=== PATIENT | female | born 1970 | race Two or more races ===

== ENCOUNTER → 2019-10-19 | Outpatient (CLI) | payer OTHER ==
--- NOTE | 2019-10-19 11:58 | XR ---
EXAMINATION TYPE: XR shoulder complete LT DATE OF EXAM: 10/19/2019 COMPARISON: NONE HISTORY: 49-year-old female with shoulder pain TECHNIQUE: 3 views FINDINGS: Subacromial space is preserved. No tendinous or bursal calcifications. No acute fracture, subluxation , or dislocation seen. Suggestion of a tiny calcified granuloma peripheral left upper lobe. IMPRESSION: No acute osseous abnormality seen.
== END | disposition home or self-care (01) ==
LOC: RADXRMAIN 09:24
PROVIDERS: ATTEND Family Medicine
DX: M25.812 Other specified joint disorders, left shoulder (principal); M25.512 Pain in left shoulder

== ENCOUNTER → 2020-02-16 | Outpatient (CLI) | payer OTHER ==
[2020-02-16 10:31] LABS: Basophils % (A) 0 %; Eosinophils # (A) 0.1 k/uL (0-0.7); Eosinophils % (A) 1 %; HCT 38.6 % (34.0-46.0); HGB 12.3 gm/dL (11.4-16.0); Hypochromasia Slight; Lymphocytes # (A) 1.8 k/uL (1.0-4.8); Lymphocytes % (A) 24 %; MCH 29.6 pg (25.0-35.0); MCHC 31.9 g/dL (31.0-37.0); MCV 92.8 fL (80.0-100.0); Mean Platelet Volume 9.1; Monocytes # (A) 0.5 k/uL (0-1.0); Monocytes % (A) 7 %; Neutrophils # (A) 5.2 k/uL (1.3-7.7); Neutrophils % (A) 67 %; Platelet Count 286 k/uL (150-450); RBC 4.16 m/uL (3.80-5.40); RDW 15.2 % (11.5-15.5); WBC 7.8 k/uL (3.8-10.6)
[2020-02-16 12:54] LABS: Erythrocyte Sedimentation Rate 47 mm/hr (0-20)
[2020-02-16 18:13] LABS: Cyclic Citrull Pep IgG Unit <0.5 U/mL; Cyclic Citrullinated Pep IgG NEGATIVE (NEGATIVE)
[2020-02-16 18:20] LABS: Hemoglobin A1C 9.5 % (4.0-6.0)
[2020-02-16 18:48] LABS: T4, Free (Free Thyroxine) 1.5 ng/dL (0.80-1.80)
[2020-02-16 19:23] LABS: African American GFR (CKD) 88.2 (60.0-200.0); Albumin 4.5 g/dL (3.80-4.90); Albumin/Globulin Ratio 1.61 (1.60-3.17); Anion Gap 12.8 mmol/L (4.00-12.00); BUN/Creat Ratio 24.44 Ratio (12.00-20.00); C Reactive Protein 0.4 mg/dL (0.0-0.8); Calcium 9.7 mg/dL (8.7-10.3); Carbon Dioxide 22.2 mmol/L (21.6-31.8); Chol/HDL Ratio 3.35; Globulin 2.8 g/dL (1.6-3.3); LDL Cholesterol,Calculated 94.6 mg/dL (0.0-131.0); Non-African American GFR(CKD) 76.1 (60.0-200.0); Potassium 3.9 mmol/L (3.5-5.5); Total Bilirubin 0.6 mg/dL (0.3-1.2); Total Protein 7.3 g/dL (6.2-8.2); Uric Acid 4.7 mg/dL (2.9-7.7); VLDL Calculation 27.4 mg/dL (5.00-40.00)
== END | disposition home or self-care (01) ==
LOC: LABWHC1 09:06
PROVIDERS: ATTEND Family Medicine
DX: E11.9 Type 2 diabetes mellitus without complications (principal); M54.12 Radiculopathy, cervical region; G89.4 Chronic pain syndrome; R51 Headache
CPT/HCPCS: 36415; 80053; 80061; 82607; 83036; 84439; 84443; 84550; 85025; 85652; 86038; 86140; 86200

== ENCOUNTER → 2020-08-22 | Outpatient (CLI) | payer OTHER ==
[2020-08-22 08:51] VITALS: BP 148/80; PULSE 89; RESP 18; TEMP 98.2
--- NOTE | 2020-08-22 09:50 | P.HPOB ---
History of Present Illness H&P Date: 08/22/20 Chief Complaint: The patient is here for her routine gynecologic exam. This is a 50-year-old with an LMP of 08/14/2020. The patient is here to establish with this office. Her last pelvic exam was about 2 years ago. She is status post tubal ligation. She speaks little Italian and translation when needed was done by her granddaughter and with a translation application on her phone. She is without gynecologic complaints. Her menstrual periods are regular every month. She denies vaginal discharge. Review of Systems She denies respiratory, cardiac, or GI problems. Past Medical History Past Medical History: Diabetes Mellitus, GERD/Reflux, Hyperlipidemia, Hypertension Additional Past Medical History / Comment(s): History of headaches. PAST [employer]OR OF [employer]INO HISTORY: She has no history of STDs. History of Any Multi-Drug Resistant Organisms: None Reported Past Surgical History: Section, Cholecystectomy Additional Past Surgical History / Comment(s): section 2. One vaginal delivery. Past Psychological History: Anxiety, Depression Smoking Status: Former smoker Past Alcohol Use History: None Reported Additional Past Alcohol Use History / Comment(s): Quit smoking around 2017. Past Drug Use History: None Reported Additional History: She is single and is not seeing anybody at this time. She recently moved to [place] from [place]. She does not work outside of the home. - Past Family History Mother Family Medical History: Cancer, Diabetes Mellitus Additional Family Medical History / Comment(s): Breast cancer. A maternal aunt had breast cancer. Father Family Medical History: Cancer, Diabetes Mellitus, Hypertension Additional Family Medical History / Comment(s): Colon cancer. Medications and Allergies Home Medications Medication Instructions Recorded Confirmed Type ARIPiprazole [Abilify] 5 mg PO DAILY 08/22/20 08/22/20 History Atorvastatin [Lipitor] 80 mg PO DAILY 08/22/20 08/22/20 History Butalbital/Aspirin/Caffeine 1 cap PO Q4H PRN 08/22/20 08/22/20 History [Bnbulzvajq-ILF-Canpurvi Cap 50-325-40] DULoxetine HCL [Cymbalta] 30 mg PO DAILY 08/22/20 08/22/20 History Diclofenac Sodium [Diclofenac 100 mg PO DAILY 08/22/20 08/22/20 History Sodium ER] Ertugliflozin Pidolate [Steglatro] 5 mg PO DAILY 08/22/20 08/22/20 History Gabapentin 600 mg PO TID 08/22/20 08/22/20 History Glimepiride [Amaryl] 4 mg PO DAILY 08/22/20 08/22/20 History Omeprazole 20 mg PO DAILY 08/22/20 08/22/20 History Pioglitazone [Actos] 30 mg PO DAILY 08/22/20 08/22/20 History Propranolol HCl [Inderal Xl] 80 mg PO DAILY PRN 08/22/20 08/22/20 History Topiramate [Topamax] 25 mg PO DAILY 08/22/20 08/22/20 History metFORMIN HCL 1,000 mg PO BID 08/22/20 08/22/20 History traMADol HCL 0 mg PO DAILY PRN 08/22/20 08/22/20 History Allergies Allergy/AdvReac Type Severity Reaction Status Date / Time isometheptene [From Migral] AdvReac Unknown Unverified 08/22/20 08:47 Exam Vital Signs Temp Pulse Resp BP Pulse Ox 08/22/20 08:47 98.2 F 89 18 148/80 100 Intake and Output 08/21/20 08/22/20 08/22/20 22:59 06:59 14:59 Other: Weight 80.739 kg Height 5 feet 6 inches, weight 178 pounds, BMI 28.7. This is a well-developed well-nourished female who is alert and oriented times 3 in no acute distress. HEENT: Within normal limits. NECK: Supple without mass or thyromegaly. CHEST AND LUNGS: Clear to auscultation. HEART: Regular rate and rhythm. BREASTS: Are without mass or discharge. AXILLARY EXAM: Negative for adenopathy. BACK: Negative for CVA tenderness. ABDOMEN: Soft, nontender, without palpable masses. PELVIC EXAM: Normal external genitalia. Cervix and vagina appear normal. There is a small thin grayish discharge which is slightly frothy without significant odor. There is no evidence of prolapse. The uterus is midposition, nongravid size and nontender. There are no palpable adnexal masses or tenderness. RECTAL EXAM: negative for mass or tenderness and is negative for occult blood. EXTREMITIES: Nontender. IMPRESSION: 1. 50-year-old premenopausal female status post tubal ligation with asymptomatic slight vaginal discharge on exam today. Differential diagnosis will include bacterial vaginosis, Trichomonas and physiologic discharge. PLAN: 1. Pap smear cotest was performed. 2. Screening mammogram was recently done in June according to the patient and this was done in [place]. 3. Osteoporosis prevention was discussed. I have given her a handout discussing the importance of adequate calcium, vitamin D and regular exercise. She states she will bring this home and have her daughter translate this for her. 4. Affirm testing for trell, Gardnerella, and Trichomonas was obtained from the vagina. 5. She was advised to return in one year for her annual well woman exam and mammogram.
[2020-08-23 04:30] LABS: Gardnerella Positive (Negative); Source Vagina; Trichomonas Negative (Negative)
--- NOTE | 2020-08-30 10:04 | P.PN ---
Progress Note - Text Progress Note Date: 08/30/20 OUTPATIENT FOLLOW-UP NOTE TEST(S)/RESULTS: Test results from 08/22/2020 include negative Pap smear, negative high risk HPV testing. The Pap smear also noted that there was a shift in the vaginal alec suggestive of bacterial vaginosis. Affirm testing also confirmed +Gardnerella and was negative for Laura and Trichomonas. METHOD OF NOTIFICATION: Patient gave the phone to her daughter to speak with me since the patient does not speak Greek very well. She had given me permission to speak with her daughter at the time of her visit when I called with test results. PATIENT COMMENTS: DIAGNOSIS: Negative Pap smear cotest. Bacterial vaginosis with discharge noted on examination. DISCUSSION: The daughter has confirmed with the patient that she is not ALLERGIC to any antibiotics. We have discussed how metronidazole can cause nausea if taken with alcohol use. She is to avoid alcohol use during the one-week course of metronidazole. PLAN: Metronidazole 500 mg by mouth twice a day 7 days. The electronic prescription will be sent to [facility] pharmacy on in [place]. She will call if problems and otherwise return in one year for her well woman examination.
== END | disposition home or self-care (01) ==
LOC: WWCWWP 08:10
PROVIDERS: ATTEND Obstetrics & Gynecology
DX: N89.8 Other specified noninflammatory disorders of vagina (principal)
CPT/HCPCS: 87480; 87510; 87660

== ENCOUNTER 2021-06-05 05:58 | Day surgery (SDC) | payer OTHER ==
[2021-05-31 16:28] VITALS: BMI 29.0
--- NOTE | 2021-06-04 08:52 | P.HPOR ---
History of Present Illness H&P Date: 05/28/21 Chief Complaint: L shoulder pain , impingement CHIEF COMPLAINT: Left shoulder pain HISTORY: Physical Therapy: Yes How many sessions? Did it help? No Injections: Yes How many? Did they help? No Activity Modifications: Unable to use the left arm for many of her daily activities due to the severity of the pain. Brace: No Patient returns for preoperative appointment. At the time of the last appointment she was not able to go into surgery. She presents again today for another pr-operative appointment for the left shoulder. Patient is scheduled for a left shoulder arthroscopy. Her pain and symptoms have not changed since her previous appointment. She notes that since her last appointment she has been cleared by her spike maker after having PE, which is being monitored with the use of Eloquis. The patient did have a stress test today, presenting with the leads still on her chest. She notes that she was cleared again by her spike maker. Patient returns for preoperative appointment. Patient is schedul ed for a left shoulder arthroscopy. Her pain and symptoms have not changed since her previous appointment. She notes that since her last appointment she has been cleared by her spike maker after having PE, which is being monitored with the use of Eloquis. 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 She notes pain for the past 2 years but recently has gotten worse and noted that her left arm hurts more and is weaker than it used to be. Patient has left sided pain that radiates into her left arm. She also notes numbness and weakness into the left upper extremity. Patient has increased pain with movement. She also has stiffness. Patient did a course of physical therapy recently without relief. She continues with physician prescribed home exercises. Patient takes Tramadol and Motrin. She denies any f/c/sob/cp at this time The patients' past social, medical, family, surgical history, as well as review of systems, have been reviewed. Please refer to the Neurosurgery History and Physical form that has been scanned in to our electronic medical record system. Review of Systems 14 points review of systems completed and as stated in HPI, all other systems reviewed are negative. Past Medical History Past Medical History: Diabetes Mellitus, GERD/Reflux, Hyperlipidemia, Hypertension, Pulmonary Embolus (PE) Additional Past Medical History / Comment(s): History of headaches. History of Any Multi-Drug Resistant Organisms: None Reported Past Surgical History: Section, Cholecystectomy Additional Past Surgical History / Comment(s): Section X2. Past Anesthesia/Blood Transfusion Reactions: No Reported Reaction Past Psychological History: Anxiety, Depression Smoking Status: Former smoker Past Alcohol Use History: None Reported Additional Past Alcohol Use History / Comment(s): Quit smoking around 2017. Past Drug Use History: None Reported - Past Family History Mother Family Medical History: Cancer, Diabetes Mellitus Additional Family Medical History / Comment(s): Breast cancer. A maternal aunt had breast cancer. Father Family Medical History: Cancer, Diabetes Mellitus, Hypertension Additional Family Medical History / Comment(s): Colon cancer. Medications and Allergies Home Medications Medication Instructions Recorded Confirmed Type Atorvastatin [Lipitor] 80 mg PO DAILY 08/22/20 06/01/21 History DULoxetine HCL [Cymbalta] 30 mg PO BID 08/22/20 06/01/21 History Diclofenac Sodium [Diclofenac 100 mg PO DAILY 08/22/20 06/01/21 History Sodium ER] Ertugliflozin Pidolate [Steglatro] 5 mg PO DAILY 08/22/20 06/01/21 History Gabapentin 600 mg PO TID 08/22/20 06/01/21 History Glimepiride [Amaryl] 4 mg PO BID 08/22/20 06/01/21 History Omeprazole 20 mg PO DAILY 08/22/20 06/01/21 History Pioglitazone [Actos] 30 mg PO DAILY 08/22/20 06/01/21 History Propranolol HCl [Inderal Xl] 80 mg PO DAILY 08/22/20 06/01/21 History Topiramate [Topamax] 25 mg PO DAILY 08/22/20 06/01/21 History metFORMIN HCL [Glucophage] 1,000 mg PO DAILY 08/22/20 06/01/21 History traMADol HCL 50 mg PO DAILY 08/22/20 06/01/21 History Amitriptyline HCl 50 mg PO HS 06/01/21 06/01/21 History Butalbital/Caffiene (? Dose) 1 tab PO DAILY PRN 06/01/21 06/01/21 History Ferrous Sulfate [Iron] 325 mg PO DAILY 06/01/21 06/01/21 History Insulin Glargine [Lantus Vial] 50 unit SQ 1700 06/01/21 06/01/21 History Insulin Glargine [Lantus Vial] 50 unit SQ QAM 06/01/21 06/01/21 History Metoprolol 25 mg PO DAILY 06/01/21 06/01/21 History Allergies Allergy/AdvReac Type Severity Reaction Status Date / Time isometheptene [From Migral] AdvReac Unknown Unverified 05/31/21 16:01 Physical Examination Osteopathic Statement: *. No significant issues noted on an osteopathic structural exam other than those noted in the History and Physical/Consult. General: Awake, alert, appropriate for age, in no acute distress. HEENT: No unusual neck masses around region of lateral neck triangle, thyroid, supraclavicular groove Heart: Regular rate and rhythm, normal S1, S2 and no murmur/gallop. Lungs: Clear to auscultation bilaterally with no use of accessory muscles. Extremities: Skin warm and dry without acute lesions, coloration, temperature, skin intact, no tenderness or erythema Integument: Hairy patches: Absent Dorsal skin dimples: Absent Cafe au lait spots: Absent Surgical incisions: None present Palpation: Please see Pain drawing on Intake sheet for further detail. left shoulder pain and tenderness to palpation over the bicipital groove as well as the biceps tendon proximally. Some tenderness to palpation over the lateral aspect of the before meals joint. Before meals joint tenderness noted as well. POSTURAL and MUSCULO-SKELETAL EVALUATION: Coronal Balance: NEUTRAL Recumbent testing: Patient is able to lay flat on back Sagittal Balance: NEUTRAL Shoulder Profile: LEVEL Pelvic Girdle: LEVEL Neck ROM: UNRESTRICTED Lumbar ROM: UNRESTRICTED Shoulder ROM: Symmetrical Hip ROM: Symmetrical Knee ROM: Symmetrical Hands: Normal appearance, symmetrical Feet: Normal appearance, Symmetrical VASCULAR STATUS : LEFT RIGHT Wrist Pulses INTACT INTACT Pedal Pulses (Dors. pedis & post.tibialis) INTACT INTACT Color NORMAL NORMAL Edema Absent Absent NEUROLOGIC EXAMINATION: Mental Status:Awake and alert, fully oriented, with normal attention, concen tration and memory, and fluent, appropriate speech. Cranial Nerves: I: Olfactory not tested. II: Visual acuity normal, no visual field deficit noted with confrontation. III,IV: Normal pupillary reflexes & intact extraocular movements without nystagmus. V,: Intact symmetrical facial sensation. VII: Intact symmetrical facial motor movement VIII: Hearing intact. IX,X: Intact gag, swallow, & normal voice. XI: Sternocleidomastoid, trapezius function intact. XII: Tongue midline with normal movements. L'hermitte's Sign: Negative / absent Spurling'Sign: Absent bilaterally. Cubital percussion test: Absent bilaterally. Bib-Tinel sign - Carpal region: Absent bilaterally. Straight Leg Raising: Absent bilaterally. Crossed straight leg raise: negative O8 MOTOR EXAM (0-5/5, N/T) STRENGTH RIGHT LEFT Shoulder Abd (not part of the PAXTON score) 5 4 2*to pain Elbow Flexors 5 4 2* topain Elbow Extensor 5 5 Wrist Dorsiflexors 5 5 Finger Abductor 5 5 [employer] 5 5 Hip Flexor (Not part of PAXTON Motor score) 5 5 Knee Flexor 5 5 Knee Extensor 5 5 Ankle dorsiflexor 5 5 Ankle plantarflexion 5 5 Extensor hallucis 5 5 REFLEXES(0-4/2, NT) RIGHT LEFT Upper Extremities 2 2 Lower Extremities 2 2 Pathological Reflexes RIGHT LEFT Scott's Absent Absent Clonus Absent Absent Babinski Absent Absent # Indicates mechanical impairment Muscle appearance: Symmetrical, without signs of atrophy or dystrophy. Rectal Tone:Deferred Normal, strong with volition control Sensory system (0-4, N/T) Test type RU TAMMIE RL LL Joint-Position 2 2 2 2 Vibration 2 2 2 2 Pain & LT sense 2 2 2 2 Dermatomal Deficit: None None None None Gait and Functional Evaluation: Ambulatory aids: Independent Romberg's test: Intact bilaterally Toe heel walk / heel-toe walk intact while maintaining satisfactory balance? yes Squatting/straightening w/o assistance to a min of 60 degree knee flexion? yes Single leg stance: intact Trendelenburg sign negative bilaterally Hand and finger dexterity intact bilaterally? yes Disdiadochokinesis examination negative bilaterally? yes Special Tests: Impingement: positive PM17 PM21 Neer test: positive PM17 PM21 Speed test: positive PM19 PM23 Anterior apprehension sign: negative PM18 PM22 Sulcus sign: negative PM18 PM22 Cross-body adduction sign: positive PM18 PM22 Scapular winging: negative PM19 PM23 Posterior muscle atrophy: negative PM19 PM23 Distal Neurovascular exam: intact PM19 PM23 C-Spine ROM: abnormal PM8 Spurling's: positive PM3 SHOULDER:left Tenderness: PM16 PM20 Bony area(s): anterior subacromial space, bicipital groove PM16 Evidence of a left shoulder impingement upon examination. PM20 Crepitation at subacromial bursa: none PM16 PM20 Range of Motion: limited due to pain Motor strength: External rotation at zero: 5/5 PM19 PM23 Abduction: 5/5 Results XRAY: 3 view of the left shoulder is obtained and reviewed this demonstrates a congruent GH joint, no major OA changes. Good humeral height, no bony abnormalities. No fractures noted. XRAY: AP lateral flexion extension radiographs of the cervical spine obtained and reviewed in the office today. This demonstrates before meals 45 grade 1 spondylolisthesis which is accentuated on flexion films. There is also spondylosis from C5 to C7 which is noted. There are no fractures or dislocations noted. Overall alignment is fire fairly well maintained in the sagittal and coronal planes. Previous radiographic exams are reevaluated. This demonstrates: - no fracture dislocation over the patient does have a grade 2 SLAP tear with biceps tendinitis as well as fluid around the bicipital tendon in the bicipital groove. Patient has some osteophyte changes no large Bankart lesions or tears noted. No overt rotator cuff tear however some tendinosis and fraying is noted on the underside. Patient does have subacromial bursitis as well as subacromial impingement noted. This correlates with her clinical exam at this time. Assessment and Plan Assessment: It was my pleasure to have seen and examined Joy. I reviewed the patient's clinical syndrome, physical findings, and imaging studies during the appointment today. It is my impression that the patient has a diagnosis of. 1. Left shoulder impingement with slap tear. 2.Left shoulder proximal biceps tendonitis. 3. left shoulder subacromial impingement Plan: discussed my impression and treatment options with the patient. 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 I discussed operative and non-operative options with the patient and they have elected to proceed with the following surgical procedure: Left arthroscopic subacromial decompression (CPT 36379), possible probable arthroscopic labral repair , possible probable biceps tendon (long head) release (CPT 60424) The indications, risks, benefits, and alternatives to surgery were discussed with the patient at length. Specifically (but not limited to) the risks of infection, stiffness, recurrence of symptoms, need for revision surgery, local numbness, neurovascular injury, and blood clots were discussed. The patient's questions were answered. The patient should remain off work I instructed the patient on a home exercise regimen. In our visit today Ms. Rivera and I have had a chance to go over my understanding of the patient's current condition, the natural course history without intervention and various interventional options. Questions were invited and answered, and the patient wishes to proceed as outlined above. Orthopedic Surgery Risk Review Ms. Rivera is a 51 year old female presenting for evaluation of sudden onset L shoulder pain and weakness after unknown injury . It was my pleasure to have seen and examined Ms. Rivera . In our visit today we have had a chance to go over subjective complaints, physical examination findings and treatments including the natural course history without intervention and various interventional options. Imaging demonstrates Bicep tendonitis, SLAP tear, bankart and subacromial bursitis and impingement with possible small RCT. On physical exam, Ms. Rivera demonstrates pain with motion of L shoulder with abduction, acuna pos, speeds pos, no drop arm, pos jerk test, which is NV intact at this time. I have explained to the patient that this fracture needs stabilization. Based on the patients imaging, physical exam, and the rapid progression and disabling nature of her symptoms, at this time I recommend surgery in the form or a: L shoulder arthroscopy with subacromial decompression, bicep tenotomy, labral debridment, possible rotator cuff repair. I discussed the risk and benefits of this procedure at length with Ms. Rivera . Questions were invited and answered, and the patient wishes to proceed as outlined below. Currently, I am recommendin.L shoulder arthroscopy with subacromial decompression, bicep tenotomy, labral debridment, possible rotator cuff repair. 2. Review of surgical risks and benefits as well as an educational packet on the proposed surgical procedure. Risks: All surgical procedures come with inherent risks, including those related to positioning, anesthesia, intraoperative findings, and postoperative complications. It is important to understand that surgery does not come with any guarantee of a successful outcome as complications and adverse events are always possible. The patient was given a handout discussing the surgical procedure and risks associated with the intervention, both of which were discussed with the patient. These risks include but are not limited to the following: - Experiencing same, different or even worse symptoms compared to before surgery. - Requiring further surgery or other forms of treatment presently or at some time in the future . - On an extreme but fortunately relatively rare basis severe complication such as blindness, stroke, heart attack, temporary and/or permanent nerve injury, paralysis, coma, or may occur, sometimes without known explanation. - Surgical complications may include but are not limited to risk of infection, fluid accumulation in the surgical dissection site, including a seroma or hematoma, that requires additional surgery, wound drainage, bleeding, new numbness or weakness, vision changes/loss, spinal fluid leakage, non-healing and/or infected incision, headaches, difficulty or inability to swallow, hoarseness, hemopneumothorax, pneumothorax, injury to nerves, spinal cord, blood vessels, lymphatics or other vital organs (i.e., bowel injury, injury to the great vessels); heterotopic bone formation; complications related to the hardware such as screws, rods, including misplaced hardware, device failure, hardware fracture/breakage, or hardware loosening; retained surgical instrumentations or devices and the need for further surgery. - Medical risks of the planned surgery include but are not limited to generalized Infections to the whole body or local areas outside of the surgical site (sepsis), heart attack, bleeding, anaphylaxis, meningitis, seizure, epilepsy, hearing loss, burn hillman, laceration of the head or other areas of the body, bruising, hypersensitivity of the skin, bladder over distension; allergic reaction; shoulder injury related to positioning; fat, blood and air clots to other areas of the body like heart, lungs, brain; failure of internal organs such as lungs, kidneys, liver and excessive bleeding. If blood transfusions are necessary, note that transfusions may cause intolerance reactions such as anaphylaxis or other complex reactions. Despite best efforts, the results of surgery might not heal in terms of bone, soft tissues such as skin, fascia, ligaments, and joints. [facility] is an educational center that serves as a training facility for physician assistants, nurses, orthopedic residents and fellows. Residents are physicians who are completing their surgical intensive training following medical school. They assist in the operating room with direct supervision of the attending surgeons. [place] are surgeons who have completed their training and eligible for board certification. They have opted for an elective year of more specialized training in their field. They assist in the operating room under the supervision of the attending surgeons. Physician assistants are medically trained surgical providers who function in the outpatient, inpatient, and operating room setting under the direct supervision of the attending surgeon. [facility] has multiple operating rooms with single and overlapping rooms running daily. They currently function under the required guidelines as produced by the [facility] Finance Committee with regards to the overlapping rooms and will continue to comply with changes to this policy as they occur. The requirements include and are complied with as follows: (1) the critical portions of the overlapping rooms will not occur at the same time, (2) the attending physician will be physically present during the critical portions of the procedure and immediately available during the entire case, and (3) a back-up attending is designated should the primary attending not be immediately available. The patient has had a chance to review all the listed information, has been g iven print outs detailing this information, and has had all his/her questions answered to their satisfaction. It was my pleasure to have seen and examined Ms. Rivera . In our visit today we have had a chance to go over my understanding of our patient's current condition, the natural course history without intervention and various interventional options. Questions were invited and answered, and the patient wishes to proceed as outlined above. I have seen and examined the patient for 25 minutes and we have spent more than 50% of the time in repeat and detailed counseling about the patient's condition, its natural course history with out and as much as can be predicted with surgery and re-review of various surgical treatment options. In conclusion,Ms. Rivera requested we proceed with the above suggested surgery and are willing to accept risks and limitations of the suggested surgery as nature of the disease process and our best attempts at treatment for the condition. Thank you again for allowing us to be part of your patient's care. Please don't hesitate to contact me if you have any further questions. Signed and authenticated by: Santiago Roque DO [facility] [address] [place] [address] [address] This message is confidential, intended only for the named recipient(s) and may contain information that is privileged or exempt from disclosure under applicable law. If you are not the intended recipient(s), you are notified that the dissemination, distribution or copying of this information is strictly prohibited. If you received this message in error, please notify the sender then delete this message. Patient verbalizes understanding of the information discussed.
[~2021-06-05 05:58] MED LIST: DEXAMETHASONE SOD PHOSPHATE 4 MG/ML 1 ML VIAL IV ONE; LACTATED RINGERS 1,000 ML IV SCH; ONDANSETRON 4 MG/2 ML VIAL IVP ONE; Pre Op ABX Message 1 EACH MISC MISCELLANE ONE
[2021-06-05] MEDS ORDERED: LIDOCAINE 1% (10MG/ML) FOR IV START INTRADERMA ONE (06:30)
[2021-06-05 06:54] LABS: Glucose,Whole Blood 210 mg/dL (75-99)
[2021-06-05] MEDS ORDERED: HYDROmorphone 0.5 MG/0.5 ML SYRINGE IVP PRN (07:00)
[2021-06-05] MEDS ORDERED: MIDAZOLAM 2 MG/2 ML VIAL IV ONE (07:01)
[2021-06-05] MEDS ORDERED: fentaNYL (PF) 50 MCG/ML 2 ML AMP IV ONE (07:01)
--- NOTE | 2021-06-05 07:03 | P.PN ---
Progress Note - Text Progress Note Date: 06/05/21 H&P UPDATE Pt s/e in pre op. NO changes to H&P in the last 30 days. Site marked. Consent confirmed. 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 Pt is ready and willing to proceed. Anesthesia to provide IS block of Lt shoulder. They have deemed her fit for surgery. Pt given WBD of abx. We will proceed.
[2021-06-05] MEDS ORDERED: ROPIVACAINE 5 MG/ML 30 ML VIAL ONE (07:23)
[2021-06-05] MEDS ORDERED: LIDOCAINE 1% INJ 10MG/ML (20 ML MDV) ONE (07:23)
[2021-06-05] MEDS ORDERED: PHENYLEPHRINE-0.9% NACL SYG 1,000 MCG/10 ML SYRINGE ONE (07:23)
[2021-06-05] MEDS ORDERED: PROPOFOL 10 MG/ML 20 ML VIAL IV ONE (07:23)
[2021-06-05] MEDS ORDERED: fentaNYL (PF) 50 MCG/ML 2 ML AMP ONE (07:23)
[2021-06-05] MEDS ORDERED: DEXAMETHASONE SOD PHOSPHATE 4 MG/ML 1 ML VIAL ONE (07:23)
[2021-06-05] MEDS ORDERED: SUCCINYLCHOLINE CHLORIDE 100 MG/5 ML SYR IV ONE (07:23)
[2021-06-05] MEDS ORDERED: GLYCOPYRROLATE 0.2 MG/ML 2 ML VIAL ONE (07:23)
[2021-06-05] MEDS ORDERED: ROCURONIUM 10 MG/ML (5 ML VIAL) IV ONE (07:23)
[2021-06-05] MEDS ORDERED: NEOSTIGMINE 1 MG/ML 10 ML VIAL ONE (07:23)
[2021-06-05] MEDS ORDERED: SODIUM CHLORIDE 0.9% 100 ML with ceFAZolin 2,000 MG IV ONE ×2 (07:26)
[2021-06-05] MEDS ORDERED: LIDOCAINE 0.5%-EPI 1:200,000 50 ML VIAL SQ ONE (08:09)
[2021-06-05] MEDS ORDERED: EPINEPHrine (PF) 1 ML in SODIUM CHLORIDE 0.9% IRRIGATIO 3,000 ML IRRIGATION ONE ×4 (08:33)
[2021-06-05] MEDS ORDERED: LACTATED RINGERS 1,000 ML IV ONE (08:42)
[2021-06-05 09:26] VITALS: TEMP 97.2
[2021-06-05 09:30] LABS: Glucose,Whole Blood 214 mg/dL (75-99)
[2021-06-05 10:06] VITALS: RESP 20
[2021-06-05 11:09] VITALS: PULSE 76
[2021-06-05 11:10] VITALS: BP 123/74
--- NOTE | 2021-06-05 12:56 | P.ANPRN ---
Procedure Note - Anesthesia - Nerve Block Performed Left Interscalene Single Date of Procedure: 06/05/21 Procedure Start Time: 07:00 Procedure Stop Time: 07:07 Location of Patient: PreOp Indication: Acute Post-Operative Pain, Requested by Surgeon Specifically requested for management of pain by DrSivakumar: Santiago Roque Sedation Type: Sedate with meaningful contact maintained Preparation: Sterile Prep Position: Supine Needle Gauge: 21 Ultrasound used to visualize needle placement: Yes Ultrasound used to observe medication spread: Yes Injectate: 0.5% Ropivacaine (see comment for volume) Blood Aspirated: No Pain Paresthesia on Injection Noted: No Resistance on Injection: Normal Image Stored and Saved: Yes Events: Uneventful and Well Tolerated (0.375% Ropivicaine 20cc)
--- NOTE | 2021-06-05 15:38 | P.OP ---
Date of Procedure: 06/05/21 Preoperative Diagnosis: 1. Left shoulder impingement 2. Lt biecp tendonitis 3. Type II SLAP tear Lt labrum 4. AC joint arthritis Postoperative Diagnosis: . 1. Left shoulder impingement 2. Lt biecp tendonitis 3. Type II SLAP tear Lt labrum 4. AC joint arthritis Procedure(s) Performed: 1. Lt shoulder diagnostic arthroscopy 2. Lt bicep tenotomy 3. Lt labarl debridement 4. Lt subacromial decompression and rotator cuff debridment 5. Lt distal clavicle resection Implants: none Anesthesia: GETA Surgeon: Santiago Roque Incident Commander #1: Damian Lieberman (Was present for the entire case and necessary due to the complexity of the case) Estimated Blood Loss (ml): 5 IV fluids (ml): 1,000 Urine output (ml): 0 Pathology: none sent Condition: stable Disposition: PACU Indications for Procedure: 51 yo female with Lt shoulder impingement, Lt Type II SLAP tear and bicep tendonitis with AC joint OA presented with c/o shoulder pain and painful ROM of her shoulder. She also is having some neck pain and seemingly radicular symptoms, however she complains of fairly pinoint pain in the shoulder over the anterior bicep as well as the AC joint. She had positive signs of impingment and MRI showed bicep tendonitis, fluid and Type II SLAP tear. We discussed and she went through conservative options including PT, Home exercise, injections, medications but none of these helped her symptoms and she has opted for surgical debridement and arthroscopy of the Lt shoulder. We discussed all the risks and benefits and limitations of the surgery and she agreed. She is willing to proceed. Description of Procedure: The patient was seen and examined in the preoperative area. All preoperative protocols were followed. Informed consent was obtained risks and benefits of the procedure were discussed at length. Risks including bleeding infection damage to the surrounding tissue and risk of reoperation were discussed with the patient. Risk of anesthesia up to and including was a discussed with the patient. These are outlined in the risk reviewed. They were willing to accept these risks and all of the risks of surgery. The patient was given a weight- based dose of antibiotics in the form of 2 g Ancef. The patient was seen and evaluated by the anesthesia team who deemed them fit for surgery. The site was marked, the patient was willing to proceed with the procedure. The patient was transferred to the operative suite by the Department of anesthesia. There were then drifted off to sleep by the department of anesthesia and regional block interscalene as well as GETA anesthesia was used. Once adequate anesthesia had been obtained the patient was carefully transferred to the operative bed. All bony prominences were padded accordingly. SCDs were placed on the nonoperative lower extremities. Arms were well padded. Patient was placed in a beachchair mckeon and head miller neck was placed in neutral checked with anesthesia in her blood pressure was adequate and so we then registered in the beachchair position. The nonoperative arm was placed on a well-padded arm mckeon operative arm was exposed and she was secured to the table to safety strap. Left arm was then exposed 10:15 were placed around the shoulder Preoperative briefing was done with the operative team and everyone was ready for the procedure to start. The patients left arm was then prepped and draped in the normal sterile fashion. Timeout was then performed and all parties in agreement with the procedure to be performed. Skin marker was used to zabrina at the patient's left shoulder with then started with a standard posterior lateral portal which was made with a skin knife and blunt trocar was then inserted into the glenohumeral joint and camera inserted diagnostic arthroscopy then ensued showing type II SLAP tear of the labrum biceps tendinitis which was placing stress on the labrum no rotator cuff pathology and grade 1-2 chondromalacia of the glenoid surface. There was no Bankart lesion noted in the shoulder was stable through range of motion within placed a 18-gauge needle and the rotator interval and incision was made in its avoid re-then entered with a probe and probed the biceps tendon it was placing undue stress on the SLAP tear and so it was decided on biceps tenotomy this was performed with a arthroscopic scissors and electrocautery. The arm was taken through a range of motion to allow for the biceps tendon to subside we then used a shaver to clean the blunt end of the biceps tendon and roughen the edges of the labral tear superiorly as well as the glenoid superiorly. We then debrided the edges very carefully keeping intact the labrum as much as possible. We then debrided the underside of the rotator cuff and it was stable. We then removed the shaver and the blunt trocar was inserted into the subacromial space we then perform subacromial bursectomy after creating a lateral portal. This is done with a shaver and electrocautery we then performed subacromial decompression using a high-speed bur followed by a distal clavicle resection due to high-grade stenotic and arthrosis at the AC joint. Subacromial spurs were removed using high-speed bur subclavicular spur was removed using high-speed bur as well. We then use electrocautery to stop any bleeders shaver was then used to clean the superior surface of the cuff more thoroughly the arm was taken through range of motion and there was no cuff tear identified. Probe was used to probe the cuff and it was of adequate tissue durability. We then lavaged the shoulder and the scope was removed. We then closed the wounds with 3-0 nylon in a simple fashion. The wound was then sterilely cleaned and dressed with Adaptic 4 x 4's ABDs and tape. The patient was then transferred back to their hospital bed. There were awakened by department of anesthesia having tolerated the procedure very well with no complications. The patient was then transported to the postoperative care unit in stable condition.
== END 2021-06-05 11:12 | disposition home or self-care (01) ==
LOC: OR 05:58
PROVIDERS: ATTEND Orthopaedic Surgery
DX: M25.812 Other specified joint disorders, left shoulder (principal); M75.22 Bicipital tendinitis, left shoulder; S43.432A Superior glenoid labrum lesion of left shoulder, initial encounter; X58.XXXA Exposure to other specified factors, initial encounter; M19.012 Primary osteoarthritis, left shoulder; E11.9 Type 2 diabetes mellitus without complications; K21.9 Gastro-esophageal reflux disease without esophagitis; E78.5 Hyperlipidemia, unspecified; I10 Essential (primary) hypertension; I26.99 Other pulmonary embolism without acute cor pulmonale; Z98.891 History of uterine scar from previous surgery; Z90.49 Acquired absence of other specified parts of digestive tract; F41.9 Anxiety disorder, unspecified; F32.9 Major depressive disorder, single episode, unspecified; Z87.891 Personal history of nicotine dependence; Z83.3 Family history of diabetes mellitus; Z80.3 Family history of malignant neoplasm of breast; Z82.49 Family history of ischemic heart disease and other diseases of the circulatory system; Z80.0 Family history of malignant neoplasm of digestive organs; Z79.84 Long term (current) use of oral hypoglycemic drugs; Z79.4 Long term (current) use of insulin; Z79.899 Other long term (current) drug therapy; Z88.8 Allergy status to other drugs, medicaments and biological substances
CPT/HCPCS: 64415; 81025; 76942; 29823; 29824; J2250; J1100; J2710; J2405; J0690; J0171; J2001; J3010; J2795; J2370; J0330; J2704

== ENCOUNTER 2022-01-29 05:44 | Day surgery (SDC) | payer OTHER ==
[2022-01-29] MEDS ORDERED: NITROGLYCERIN SL TABS 0.4 MG TAB SUBLINGUAL PRN (05:58)
[2022-01-29] MEDS ORDERED: ASPIRIN 325 MG TAB PO STA (05:58)
[2022-01-29] MEDS ORDERED: ALPRAZolam 0.25 MG TAB PO PRN (05:58)
[2022-01-29] MEDS ORDERED: SODIUM CHLORIDE 0.9% 1,000 ML in EMPTY BAG 1 BAG IV SCH (05:58)
[2022-01-29] MEDS ORDERED: ALPRAZolam 0.5 MG TAB PO PRN (05:58)
[2022-01-29] MEDS ORDERED: SODIUM CHLORIDE 0.9% 1,000 ML IV ONE (06:16)
[2022-01-29 06:33] LABS: Glucose,Whole Blood 155 mg/dL (75-99)
[2022-01-29 06:35] VITALS: RESP 16; TEMP 98.1
[2022-01-29 06:45] LABS: Basophils % (A) 0 %; Eosinophils # (A) 0.1 k/uL (0-0.7); Eosinophils % (A) 2 %; HCT 39.4 % (34.0-46.0); HGB 12.7 gm/dL (11.4-16.0); Lymphocytes # (A) 2.3 k/uL (1.0-4.8); Lymphocytes % (A) 37 %; MCHC 32.3 g/dL (31.0-37.0); MCV 86.9 fL (80.0-100.0); Mean Platelet Volume 8.2; Monocytes # (A) 0.3 k/uL (0-1.0); Monocytes % (A) 5 %; Neutrophils # (A) 3.3 k/uL (1.3-7.7); Neutrophils % (A) 53 %; Platelet Count 307 k/uL (150-450); RBC 4.54 m/uL (3.80-5.40); RDW 15.4 % (11.5-15.5); WBC 6.3 k/uL (3.8-10.6)
[2022-01-29 06:55] LABS: African American GFR (CKD) >90 (>60 ml/min/1.73 sqM); Anion Gap 9 mmol/L; Blood Urea Nitrogen 13 mg/dL (7-17); Calcium 9.2 mg/dL (8.4-10.2); Carbon Dioxide 21 mmol/L (22-30); Chloride 106 mmol/L (98-107); Glucose 167 mg/dL (74-99); Non-African American GFR(CKD) >90 (>60 ml/min/1.73 sqM); Sodium 136 mmol/L (137-145)
[2022-01-29] MEDS ORDERED: HEPARIN SODIUM 1,000 UN/ML (10ML VL) ONE (10:44)
[2022-01-29] MEDS ORDERED: MIDAZOLAM 2 MG/2 ML VIAL IV ONE (10:55)
[2022-01-29] MEDS ORDERED: LIDOCAINE 1% INJ 10MG/ML (20 ML MDV) SQ ONE (10:57)
[2022-01-29] MEDS ORDERED: VERAPAMIL 2.5 MG/ML 2 ML AMP INTRAARTER ONE (10:58)
[2022-01-29] MEDS ORDERED: IOPAMIDOL-370 125ML BTL INJ ONE (11:05)
[2022-01-29] MEDS ORDERED: RX INFO: IV CONTRAST WAS GIVEN 1 EACH MISC MISCELLANE PRN (11:11)
[2022-01-29] MEDS ORDERED: SODIUM CHLORIDE 0.9% 1,000 ML IV SCH (11:15)
--- NOTE | 2022-01-29 11:15 | P.PCN ---
Date of Procedure: 01/29/22 Operative Findings: CARDIAC CATHETERIZATION PERFORMING PHYSICIAN: Ariel Guevara MD, RPVI PROCEDURE PERFORMED: 1. Selective right and left coronary angiogram 2. Left heart catheterization INDICATION: Chest discomfort concerning for angina in this 51-year-old female patient with multiple risk factors for CAD including family history COMPLICATION: None APPROACH: Right radial artery LEVEL OF SEDATION: Moderate with a sedation length of then minutes PROCEDURE DESCRIPTION: After obtaining an informed consent, the patient was brought to cardiac lab nurse. Local anesthesia was performed using lidocaine subcutaneously. The right radial artery was cannulated using Seldinger technique, the guidewire passed easily, following that we advanced a 5-Hungarian sheath dilator assembly, the wire and dilator were removed and sheath was flushed. Following that, 2 mg of verapamil along with 5000 unit heparin were given. Selective right and left coronary angiogram using a 6-Hungarian JR4 and JL 3.5 catheters. Following that we did left heart catheterization using 6-Hungarian pigtail catheter. The procedure was completed there was no complication. SELECTIVE CORONARY ANGIOGRAM: The right coronary artery: Is a medium caliber vessel nondominant vessel and appears to be angiographically normal Left main: Is angiographically normal. Bifurcates into a LCx and LAD The left circumflex: Is a large caliber vessel and dominant vessel. Its angiographically normal and gives rises into the first and second OM branches and both appeared to be angiographically normal distally bifurcates into PDA and PLV branches both appeared to be angiographically normal The left anterior descending artery: Is angiographically normal. The LAD reach the apex. The LAD gives rises into small diagonal branches appears to be angiographically normal HEMODYNAMICS: The EDP was 15 mmHg with no gradient across aortic valve CONCLUSION: 1. Normal coronary angiogram 2. Normal left-sided filling pressure POSTPROCEDURE MANAGEMENT: Medical treatment and follow-up with the patient
[2022-01-29] MEDS ORDERED: ACETAMINOPHEN TAB 325 MG TAB ONE (12:51)
[2022-01-29 15:08] VITALS: BP 129/69; PULSE 72
== END 2022-01-29 15:18 | disposition home or self-care (01) ==
LOC: CATHCVL 05:44
PROVIDERS: ATTEND Internal Medicine Interventional Cardiology
DX: R07.89 Other chest pain (principal); R06.02 Shortness of breath; I10 Essential (primary) hypertension; E78.5 Hyperlipidemia, unspecified; Z20.822 Contact with and (suspected) exposure to COVID-19; Z82.49 Family history of ischemic heart disease and other diseases of the circulatory system; Z86.718 Personal history of other venous thrombosis and embolism; E11.51 Type 2 diabetes mellitus with diabetic peripheral angiopathy without gangrene; Z79.01 Long term (current) use of anticoagulants; Z79.84 Long term (current) use of oral hypoglycemic drugs; Z79.899 Other long term (current) drug therapy
CPT/HCPCS: 93458; 80048; 85025; 81025; 87635; C1894; J2250; J2001; J1644; Q9967

== ENCOUNTER → 2023-03-05 | Outpatient (CLI) | payer OTHER ==
--- NOTE | 2023-03-05 12:08 | XR ---
EXAMINATION TYPE: XR chest 2V DATE OF EXAM: 03/05/2023 COMPARISON: 11/07/2022 HISTORY: Shortness of breath TECHNIQUE: Frontal and lateral views of the chest are obtained. FINDINGS: Scattered senescent parenchymal changes noted. No evidence for infiltrate. No evidence for atelectasis. Heart size is stable. Mediastinal structures are stable and grossly unremarkable. No evidence for hilar prominence. Degenerative changes dorsal spine. IMPRESSION: 1. No evidence for acute pulmonary disease.
== END | disposition home or self-care (01) ==
LOC: RADXRMAIN 11:49
PROVIDERS: ATTEND Family Medicine
DX: Z01.818 Encounter for other preprocedural examination (principal); R06.02 Shortness of breath
CPT/HCPCS: 71046

== ENCOUNTER → 2023-03-10 | Outpatient (CLI) | payer OTHER ==
[2023-03-10 16:07] LABS: Blood Urea Nitrogen 11.5 mg/dL (9.0-27.0); Carbon Dioxide 23.7 mmol/L (21.6-31.8); Chloride 101 mmol/L (96-109); Glucose 151 mg/dL (70-110); Potassium 4.1 mmol/L (3.5-5.5); Sodium 139 mmol/L (135-145)
[2023-03-10 16:45] LABS: Basophils # (A) 0.03 X 10*3/uL (0.00-0.10); Basophils % (A) 0.4 %; Eosinophils # (A) 0.05 X 10*3/uL (0.04-0.35); Eosinophils % (A) 0.7 %; HCT 41.4 % (37.2-46.3); Lymphocytes # (A) 2.02 X 10*3/uL (0.90-5.00); Lymphocytes % (A) 30.2 %; MCH 28.3 pg (27.0-32.0); MCHC 31.4 d/dL (32.0-37.0); MCV 90.2 FL (80.0-97.0); Mean Platelet Volume 11.4 FL (9.5-12.2); Monocytes # (A) 0.44 X 10*3/uL (0.20-1.00); Monocytes % (A) 6.6 %; NRBC Per 100 WBC 0 X 10*3/uL (0.00-0.01); Neutrophils # (A) 4.14 X 10*3/uL (1.80-7.70); Platelet Count 349 X 10*3/uL (140-440); RBC 4.59 X 10*6/uL (4.10-5.20); RDW 14.1 % (11.5-14.5); WBC 6.69 X 10*3/uL (4.50-10.00)
== END | disposition home or self-care (01) ==
LOC: LABWHC1 09:55
PROVIDERS: ATTEND Obstetrics & Gynecology
DX: Z01.812 Encounter for preprocedural laboratory examination (principal); E11.9 Type 2 diabetes mellitus without complications; N93.8 Other specified abnormal uterine and vaginal bleeding; N80.00 Endometriosis of the uterus, unspecified
CPT/HCPCS: 36415; 80051; 82565; 82947; 84520; 85025; 87086

== ENCOUNTER 2023-03-18 05:35 | Observation (INO) | payer OTHER ==
--- NOTE | 2023-03-17 13:46 | P.HPOB ---
History of Present Illness H&P Date: 03/17/23 Chief Complaint: Abnormal uterine bleeding Ms. Tay is a 52 year old female, , here for surgical management of Abnormal Uterine Bleeding. Of note, the patient is a kake [place]isian speaker and speaks very limited Bahraini. She has very heavy, very prolonged periods that have been progressively worsening for the past 2 years. Menses last 7 days and she uses approximately 12 or more pads daily. Recent ultrasound of the uterus measured 12 x 6 4.7 cm. Uterus appeared antevered, with scarring noted inside the uterus. Adenomyosis is suspected. Endometrial thickness measured 10mm. Bilateral ovaries were within normal limits. Of note, the patient had a pulmonary embolism approximately 18 monhs ago and was initially placed on Eliquis. The Eliquis exacerbated her bleeding and was stopped. She was recommended by her physician to continue taking Aspirin. She is unsure what caused her to have a venous thromboembolism. Past Medical History Past Medical History: Diabetes Mellitus, GERD/Reflux, Hyperlipidemia, Hypertension, Pulmonary Embolus (PE) Additional Past Medical History / Comment(s): History of headaches. Insulin- requiring type 2 diabetes. Pulmonary embolus in [address]. [address] Dr Guevara for elevated heart rate, neuropathy pain in extremities History of Any Multi-Drug Resistant Organisms: None Reported Past Surgical History: Section, Cholecystectomy, Orthopedic Surgery Additional Past Surgical History / Comment(s): Section X2. Left shoulder surgery. Past Anesthesia/Blood Transfusion Reactions: No Reported Reaction Smoking Status: Former smoker - Past Family History Mother Family Medical History: Cancer, Diabetes Mellitus Additional Family Medical History / Comment(s): Breast cancer. A maternal aunt had breast cancer. Father Family Medical History: Cancer, Diabetes Mellitus, Deep Vein Thrombosis (DVT), Hypertension Additional Family Medical History / Comment(s): Colon cancer. Brother(s) Family Medical History: Deep Vein Thrombosis (DVT) Medications and Allergies Home Medications Medication Instructions Recorded Confirmed Type metFORMIN HCL [Glucophage] 1,000 mg PO BID 08/22/20 03/13/23 History Amitriptyline HCl 50 mg PO HS 06/01/21 03/13/23 History Ferrous Sulfate [Iron] 325 mg PO DAILY 06/01/21 03/13/23 History Valsartan 160 mg PO DAILY 10/08/22 03/13/23 History methocarbamoL [Methocarbamol] 1,000 mg PO TID PRN 10/08/22 03/13/23 History Empagliflozin [Jardiance] 10 mg PO DAILY 11/07/22 03/13/23 History Furosemide [Lasix] 20 mg PO DAILY PRN 11/07/22 03/13/23 History Insulin Aspart [NovoLOG Flexpen] 7 units SQ AC-TID 11/07/22 03/13/23 History Omeprazole [PriLOSEC] 40 mg PO DAILY 11/07/22 03/13/23 History Pioglitazone [Actos] 30 mg PO DAILY 11/07/22 03/13/23 History Sucralfate [Carafate] 1 gm PO ACHS 11/07/22 03/13/23 History ARIPiprazole [Abilify] 30 mg PO DAILY 03/13/23 03/13/23 History DULoxetine HCL [Cymbalta] 60 mg PO BID 03/13/23 03/13/23 History Dulaglutide [Trulicity] 0.75 mg SQ Q7D 03/13/23 03/13/23 History Gabapentin 600 mg PO QID 03/13/23 03/13/23 History Insulin Glargine,Hum.rec.anlog 10 units SQ HS 03/13/23 03/13/23 History [Lantus Solostar Pen] Propranolol HCl [Inderal LA] 160 mg PO DAILY 03/13/23 03/13/23 History Topiramate [Topamax] 25 mg PO DAILY 03/13/23 03/13/23 History busPIRone HCL [Buspirone HCl] 15 mg PO DAILY PRN 03/13/23 03/13/23 History traMADol HCL 50 mg PO Q6H PRN 03/13/23 03/13/23 History Allergies Allergy/AdvReac Type Severity Reaction Status Date / Time No Known Allergies Allergy Verified 03/12/23 15:30 Exam Focused physical exam is performed. This is a middle aged female in no apparent distress. She has non-labored breathing and is in no apparent distress. Abdomen is non-tender and non-distended to palpation. Uterus feels enlarged, bulky, and anteverted on exam, but is mobile. No adnexal masses appreciated. Assessment and Plan Assessment: 52 year old with AUB secondary to suspected adenomyosis who presents for surgical management with Robotic Total Laparoscopic Hysterectomy, Bilateral Salpingectomy, and Cystoscopy. Plan: The risks of surgery were reviewed with the patient including risk of bleeding, infection, damage to surrounding structures including bladder/bowel/ureters, and post-operative VTE. The patient understands these risks and desires to proceed with surgery. All questions are answered.
[2023-03-18] MEDS ORDERED: LIDOCAINE 1% (10MG/ML) FOR IV START INTRADERMA PRN (06:12)
[2023-03-18] MEDS ORDERED: DEXAMETHASONE SOD PHOSPHATE 4 MG/ML 1 ML VIAL IV ONE (06:12)
[2023-03-18] MEDS ORDERED: ONDANSETRON 4 MG/2 ML VIAL IVP ONE (06:12)
[2023-03-18] MEDS ORDERED: MIDAZOLAM 2 MG/2 ML VIAL IV PRN (06:12)
[2023-03-18] MEDS: LACTATED RINGERS 1,000 ML IV SCH ×3 (06:17→23:27)
[2023-03-18 06:44] LABS: Glucose,Whole Blood 296 mg/dL (70-110)
[2023-03-18] MEDS ORDERED: HYDROmorphone 0.5 MG/0.5 ML SYRINGE IVP PRN (07:00)
[2023-03-18] MEDS ORDERED: fentaNYL (PF) 50 MCG/ML 2 ML AMP IVP ONE (07:03)
[2023-03-18] MEDS ORDERED: MIDAZOLAM 2 MG/2 ML VIAL IVP ONE (07:03)
[2023-03-18] MEDS ORDERED: INSULIN ASPART (NovoLOG) 100 UNIT/ML VIAL SQ ONE (07:20)
[2023-03-18] MEDS ORDERED: SUCCINYLCHOLINE CHLORIDE 200 MG/10 ML VIAL IV ONE (07:26)
[2023-03-18] MEDS ORDERED: GLYCOPYRROLATE 0.2 MG/ML 2 ML VIAL ONE (07:26)
[2023-03-18] MEDS ORDERED: PROPOFOL 10 MG/ML 20 ML VIAL IV ONE (07:26)
[2023-03-18] MEDS ORDERED: ROCURONIUM 10 MG/ML (5 ML VIAL) IV ONE (07:26)
[2023-03-18] MEDS ORDERED: MIDAZOLAM 2 MG/2 ML VIAL ONE (07:26)
[2023-03-18] MEDS ORDERED: NEOSTIGMINE 1 MG/ML 10 ML VIAL ONE (07:26)
[2023-03-18] MEDS ORDERED: LIDOCAINE 2% INJ 20 MG/ML (2 ML VIAL) ONE (07:26)
[2023-03-18] MEDS ORDERED: HYDROmorphone (PF) 1 MG/ML ONE (07:26)
[2023-03-18] MEDS ORDERED: SODIUM CHLORIDE 0.9% (PF) 10 ML VIAL ONE (07:26)
[2023-03-18] MEDS ORDERED: fentaNYL (PF) 50 MCG/ML 2 ML AMP ONE (07:26)
[2023-03-18] MEDS ORDERED: ROPIVACAINE 5 MG/ML 30 ML VIAL ONE (07:26)
[2023-03-18] MEDS ORDERED: metroNIDAZOLE-NS PMX 500 MG in SALINE 1 100ML.BAG IVPB STA (08:02)
[2023-03-18] MEDS ORDERED: BUPIVACAINE (PF) 0.25% 30 ML VIAL SQ ONE ×2 (09:18)
[2023-03-18] MEDS ORDERED: ONDANSETRON 4 MG/2 ML VIAL IVP PRN (09:24)
[2023-03-18] MEDS ORDERED: METOCLOPRAMIDE 5 MG/ML 2 ML VIAL IVP PRN (09:24)
[2023-03-18] MEDS ORDERED: diphenhydrAMINE 50 MG/ML 1 ML VIAL IVP PRN (09:24)
[2023-03-18] MEDS ORDERED: SIMETHICONE 80 MG CHEWABLE PO PRN (09:24)
[2023-03-18] MEDS ORDERED: DEXTROSE 50% SYRINGE 50 ML IVP PRN ×2 (09:35)
--- NOTE | 2023-03-18 09:49 | P.OP ---
Date of Procedure: 03/18/23 Preoperative Diagnosis: 1. Abnormal Uterine Bleeding 2. Suspected Adenomyosis 3. Uterine fibroids Postoperative Diagnosis: 1. Abnormal Uterine Bleeding 2. Suspected Adenomyosis 3. Uterine fibroids 4. 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 Procedure(s) Performed: Robotic Total Laparoscopic Hysterectomy, Bilateral Salpingectomy, Cystoscopy, Lysis of Adhesions (30 minutes) Implants: None Anesthesia: WILSONA Surgeon: Eunice Freeman Environmental Studies Program Director #1: Jose Zavala Estimated Blood Loss (ml): 140 IV fluids (ml): 400 Urine output (ml): 100 (clear yellow) Pathology: other (Uterus, cervix, and portions of bilateral fallopian tubes) Condition: stable Disposition: floor Indications for Procedure: 52 year old with AUB secondary to suspected adenomyosis who presents for surgical management with Robotic Total Laparoscopic Hysterectomy, Bilateral Salpingectomy, and Cystoscopy. The risks of surgery were reviewed with the patient including risk of bleeding, infection, damage to surrounding structures including bladder/bowel/ureters, and post-operative VTE. The patient understands these risks and desires to proceed with surgery. All questions are answered. Operative Findings: Severe adhesive disease in the pelvis with omental adhesions to the anterior abdominal wall and thick adhesions between the anterior uterus and the anterior abdominal wall. Uterus sounded to 12 centimeters. Bulky, heterogenous, fibroid uterus noted. Evidence of prior tubal ligation noted, remaining portions of fallopian tubes were removed bilaterally. Normal appearing ovaries bilaterally. Otherwise, unremakrable abdomen. On cystoscopy, there was no evidence of trauma to the bladder from surgery, no foreign bodies seen in the bladder, and bilateral ureteral jets were noted promptly. Description of Procedure: Prior to the beginning of the procedure, the team paused to verify the patients identity, the procedure to be performed (in accordance with the consent,) and the correct side/site. The patient was positioned appropriately. All relevant images and results were properly labeled and displayed. We addressed antibiotic prophylaxis and fluids for irrigation as applicable to this patient. Any safety precautions were addressed. The patient was taken to the operating room where general anesthesia was induced without difficulty. She was then positioned in the dorsal lithotomy position in [facility]. Positioning included placing her arms at her sides. After the patient was placed in what was felt to be a neurologically safe position, deep Trendelenburg position was tested prior to the operative procedure, to ensure that she would not move on the operating table. The patient was then prepped and draped in the normal sterile fashion for a combined abdominovaginal surgery. A Feliciano catheter was placed in the bladder for continuous drainage. Uterus was sounded to 12 cm. V-Care manipulator was placed in the uterus for manipulation. Attention was then placed to the abdomen. The normal length Veress needle was introduced into the abdominal cavity while tenting the abdominal wall. Low pressure was noted confirming appropriate placement. The abdomen was then insufflated to 15mmHg for the remainder of the case. The Veress needle was removed, and an 8 mm port was placed at the umbilical site under direct laparscopic visualization and there was no evidence of injury from the trocar placement. Visualization of the intraabdominal cavity showed pelvic anatomy with severe adhesive disease as noted in the findings. The port sites for the remainder of the case were then measured out and placed under direct visualization. On the left side, one 8 mm robotic assist port and one 10 mm assist port were placed. On the right side, one 8 mm robotic port was placed. The Bloodhoundi robot was then brought to the operative field in a lateral docking style to the right of the patient and the robot was docked to the ports. All robotic instruments were brought into the pelvis under direct visualization with monopolar scissors in arm #3 and vessel sealer in arm #1. The omental adhesions were cauterized and cut away using the monopolar scissors. Then, attention was turned to the thick uterine adhesions to the abdominal wall which were also cauterized and cut away using the monopolar scissors. Bilateral ureters were then visualized, The right uteroovarian ligement was cauterized and cut. The portions of the right fallopian tube were cauterized, cut, and removed through the assist port. The right round ligament was cauterized and cut. Broad ligament was opened and bladder flap created. This was repeated on the left side with a portion of the left tube being cauterized, cut, and removed through the assist port The peritoneum of the bilateral broad ligaments was then taken down and monopolar cautery used to skeletonize the uterine arteries bilaterally. During the course of this dissection, the anterior leaf of the broad ligament was also taken down over the anterior aspect of the uterus and cervix to create a bladder flap. The bladder was then dissected off the cervix and upper vagina with the monopolar scissors and gentle blunt dissection. The bilateral uterine arteries were then cauterized and divided at the level of the internal cervical os. The monopolar cautery was used to incise the vaginal cuff. The uterus, along with the cervix was removed vaginally. Cuff was closed in with 0-Stratifix sutures. The pelvis was copiously suction irrigated. Excellent hemostasis was noted at this time. A 70 degree cystoscopy was performed which confirmed no suture placement within the bladder, no trauma to the bladder. Good efflux was noted from both ureteric orifices. The robot was undocked from the trocars and brought out of the operative field. The remainder of the ports were removed, and the gas was allowed to escape. All skin incisions were closed with 4-0 Monocryl and dermabond. Hemostasis was noted to be excellent throughout, and final sponge, instrument, and needle count was noted to be correct. The patient was moved back to the preoperative holding area in stable condition having tolerated the procedure well.
[2023-03-18 09:52] LABS: Glucose,Whole Blood 283 mg/dL (70-110)
--- NOTE | 2023-03-18 10:41 | P.ANPRN ---
Procedure Note - Anesthesia - Nerve Block Performed Bilateral Erector Spinae Time Out Performed: Yes (07:) Date of Procedure: 03/18/23 Procedure Start Time: Procedure Stop Time: Location of Patient: PreOp Indication: Acute Post-Operative Pain, Requested by Surgeon (Dr Freeman) Sedation Type: Sedate with meaningful contact maintained Preparation: Sterile Prep Position: Prone Catheter: None Needle Types: Pajunk Needle Gauge: 21 Ultrasound used to visualize needle placement: Yes Ultrasound used to observe medication spread: Yes Injectate: 0.5% Ropivacaine (see comment for volume) (15cc +10cc PF Normal saline each side) Blood Aspirated: No Pain Paresthesia on Injection Noted: No Resistance on Injection: Normal Image Stored and Saved: Yes Events: Uneventful and Well Tolerated
[2023-03-18] MEDS: GABAPENTIN 300 MG CAP PO SCH ×3 (11:00→21:59)
[2023-03-18] MEDS: metFORMIN 500 MG TAB PO SCH ×2 (11:00→16:50)
[2023-03-18 11:56] LABS: Glucose,Whole Blood 267 mg/dL (70-110)
[2023-03-18] MEDS: ACETAMINOPHEN TAB 325 MG TAB PO SCH ×3 (12:28→23:36)
[2023-03-18] MEDS: INSULIN ASPART (NovoLOG) 100 UNIT/ML VIAL SQ SCH ×2 (12:29→16:51)
[2023-03-18] MEDS: KETOROLAC 15 MG/ML 1 ML VIAL IVP SCH ×3 (15:51→23:37)
[2023-03-18 16:51] LABS: Glucose,Whole Blood 198 mg/dL (70-110)
[2023-03-18] MEDS: INSULIN DETEMIR (LEVEMIR) 100 UNIT/ML SYR SQ SCH (21:57)
[2023-03-18] MEDS: PROPRANOLOL 40 MG TAB PO SCH (21:57)
[2023-03-18] MEDS: DULoxetine HCL 60 MG CAPSULE.DR PO SCH (21:59)
[2023-03-18] MEDS: SENNOSIDES-DOCUSATE SODIUM 1 EACH TAB PO SCH (21:59)
[2023-03-18 22:06] LABS: Glucose,Whole Blood 280 mg/dL (70-110)
[2023-03-18 22:27] LABS: Basophils % (A) 0 %; Eosinophils # (A) 0.1 k/uL (0-0.7); Eosinophils % (A) 1 %; HCT 37.6 % (34.0-46.0); HGB 11.9 gm/dL (11.4-16.0); Hypochromasia Slight; Lymphocytes # (A) 0.8 k/uL (1.0-4.8); Lymphocytes % (A) 8 %; MCH 29.1 pg (25.0-35.0); MCHC 31.6 g/dL (31.0-37.0); MCV 92.1 fL (80.0-100.0); Mean Platelet Volume 9.4; Monocytes # (A) 0.3 k/uL (0-1.0); Monocytes % (A) 3 %; Neutrophils # (A) 8.7 k/uL (1.3-7.7); Neutrophils % (A) 87 %; Platelet Count 186 k/uL (150-450); RBC 4.08 m/uL (3.80-5.40); RDW 14.7 % (11.5-15.5)
[2023-03-18 22:35] LABS: ALT 21 U/L (4-34); AST 24 U/L (14-36); African American GFR (CKD) >90 (>60 ml/min/1.73 sqM); Albumin 3.5 g/dL (3.5-5.0); Alkaline Phosphatase 91 U/L (38-126); Anion Gap 9 mmol/L; Blood Urea Nitrogen 16 mg/dL (7-17); Calcium 9.1 mg/dL (8.4-10.2); Carbon Dioxide 25 mmol/L (22-30); Chloride 97 mmol/L (98-107); Glucose 297 mg/dL (74-99); Non-African American GFR(CKD) >90 (>60 ml/min/1.73 sqM); Potassium 4.3 mmol/L (3.5-5.1); Sodium 131 mmol/L (137-145); Total Bilirubin 0.5 mg/dL (0.2-1.3); Total Protein 6.8 g/dL (6.3-8.2)
[2023-03-18] MEDS ORDERED: ENOXAPARIN 40 MG/0.4 ML SYRINGE SQ STA (22:48)
[2023-03-18] MEDS ORDERED: SODIUM CHLORIDE 0.9% 500 ML 500 ML IV ONE (23:22)
--- NOTE | 2023-03-18 23:26 | CT ---
EXAM: CT Angiography Chest With Intravenous Contrast CLINICAL HISTORY: ITS.REASON CT Reason: SOB, Increased D Dmier TECHNIQUE: Axial computed tomographic angiography images of the chest with intravenous contrast. CTDI is 17.97 mGy and DLP is 417.8 mGy-cm. This CT exam was performed using one or more of the following dose reduction techniques: automated exposure control, adjustment of the mA and/or kV according to patient size, and/or use of iterative reconstruction technique. MIP reconstructed images were created and reviewed. COMPARISON: No relevant prior studies available. FINDINGS: Pulmonary arteries: Unremarkable. No pulmonary embolism. Aorta: No acute findings. No thoracic aortic aneurysm. Lungs: Mild dependent atelectasis. No mass. Pleural space: Unremarkable. No significant effusion. No pneumothorax. Heart: Unremarkable. No cardiomegaly. No significant pericardial effusion. No evidence of RV dysfunction. Bones/joints: No acute fracture. No dislocation. Soft tissues: Unremarkable. Lymph nodes: Unremarkable. No enlarged lymph nodes. Liver: Hepatic steatosis. IMPRESSION: No acute findings in the visualized arteries of the chest.
--- NOTE | 2023-03-19 00:51 | CONS ---
CONSULTATION The patient is being admitted for diabetes, status post gynecologic surgical repair. HOSPITAL COURSE: The patient developed chest pain tonight. She has positive D-dimer with negative CT of the chest. Negative troponin. EKG is pending. Cardiology has been consulted. She is negative for PE of the chest. Home medications have been ordered. Stat Lovenox 40 IV daily for blood thinner, Cymbalta 60 b.i.d., Levemir 10 units at night, DuoNeb updraft q.i.d. had just been ordered. 6 units of regular insulin with meals. White count is 10, hemoglobin is 11.9, sodium 131. Troponins high at 3.4. We are going to give a boluses of normal saline tonight. She has been having postop fever. We will get blood cultures. Get consult with Dr. Chan. MEDICINES: Reviewed. REVIEW OF SYSTEMS: A 14-point review of system reviewed as mentioned. PHYSICAL EXAMINATION: VITAL SIGNS: Reviewed. T 100.9 to 101.9 fever, pulse is 60s to 70s, respiratory rate 16 to 18, blood pressure 120s/60s; O2 is 99% on room air. CARDIOVASCULAR: S1, S2. PLAN: Blood cultures, EKG, CTA of the chest has been reviewed. Please see further orders. Continue diabetic control. Septic workup. CT of the chest was negative as mentioned above. Prognosis guarded. MMODL / IJN: [id number] /
[2023-03-19] MEDS ORDERED: SODIUM CHLORIDE 0.9% 500 ML 500 ML IV ONE ×3 (02:07→06:32)
[2023-03-19 03:07] LABS: Squamous Epithelial Cell,Urine 215 /hpf (0-4)
[2023-03-19 03:15] LABS: Appearance,Urine Bloody (Clear)
[2023-03-19 03:16] LABS: Color,Urine Dark Red; RBC,Urine >182 /hpf (0-5); WBC,Urine >182 /hpf (0-5)
[2023-03-19 04:46] LABS: Basophils % (A) 0 %; Eosinophils % (A) 0 %; HGB 10.2 gm/dL (11.4-16.0); Hypochromasia Moderate; Lymphocytes # (A) 0.7 k/uL (1.0-4.8); Lymphocytes % (A) 11 %; MCH 29.6 pg (25.0-35.0); MCHC 31.7 g/dL (31.0-37.0); MCV 93.2 fL (80.0-100.0); Monocytes # (A) 0.2 k/uL (0-1.0); Monocytes % (A) 3 %; Neutrophils # (A) 5.5 k/uL (1.3-7.7); Neutrophils % (A) 85 %; Platelet Count 176 k/uL (150-450); RBC 3.43 m/uL (3.80-5.40); RDW 14.9 % (11.5-15.5); WBC 6.4 k/uL (3.8-10.6)
[2023-03-19] MEDS: KETOROLAC 15 MG/ML 1 ML VIAL IVP SCH ×3 (05:44→16:57)
[2023-03-19] MEDS: ACETAMINOPHEN TAB 325 MG TAB PO SCH ×3 (05:44→16:57)
[2023-03-19] MEDS: LACTATED RINGERS 1,000 ML IV SCH ×3 (06:01→16:58)
[2023-03-19] MEDS: ENOXAPARIN 40 MG/0.4 ML SYRINGE SQ SCH ×2 (06:31→08:29)
[2023-03-19] MEDS ORDERED: oxyCODONE-APAP 5-325MG 1 EACH TAB PO PRN (06:32)
[2023-03-19 07:56] LABS: Glucose,Whole Blood 382 mg/dL (70-110)
[2023-03-19] MEDS: IPRATROPIUM-ALBUTEROL 3 ML NEB INHALATION SCH ×4 (07:59→21:21)
[2023-03-19] MEDS: INSULIN ASPART (NovoLOG) 100 UNIT/ML VIAL SQ SCH ×6 (08:18→21:49)
[2023-03-19] MEDS: PANTOPRAZOLE 40 MG TABLET PO SCH (08:22)
[2023-03-19] MEDS: DULoxetine HCL 60 MG CAPSULE.DR PO SCH ×2 (08:28→21:48)
[2023-03-19] MEDS: SENNOSIDES-DOCUSATE SODIUM 1 EACH TAB PO SCH ×2 (08:28→21:47)
[2023-03-19] MEDS: GABAPENTIN 300 MG CAP PO SCH ×3 (08:29→21:47)
[2023-03-19] MEDS: PROPRANOLOL 40 MG TAB PO SCH ×2 (10:17→21:48)
[2023-03-19 11:14] LABS: Glucose,Whole Blood 451 mg/dL (70-110)
[2023-03-19] MEDS ORDERED: DEXTROSE 50% SYRINGE 50 ML IVP PRN ×2 (11:21)
--- NOTE | 2023-03-19 13:00 | CA ---
Transthoracic Echo Report Name: Vria Tay Age: 52 Gender: F : 1970 Exam Date: 03/19/2023 08:51 Exam Location: [facility] Ht (in): 66 Wt (lb): 180 Ordering Physician: Denny Suárez MD ([id number]) Attending/Referring Phys: Optimization Engineer Audra Sandoval RDCS Procedure CPT: Indications: New Onset Chest Pain, Elevated D Dimer Cardiac Hx: Technical Quality: Contrast 1: Total Dose (mL): Contrast 2: Total Dose (mL): MEASUREMENTS (Male / Female) Normal Values 2D ECHO LV Diastolic Diameter PLAX 3.5 cm 4.2 - 5.9 / 3.9 - 5.3 cm LV Systolic Diameter PLAX 2.2 cm IVS Diastolic Thickness 1.2 cm 0.6 - 1.0 / 0.6 - 0.9 cm LVPW Diastolic Thickness 1.3 cm 0.6 - 1.0 / 0.6 - 0.9 cm LV Relative Wall Thickness 0.7 RV Internal Dim ED PLAX 2.8 cm LA Volume 60.2 cm??? 18 - 58 / 22 - 52 cm??? M-MODE Aortic Root Diameter MM 2.6 cm LA Systolic Diameter MM 3.5 cm LA Ao Ratio MM 1.3 AV Cusp Separation MM 1.8 cm DOPPLER AV Peak Velocity 130.1 cm/s AV Peak Gradient 6.8 mmHg AV Mean Velocity 93.8 cm/s AV Mean Gradient 3.8 mmHg AV Velocity Time Integral 26.1 cm LVOT Peak Velocity 88.0 cm/s LVOT Peak Gradient 3.1 mmHg LVOT Velocity Time Integral 19.7 cm MV Area PHT 3.3 cm??? Mitral E Point Velocity 98.5 cm/s Mitral A Point Velocity 61.3 cm/s Mitral E to A Ratio 1.6 MV Deceleration Time 228.4 ms MV E' Velocity 9.3 cm/s Mitral E to MV E' Ratio 10.6 TR Peak Velocity 237.9 cm/s TR Peak Gradient 22.6 mmHg Right Ventricular Systolic Press 27.6 mmHg FINDINGS Left Ventricle Mildly increased left ventricular wall thickness. Normal left ventricular systolic function with no obvious regional wall motion abnormalities. Left ventricular ejection fraction is estimated at 60-65 %. Right Ventricle Normal right ventricular size and function. Right ventricular systolic pressure within normal limits. Right Atrium Normal right atrial size. Left Atrium Normal LA size Mitral Valve Structurally normal mitral valve. No mitral stenosis. Trace mitral regurgitation. Aortic Valve Trileaflet aortic valve. No aortic valve stenosis or regurgitation. Tricuspid Valve Structurally normal tricuspid valve. Mild tricuspid regurgitation. Pulmonic Valve Trace pulmonic regurgitation. Pericardium No pericardial effusion. Aorta Normal size aortic root and proximal ascending aorta. CONCLUSIONS Normal LV size and systolic function. Estimated LVEF 60-65%. Hyperdynamic LV Mild concentric LVH No significant diastolic dysfunction No obvious regional wall motion abnormality No significant valvular dysfunction No significant chamber size abnormality No significant difference when compared to prior echo Previewed by: Dr Can Shahid (Electronically Signed) Final Date: 19 March 2023 12:59
[2023-03-19] MEDS: PIPERACILLIN-TAZOBACTAM 3.375 GM in SODIUM CHLORIDE 0.9% 100 ML IVPB SCH (13:46)
--- NOTE | 2023-03-19 14:17 | P.PN ---
Subjective Progress Note Date: 03/19/23 Principal diagnosis: POD#1 s/p CARLOS ALBERTO OVALLES, Cystoscopy, Lysis of Adhesions The patient had a fever overnight with Tmax of 101.9. The A-team was called at this time and the patient began complaining of chest pain. It was thought the chest pain may be due to the abdominal distension following insufflation of the abdomen with CO2, however, EKG, D-Dimer, CBC, and CMP were obtained. These were essentially all negative except for an elevate D-dimer of 1.1. Given the patient's history of PE and immobility after surgery, the decision was made to get CTAngio of the chest. This was negative for PE but did not bilateral atelectasis. Lactic acid was found to be elevated and the patient was given fluid boluses overnight. Dr. Rudolph the patient's primary care doctor consulted Cardiology for an ECHO which was normal and similar to the patient's prior ECHO. Infectious Disease was also consulted for post-operative fever. Today, the patient's blood sugars have been poorly controlled ranging from 300s- 400s. Insulin sliding scale was started. The patient feels fine this morning on exam. She denies passing gas and does still have some discomfort from abdominal distension after insufflation. She denies shortness of breath or chest pain. She has been eating and drinking without difficulty. She has light vaginal bleeding after passing one clot after surgery. She has no pain or swelling in the legs. She is voiding without difficulty. She has walked to and from the bathroom. She has been using her incentive spirometer. Objective - Vital Signs Vital signs: Vital Signs Temp 99.1 F 03/19/23 07:32 Pulse 84 03/19/23 12:45 Resp 17 03/19/23 07:32 BP 151/91 03/19/23 07:32 Pulse Ox 99 03/19/23 07:32 FiO2 Intake & Output 03/18/23 03/19/23 03/19/23 18:59 06:59 18:59 Intake Total 800 Output Total 1190 Balance -390 Weight 81.7 kg Intake: IV 800 Output: Urine 1050 Uretheral (Feliciano) 500 Estimated Blood Loss 140 Other: Voiding Method Toilet # Voids 2 - Gastrointestinal Gastrointestinal Comment(s): Incisions clean, dry, and intact General gastrointestinal: Present: distended (mild distension after insulffation during surgery), soft - Psychiatric Psychiatric: Present: A&O x's 3, appropriate affect - Labs CBC & Chem 7: 03/19/23 04:33 03/18/23 22:17 Labs: Abnormal Lab Results - Last 24 Hours (Table) 03/18/23 03/18/23 03/18/23 Range/Units 16:48 21:55 22:17 RBC (3.80-5.40) m/uL Hgb (11.4-16.0) gm/dL Hct (34.0-46.0) % Neutrophils # 8.7 H (1.3-7.7) k/uL Lymphocytes # 0.8 L (1.0-4.8) k/uL D-Dimer (<0.60) mg/L FEU Sodium (137-145) mmol/L Chloride (98-107) mmol/L Glucose (74-99) mg/dL POC Glucose (mg/dL) 198 H 280 H (70-110) mg/dL Hemoglobin A1c (<=6.0) % Plasma Lactic Acid Juliocesar (0.7-2.0) mmol/L Procalcitonin (0.02-0.09) ng/mL Urine Appearance (Clear) Urine RBC (0-5) /hpf Urine WBC (0-5) /hpf Ur Squamous Epith Cells (0-4) /hpf 03/18/23 03/18/23 03/18/23 Range/Units 22:17 22:17 22:45 RBC (3.80-5.40) m/uL Hgb (11.4-16.0) gm/dL Hct (34.0-46.0) % Neutrophils # (1.3-7.7) k/uL Lymphocytes # (1.0-4.8) k/uL D-Dimer 1.16 H (<0.60) mg/L FEU Sodium 131 L (137-145) mmol/L Chloride 97 L (98-107) mmol/L Glucose 297 H (74-99) mg/dL POC Glucose (mg/dL) (70-110) mg/dL Hemoglobin A1c (<=6.0) % Plasma Lactic Acid Juliocesar 3.4 H* (0.7-2.0) mmol/L Procalcitonin (0.02-0.09) ng/mL Urine Appearance (Clear) Urine RBC (0-5) /hpf Urine WBC (0-5) /hpf Ur Squamous Epith Cells (0-4) /hpf 03/19/23 03/19/23 03/19/23 Range/Units 01:29 01:29 02:30 RBC (3.80-5.40) m/uL Hgb (11.4-16.0) gm/dL Hct (34.0-46.0) % Neutrophils # (1.3-7.7) k/uL Lymphocytes # (1.0-4.8) k/uL D-Dimer (<0.60) mg/L FEU Sodium (137-145) mmol/L Chloride (98-107) mmol/L Glucose (74-99) mg/dL POC Glucose (mg/dL) (70-110) mg/dL Hemoglobin A1c (<=6.0) % Plasma Lactic Acid Juliocesar 3.5 H* (0.7-2.0) mmol/L Procalcitonin 0.26 H (0.02-0.09) ng/mL Urine Appearance Bloody H (Clear) Urine RBC >182 H (0-5) /hpf Urine WBC >182 H (0-5) /hpf Ur Squamous Epith Cells 215 H (0-4) /hpf 03/19/23 03/19/23 03/19/23 Range/Units 04:33 04:33 04:33 RBC 3.43 L (3.80-5.40) m/uL Hgb 10.2 L (11.4-16.0) gm/dL Hct 32.0 L (34.0-46.0) % Neutrophils # (1.3-7.7) k/uL Lymphocytes # 0.7 L (1.0-4.8) k/uL D-Dimer (<0.60) mg/L FEU Sodium (137-145) mmol/L Chloride (98-107) mmol/L Glucose (74-99) mg/dL POC Glucose (mg/dL) (70-110) mg/dL Hemoglobin A1c 10.2 H (<=6.0) % Plasma Lactic Acid Juliocesar 3.2 H* (0.7-2.0) mmol/L Procalcitonin (0.02-0.09) ng/mL Urine Appearance (Clear) Urine RBC (0-5) /hpf Urine WBC (0-5) /hpf Ur Squamous Epith Cells (0-4) /hpf 03/19/23 03/19/23 03/19/23 Range/Units 07:55 08:42 11:13 RBC (3.80-5.40) m/uL Hgb (11.4-16.0) gm/dL Hct (34.0-46.0) % Neutrophils # (1.3-7.7) k/uL Lymphocytes # (1.0-4.8) k/uL D-Dimer (<0.60) mg/L FEU Sodium (137-145) mmol/L Chloride (98-107) mmol/L Glucose (74-99) mg/dL POC Glucose (mg/dL) 382 H 451 H (70-110) mg/dL Hemoglobin A1c (<=6.0) % Plasma Lactic Acid Juliocesar 2.1 H* (0.7-2.0) mmol/L Procalcitonin (0.02-0.09) ng/mL Urine Appearance (Clear) Urine RBC (0-5) /hpf Urine WBC (0-5) /hpf Ur Squamous Epith Cells (0-4) /hpf 03/19/23 Range/Units 12:04 RBC (3.80-5.40) m/uL Hgb (11.4-16.0) gm/dL Hct (34.0-46.0) % Neutrophils # (1.3-7.7) k/uL Lymphocytes # (1.0-4.8) k/uL D-Dimer (<0.60) mg/L FEU Sodium (137-145) mmol/L Chloride (98-107) mmol/L Glucose (74-99) mg/dL POC Glucose (mg/dL) (70-110) mg/dL Hemoglobin A1c (<=6.0) % Plasma Lactic Acid Juliocesar 2.2 H* (0.7-2.0) mmol/L Procalcitonin (0.02-0.09) ng/mL Urine Appearance (Clear) Urine RBC (0-5) /hpf Urine WBC (0-5) /hpf Ur Squamous Epith Cells (0-4) /hpf Assessment and Plan Assessment: 52 year old with AUB secondary to suspected adenomyosis POD#1 s/p Robotic Total Laparoscopic Hysterectomy, Bilateral Salpingectomy, and Cystoscopy. Plan: 1. Postoperative. Patient meeting postoperative milestones appropriately, continue to monitor. Encourage ambulation and incentive spirometer use. 2. Post-operative fever, Tmax 101.9 on 03/18 PM. No leukocytosis, vitals otherwise normal. Feel this could be due to atelectasis seen on CT. LA also elevated to max of 3.5. ID consulted. 3. Poorly controlled type 2 diabetes mellitus. Medicine following. Insulin ordered with sliding scale. BS this afternoon in 400s. Ideally, BS <200 for postoperative healing. 4. Chest pain (resolved). s/p Cardiology consult. ECHO unremarkable and similar to prior study. 5. DVT ppx. Lovenox 40mg SQ qDay Dispo: Anticipate discharge home tomorrow if patient continues to improve. Time with Patient: Less than 30 (20 minutes)
--- NOTE | 2023-03-19 14:52 | P.CRDCN ---
History of Present Illness History of present illness: HISTORY OF PRESENT ILLNESS: This is a 52-year-old female with a past medical history significant for hypertension, hyperlipidemia, diabetes, pulmonary embolism, and former nicotine dependence. Patient follows in the office with Dr. Guevara. We have been asked to see the patient in consultation for chest pain. Patient is status post robotic total laparoscopic hysterectomy, bilateral salpingectomy, cystoscopy, and lysis of adhesions. Postop day #1. Patient examined at the bedside. Patient's family is at the bedside and translating during evaluation. Patient currently has been having chest pain on and off for the past year. Yesterday patient developed pain in the middle of her chest that felt like a cramping sensation. She states that she felt like she was unable to get a full breath. She also reports feeling dizzy yesterday which has since resolved. She reports her chest pain was reproducible upon chest wall palpation. At the time of examination, she denies chest pain or pressure. Patient's vital signs are stable. * EKG reveals sinus mechanism with no signs of acute ischemia * Chest CTA: No acute findings and visualized arteries of the chest * Laboratory data: WBC 6.4. Hemoglobin 10.2. Platelet count 176. D-dimer 1.16. Sodium 131. Potassium 4.3. BUN 16. Creatinine 0.72. Troponin negative 2. * Current home cardiac medications include valsartan 160 mg daily, propanolol 160 mg daily, Lasix 20 mg daily as needed * Most recent echocardiogram obtained in October 2022 revealed normal EF, mild MR, mild TR * Cardiac catheterization history: December 2021 revealing normal coronary arteries REVIEW OF SYSTEMS: At the time of my exam: CONSTITUTIONAL: Denies fever or chills. HEENT: Denies blurred vision, vision changes, or eye pain. Denies hemoptysis CARDIOVASCULAR: Denies chest pain. Denies orthopnea. Denies PND. Denies palpitations RESPIRATORY: Denies shortness of breath. GASTROINTESTINAL: Denies abdominal pain. Denies nausea or vomiting. HEMATOLOGIC: Denies bleeding disorders. GENITOURINARY: Denies any blood in urine. SKIN: Denies pruitis. Denies rash. PHYSICAL EXAM: VITAL SIGNS: Reviewed. GENERAL: Well-developed in no acute distress. HEENT: Head is normocephalic. Pupils are equal, round. Sclerae anicteric. Mucous membranes of the mouth are moist. Neck supple. No JVD or thyromegaly LUNGS: Respirations even and unlabored. Lungs essentially clear to auscultation bilaterally. HEART: Regular rate and rhythm. S1 and S2 heard. ABDOMEN: Soft. Nondistended. Nontender. EXTREMITIES: Normal range of motion. No clubbing or cyanosis. Peripheral pulses intact. No lower extremity edema NEUROLOGIC: Awake and alert. Oriented x 3. ASSESSMENT: Vaginal bleeding Status post robotic total laparoscopic hysterectomy, bilateral salpingectomy, cystoscopy, and lysis of adhesions Chest pain, reproducible, EKG nonischemic and troponins negative 2 Normal coronary arteries, per cardiac catheterization December 2021 Hypertension Hyperlipidemia Diabetes History of pulmonary embolism; taken off of anticoagulation secondary to heavy vaginal bleeding Former nicotine dependence, patient quit smoking 4 years ago PLAN: An acute coronary event has been ruled out Resume home cardiac medications Add atorvastatin 20 mg at night Obtain 2-D echo to assess cardiac structure and function Patient to follow up post discharge with Dr. Guevara Nurse practitioner note has been reviewed by physician. Signing provider agrees with the documented findings, assessment, and plan of care. Dr. Shahid's Addendum Atypical chest pain , reproducible on palpation in left upper chest. Vaginal bleeding status post hysterectomy Dyslipidemia Hypertension Diabetes History of pulmonary embolism not taking antipronation due to heavy menstrual bleeding. Former smoker We will continue her aspirin, start moderate intensity statin I really do not echocardiogram which did not show any wall motion abnormality and she had a preserved left ventricular systolic function. She did not have any significant valvular heart disease. I have personally seen and examined the patient. I have personally performed all the components of medical care documented above including formulating the assessment and plan. I have personally reviewed the relevant labs, imaging and other diagnostics. I have discussed this in detail with my HORSE BREAKER who has helped me with this documentation. I have carefully reviewed this document before finalizing. Total time spent reviewing medical chart, examining patient, counselling patient and documentation 45 mins Thank you for letting cardiology team participating in this patient's care. Dr. Can Shahid MD Cardiovascular Disease Past Medical History Past Medical History: Diabetes Mellitus, GERD/Reflux, Hyperlipidemia, Hypertension, Pulmonary Embolus (PE) Additional Past Medical History / Comment(s): History of headaches. Insulin- requiring type 2 diabetes. Pulmonary embolus in 2020. sees Dr Guevara for elevated heart rate, neuropathy pain in extremities History of Any Multi-Drug Resistant Organisms: None Reported Past Surgical History: Section, Cholecystectomy, Orthopedic Surgery Additional Past Surgical History / Comment(s): Section X2. Left shoulder surgery. Past Anesthesia/Blood Transfusion Reactions: No Reported Reaction Past Psychological History: Anxiety, Depression Smoking Status: Former smoker Past Alcohol Use History: None Reported Additional Past Alcohol Use History / Comment(s): Quit smoking around 2017. only smoked for 2-3 years Past Drug Use History: None Reported - Past Family History Mother Family Medical History: Cancer, Diabetes Mellitus Additional Family Medical History / Comment(s): Breast cancer. A maternal aunt had breast cancer. Father Family Medical History: Cancer, Diabetes Mellitus, Deep Vein Thrombosis (DVT), Hypertension Additional Family Medical History / Comment(s): Colon cancer. Brother(s) Family Medical History: Deep Vein Thrombosis (DVT) Medications and Allergies Home Medications Medication Instructions Recorded Confirmed Type metFORMIN HCL [Glucophage] 1,000 mg PO BID 08/22/20 03/18/23 History Amitriptyline HCl 50 mg PO HS 06/01/21 03/18/23 History Ferrous Sulfate [Iron] 325 mg PO DAILY 06/01/21 03/18/23 History Valsartan 160 mg PO DAILY 10/08/22 03/18/23 History methocarbamoL [Methocarbamol] 1,000 mg PO TID PRN 10/08/22 03/18/23 History Empagliflozin [Jardiance] 10 mg PO DAILY 11/07/22 03/18/23 History Furosemide [Lasix] 20 mg PO DAILY PRN 11/07/22 03/18/23 History Insulin Aspart [NovoLOG Flexpen] 7 units SQ AC-TID 11/07/22 03/18/23 History Omeprazole [PriLOSEC] 40 mg PO DAILY 11/07/22 03/18/23 History Pioglitazone [Actos] 30 mg PO DAILY 11/07/22 03/18/23 History Sucralfate [Carafate] 1 gm PO ACHS 11/07/22 03/18/23 History ARIPiprazole [Abilify] 30 mg PO DAILY 03/13/23 03/18/23 History DULoxetine HCL [Cymbalta] 60 mg PO BID 03/13/23 03/18/23 History Dulaglutide [Trulicity] 0.75 mg SQ Q7D 03/13/23 03/18/23 History Gabapentin 600 mg PO QID 03/13/23 03/18/23 History Insulin Glargine,Hum.rec.anlog 10 units SQ HS 03/13/23 03/18/23 History [Lantus Solostar Pen] Propranolol HCl [Inderal LA] 160 mg PO DAILY 03/13/23 03/18/23 History Topiramate [Topamax] 25 mg PO DAILY 03/13/23 03/18/23 History busPIRone HCL [Buspirone HCl] 15 mg PO DAILY PRN 03/13/23 03/18/23 History traMADol HCL 50 mg PO Q6H PRN 03/13/23 03/18/23 History Allergies Allergy/AdvReac Type Severity Reaction Status Date / Time No Known Allergies Allergy Verified 03/18/23 06:24 Physical Exam Vitals: Vital Signs Temp Pulse Pulse Pulse Resp BP BP 03/19/23 08:10 88 03/19/23 08:00 84 03/19/23 07:32 99.1 F 86 17 151/91 03/19/23 02:00 99.9 F H 103/64 03/19/23 00:43 99.0 F 92 18 95/60 03/18/23 22:45 100.9 F H 86 18 128/75 03/18/23 22:17 101.9 F H 94 18 124/73 03/18/23 21:35 101 F H 88 18 123/68 03/18/23 16:00 98.2 F 72 15 105/68 03/18/23 12:45 80 16 115/75 03/18/23 12:15 79 16 109/75 Pulse Ox 03/19/23 08:10 03/19/23 08:00 03/19/23 07:32 99 03/19/23 02:00 03/19/23 00:43 99 03/18/23 22:45 99 03/18/23 22:17 100 03/18/23 21:35 99 03/18/23 16:00 03/18/23 12:45 98 03/18/23 12:15 98 Intake and Output 03/18/23 03/19/23 03/19/23 22:59 06:59 14:59 Output Total 500 Balance -500 Output: Urine 500 Uretheral (Feliciano) 500 Other: Voiding Method Toilet # Voids 2 Results 03/19/23 04:33 03/18/23 22:17 Cardiac Enzymes 03/18/23 03/18/23 Range/Units 22:17 22:45 AST 24 (14-36) U/L Troponin I <0.012 (0.000-0.034) ng/mL CBC 03/18/23 03/19/23 Range/Units 22:17 04:33 WBC 10.0 6.4 (3.8-10.6) k/uL RBC 4.08 3.43 L (3.80-5.40) m/uL Hgb 11.9 10.2 L (11.4-16.0) gm/dL Hct 37.6 32.0 L (34.0-46.0) % Plt Count 186 176 (150-450) k/uL Comprehensive Metabolic Panel 03/18/23 Range/Units 22:17 Sodium 131 L (137-145) mmol/L Potassium 4.3 (3.5-5.1) mmol/L Chloride 97 L (98-107) mmol/L Carbon Dioxide 25 (22-30) mmol/L BUN 16 (7-17) mg/dL Creatinine 0.72 (0.52-1.04) mg/dL Glucose 297 H (74-99) mg/dL Calcium 9.1 (8.4-10.2) mg/dL AST 24 (14-36) U/L ALT 21 (4-34) U/L Alkaline Phosphatase 91 (38-126) U/L Total Protein 6.8 (6.3-8.2) g/dL Albumin 3.5 (3.5-5.0) g/dL Current Medications Generic Name Dose Route Start Last Admin Trade Name Freq PRN Reason Stop Dose Admin Acetaminophen 650 mg 03/18/23 12:00 03/19/23 05:44 Acetaminophen Tab 325 Mg Tab PO 04/17/23 12:01 650 mg Q6HR CHARISMA Administration Albuterol/Ipratropium 3 ml 03/19/23 08:00 03/19/23 07:59 Ipratropium-Albuterol 3 Ml Neb INHALATION 3 ml RT-QID CHARISMA Administration Dextrose/Water 25 ml 03/19/23 11:21 Dextrose 50% Syringe 50 Ml IVP PER PROTOCOL PRN Hypoglycemia Protocol Dextrose/Water 50 ml 03/19/23 11:21 Dextrose 50% Syringe 50 Ml IVP PER PROTOCOL PRN Hypoglycemia Protocol Diphenhydramine HCl 25 mg 03/18/23 09:24 Diphenhydramine 50 Mg/Ml 1 Ml Vial IVP 04/17/23 09:25 Q6HR PRN Itching Duloxetine HCl 60 mg 03/18/23 21:00 03/19/23 08:28 Duloxetine Hcl 60 Mg Capsule.Dr PO 04/17/23 21:01 60 mg BID CHARISMA Administration Enoxaparin Sodium 40 mg 03/19/23 06:00 03/19/23 08:29 Enoxaparin 40 Mg/0.4 Ml Syringe SQ 04/18/23 06:01 40 mg DAILY CHARISMA Administration Gabapentin 600 mg 03/18/23 10:00 03/19/23 08:29 Gabapentin 300 Mg Cap PO 600 mg TID CHARISMA Administration Lactated Ringer's 1,000 mls @ 20 mls/hr 03/18/23 06:12 03/19/23 06:01 Lactated Ringers IV 04/17/23 06:13 Not Given .Q24H CHARISMA Lactated Ringer's 1,000 mls @ 100 mls/hr 03/18/23 09:30 03/19/23 06:57 Lactated Ringers IV 04/17/23 09:31 100 mls/hr .Q10H CHARISMA Administration Insulin Aspart 7 unit 03/19/23 07:30 03/19/23 08:18 Insulin Aspart (Novolog) 100 Unit/Ml Vial SQ 7 unit AC-BRKFST CHARISMA Administration Insulin Aspart 7 unit 03/18/23 12:30 03/18/23 12:29 Insulin Aspart (Novolog) 100 Unit/Ml Vial SQ 7 unit AC-LUNCH CHARISMA Administration Insulin Aspart 7 unit 03/18/23 17:30 03/18/23 16:51 Insulin Aspart (Novolog) 100 Unit/Ml Vial SQ 7 unit AC-SUPPER CHARISMA Administration Insulin Aspart 0 unit 03/19/23 12:30 Insulin Aspart (Novolog) 100 Unit/Ml Vial SQ ACHS [facility] Protocol Insulin Detemir 10 unit 03/18/23 21:00 03/18/23 21:57 Insulin Detemir (Levemir) 100 Unit/Ml Syr SQ 10 unit HS CHARISMA Administration Ketorolac Tromethamine 15 mg 03/18/23 12:00 03/19/23 05:44 Ketorolac 15 Mg/Ml 1 Ml Vial IVP 03/21/23 12:01 15 mg Q6HR CHARISMA Administration Lidocaine HCl 0.1 ml 03/18/23 06:12 Lidocaine 1% (10mg/Ml) For Iv Start INTRADERMA 04/17/23 06:13 PER PROTOCOL PRN IV Start Ondansetron HCl 4 mg 03/18/23 09:24 Ondansetron 4 Mg/2 Ml Vial IVP 04/17/23 09:25 Q8HR PRN Nausea And Vomiting Oxycodone/Acetaminophen 1 each 03/19/23 06:32 03/19/23 08:21 Oxycodone-Apap 5-325mg 1 Each Tab PO 1 each Q6HR PRN Administration Pain Pantoprazole Sodium 40 mg 03/19/23 07:30 03/19/23 08:22 Pantoprazole 40 Mg Tablet PO 04/18/23 07:31 40 mg AC-BRKFST CHARISMA Administration Propranolol HCl 80 mg 03/18/23 21:00 03/19/23 10:17 Propranolol 40 Mg Tab PO 04/17/23 21:01 80 mg BID CHARISMA Administration Senna/Docusate Sodium 2 each 03/18/23 21:00 03/19/23 08:28 Sennosides-Docusate Sodium 1 Each Tab PO 04/17/23 21:01 2 each BID CHARISMA Administration Simethicone 80 mg 03/18/23 09:24 03/18/23 21:59 Simethicone 80 Mg Chewable PO 04/17/23 09:25 80 mg ACHS PRN Administration Bloating Intake and Output 03/18/23 03/19/23 03/19/23 22:59 06:59 14:59 Output Total 500 Balance -500 Output: Urine 500 Uretheral (Feliciano) 500 Other: Voiding Method Toilet # Voids 2 03/19/23 04:33 03/18/23 22:17
[2023-03-19 15:57] LABS: ALT 19 U/L (4-34); AST 20 U/L (14-36); African American GFR (CKD) >90 (>60 ml/min/1.73 sqM); Albumin 2.7 g/dL (3.5-5.0); Alkaline Phosphatase 77 U/L (38-126); Anion Gap 7 mmol/L; Blood Urea Nitrogen 10 mg/dL (7-17); Calcium 8.7 mg/dL (8.4-10.2); Carbon Dioxide 25 mmol/L (22-30); Chloride 102 mmol/L (98-107); Globulin 2.8 g/dL; Glucose 282 mg/dL (74-99); Non-African American GFR(CKD) >90 (>60 ml/min/1.73 sqM); Potassium 3.9 mmol/L (3.5-5.1); Sodium 134 mmol/L (137-145); Total Bilirubin 0.3 mg/dL (0.2-1.3); Total Protein 5.5 g/dL (6.3-8.2)
[2023-03-19 16:32] LABS: Glucose,Whole Blood 243 mg/dL (70-110)
[2023-03-19 20:06] LABS: T4, Free (Free Thyroxine) 1.94 ng/dL (0.78-2.19)
[2023-03-19 20:57] LABS: Glucose,Whole Blood 290 mg/dL (70-110)
[2023-03-19] MEDS: ATORVASTATIN 20 MG TAB PO SCH (21:48)
[2023-03-19] MEDS: INSULIN DETEMIR (LEVEMIR) 100 UNIT/ML SYR SQ SCH (21:49)
--- NOTE | 2023-03-19 22:36 | P.CONS ---
History of Present Illness - Reason for Consult Consult date: 03/19/23 Fever Requesting physician: Brian Rudolph - Chief Complaint Fever 1 day - History of Present Illness Patient is a 52-year-old female who was electively admitted to the hospital after the patient is s/p laparoscopic hysterectomy bilateral salpingectomy and cystoscopy and lysis of adhesion patient on presentation to the hospital was afebrile however the patient did spike a fever last night of 101.9 degrees Fahrenheit postoperatively that has prompted this infectious disease consultation patient currently denies having any headache or URI symptoms no chest pain no shortness with occasional cough has been complaining of some lower abdominal pain more of a dull aching mild to moderate intensity with no radiation some nausea but no vomiting and denies having any diarrhea no bowel movement and not passing any gas has been complaining of some burning of urine and apparently did have catheter placed and has subsequently discontinued patient did have a normal white count D-dimer was mildly elevated kidney function was normal he was observed normal urine was positive patient did have a CT angiogram of the chest no acute findings in the visualized portion of the stew[facility] st infectious was consulted for further management of fever most information has been obtained through the aerial photograph interpreter as the patient does not speak Malay Review of Systems Positive point and negatives has been mentioned in the HPI, complete review of systems was performed and all other systems are negative Past Medical History Past Medical History: Diabetes Mellitus, GERD/Reflux, Hyperlipidemia, Hypertension, Pulmonary Embolus (PE) Additional Past Medical History / Comment(s): History of headaches. Insulin- requiring type 2 diabetes. Pulmonary embolus in 2020. sees Dr Guevara for elevated heart rate, neuropathy pain in extremities History of Any Multi-Drug Resistant Organisms: None Reported Past Surgical History: Section, Cholecystectomy, Orthopedic Surgery Additional Past Surgical History / Comment(s): Section X2. Left shoulder surgery. Past Anesthesia/Blood Transfusion Reactions: No Reported Reaction Past Psychological History: Anxiety, Depression Smoking Status: Former smoker Past Alcohol Use History: None Reported Additional Past Alcohol Use History / Comment(s): Quit smoking around 2018. only smoked for 2-3 years Past Drug Use History: None Reported - Past Family History Mother Family Medical History: Cancer, Diabetes Mellitus Additional Family Medical History / Comment(s): Breast cancer. A maternal aunt had breast cancer. Father Family Medical History: Cancer, Diabetes Mellitus, Deep Vein Thrombosis (DVT), Hypertension Additional Family Medical History / Comment(s): Colon cancer. Brother(s) Family Medical History: Deep Vein Thrombosis (DVT) Medications and Allergies Home Medications Medication Instructions Recorded Confirmed Type metFORMIN HCL [Glucophage] 1,000 mg PO BID 08/22/20 03/18/23 History Amitriptyline HCl 50 mg PO HS 06/01/21 03/18/23 History Ferrous Sulfate [Iron] 325 mg PO DAILY 06/01/21 03/18/23 History Valsartan 160 mg PO DAILY 10/08/22 03/18/23 History methocarbamoL [Methocarbamol] 1,000 mg PO TID PRN 10/08/22 03/18/23 History Empagliflozin [Jardiance] 10 mg PO DAILY 11/07/22 03/18/23 History Furosemide [Lasix] 20 mg PO DAILY PRN 11/07/22 03/18/23 History Insulin Aspart [NovoLOG Flexpen] 7 units SQ AC-TID 11/07/22 03/18/23 History Omeprazole [PriLOSEC] 40 mg PO DAILY 11/07/22 03/18/23 History Pioglitazone [Actos] 30 mg PO DAILY 11/07/22 03/18/23 History Sucralfate [Carafate] 1 gm PO ACHS 11/07/22 03/18/23 History ARIPiprazole [Abilify] 30 mg PO DAILY 03/13/23 03/18/23 History DULoxetine HCL [Cymbalta] 60 mg PO BID 03/13/23 03/18/23 History Dulaglutide [Trulicity] 0.75 mg SQ Q7D 03/13/23 03/18/23 History Gabapentin 600 mg PO QID 03/13/23 03/18/23 History Insulin Glargine,Hum.rec.anlog 10 units SQ HS 03/13/23 03/18/23 History [Lantus Solostar Pen] Propranolol HCl [Inderal LA] 160 mg PO DAILY 03/13/23 03/18/23 History Topiramate [Topamax] 25 mg PO DAILY 03/13/23 03/18/23 History busPIRone HCL [Buspirone HCl] 15 mg PO DAILY PRN 03/13/23 03/18/23 History traMADol HCL 50 mg PO Q6H PRN 03/13/23 03/18/23 History Acetaminophen Tab [Tylenol] 650 mg PO Q6H PRN #30 tab 03/21/23 Rx Amoxic-Pot Clav 875-125Mg 1 tab PO Q12HR 5 Days #10 tab 03/21/23 Rx [Augmentin 875-125] Ibuprofen [Motrin] 600 mg PO Q6HR PRN #30 tab 03/21/23 Rx oxyCODONE HCL [Roxicodone] 5 mg PO Q6HR PRN 3 Days #12 tab 03/21/23 Rx polyethylene glycoL 3350 [Miralax] 17 gm PO DAILY PRN #527 gm 03/21/23 Rx Allergies Allergy/AdvReac Type Severity Reaction Status Date / Time No Known Allergies Allergy Verified 03/18/23 06:24 Physical Exam Vitals: Vital Signs Temp Pulse Pulse Pulse Resp BP BP 03/19/23 08:10 88 03/19/23 08:00 84 03/19/23 07:32 99.1 F 86 17 151/91 03/19/23 02:00 99.9 F H 103/64 03/19/23 00:43 99.0 F 92 18 95/60 03/18/23 22:45 100.9 F H 86 18 128/75 03/18/23 22:17 101.9 F H 94 18 124/73 03/18/23 21:35 101 F H 88 18 123/68 03/18/23 16:00 98.2 F 72 15 105/68 03/18/23 12:45 80 16 115/75 Pulse Ox 03/19/23 08:10 03/19/23 08:00 03/19/23 07:32 99 03/19/23 02:00 03/19/23 00:43 99 03/18/23 22:45 99 03/18/23 22:17 100 03/18/23 21:35 99 03/18/23 16:00 03/18/23 12:45 98 Intake and Output 03/18/23 03/19/23 03/19/23 22:59 06:59 14:59 Output Total 500 Balance -500 Output: Urine 500 Uretheral (Feliciano) 500 Other: Voiding Method Toilet # Voids 2 GENERAL DESCRIPTION: Middle-aged female lying in bed, no distress. No tachypnea or accessory muscle of respiration use. HEENT: Shows Pallor , no scleral icterus. Oral mucous membrane is dry. No pharyngeal erythema or thrush NECK: Trachea central, no thyromegaly. LUNGS: Unlabored breathing. Clear to auscultation anteriorly. No wheeze or crackle. HEART: S1, S2, regular rate and rhythm. No loud murmur ABDOMEN: Soft, mild lower abdominal tenderness EXTREMITIES: No edema of feet. SKIN: No rash, no masses palpable. NEUROLOGICAL: The patient is awake, alert, oriented x3, mood and affect normal. Results CBC & Chem 7: 03/21/23 06:46 03/19/23 15:17 Labs: Abnormal Lab Results - Last 24 Hours (Table) 03/18/23 03/18/23 03/18/23 Range/Units 16:48 21:55 22:17 RBC (3.80-5.40) m/uL Hgb (11.4-16.0) gm/dL Hct (34.0-46.0) % Neutrophils # 8.7 H (1.3-7.7) k/uL Lymphocytes # 0.8 L (1.0-4.8) k/uL D-Dimer (<0.60) mg/L FEU Sodium (137-145) mmol/L Chloride (98-107) mmol/L Glucose (74-99) mg/dL POC Glucose (mg/dL) 198 H 280 H (70-110) mg/dL Hemoglobin A1c (<=6.0) % Plasma Lactic Acid Juliocesar (0.7-2.0) mmol/L Procalcitonin (0.02-0.09) ng/mL Urine Appearance (Clear) Urine RBC (0-5) /hpf Urine WBC (0-5) /hpf Ur Squamous Epith Cells (0-4) /hpf 03/18/23 03/18/23 03/18/23 Range/Units 22:17 22:17 22:45 RBC (3.80-5.40) m/uL Hgb (11.4-16.0) gm/dL Hct (34.0-46.0) % Neutrophils # (1.3-7.7) k/uL Lymphocytes # (1.0-4.8) k/uL D-Dimer 1.16 H (<0.60) mg/L FEU Sodium 131 L (137-145) mmol/L Chloride 97 L (98-107) mmol/L Glucose 297 H (74-99) mg/dL POC Glucose (mg/dL) (70-110) mg/dL Hemoglobin A1c (<=6.0) % Plasma Lactic Acid Juliocesar 3.4 H* (0.7-2.0) mmol/L Procalcitonin (0.02-0.09) ng/mL Urine Appearance (Clear) Urine RBC (0-5) /hpf Urine WBC (0-5) /hpf Ur Squamous Epith Cells (0-4) /hpf 03/19/23 03/19/23 03/19/23 Range/Units 01:29 01:29 02:30 RBC (3.80-5.40) m/uL Hgb (11.4-16.0) gm/dL Hct (34.0-46.0) % Neutrophils # (1.3-7.7) k/uL Lymphocytes # (1.0-4.8) k/uL D-Dimer (<0.60) mg/L FEU Sodium (137-145) mmol/L Chloride (98-107) mmol/L Glucose (74-99) mg/dL POC Glucose (mg/dL) (70-110) mg/dL Hemoglobin A1c (<=6.0) % Plasma Lactic Acid Juliocesar 3.5 H* (0.7-2.0) mmol/L Procalcitonin 0.26 H (0.02-0.09) ng/mL Urine Appearance Bloody H (Clear) Urine RBC >182 H (0-5) /hpf Urine WBC >182 H (0-5) /hpf Ur Squamous Epith Cells 215 H (0-4) /hpf 03/19/23 03/19/23 03/19/23 Range/Units 04:33 04:33 04:33 RBC 3.43 L (3.80-5.40) m/uL Hgb 10.2 L (11.4-16.0) gm/dL Hct 32.0 L (34.0-46.0) % Neutrophils # (1.3-7.7) k/uL Lymphocytes # 0.7 L (1.0-4.8) k/uL D-Dimer (<0.60) mg/L FEU Sodium (137-145) mmol/L Chloride (98-107) mmol/L Glucose (74-99) mg/dL POC Glucose (mg/dL) (70-110) mg/dL Hemoglobin A1c 10.2 H (<=6.0) % Plasma Lactic Acid Juliocesar 3.2 H* (0.7-2.0) mmol/L Procalcitonin (0.02-0.09) ng/mL Urine Appearance (Clear) Urine RBC (0-5) /hpf Urine WBC (0-5) /hpf Ur Squamous Epith Cells (0-4) /hpf 03/19/23 03/19/23 03/19/23 Range/Units 07:55 08:42 11:13 RBC (3.80-5.40) m/uL Hgb (11.4-16.0) gm/dL Hct (34.0-46.0) % Neutrophils # (1.3-7.7) k/uL Lymphocytes # (1.0-4.8) k/uL D-Dimer (<0.60) mg/L FEU Sodium (137-145) mmol/L Chloride (98-107) mmol/L Glucose (74-99) mg/dL POC Glucose (mg/dL) 382 H 451 H (70-110) mg/dL Hemoglobin A1c (<=6.0) % Plasma Lactic Acid Juliocesar 2.1 H* (0.7-2.0) mmol/L Procalcitonin (0.02-0.09) ng/mL Urine Appearance (Clear) Urine RBC (0-5) /hpf Urine WBC (0-5) /hpf Ur Squamous Epith Cells (0-4) /hpf Assessment and Plan (1) Fever postop Status: Acute Code(s): R50.82 - POSTPROCEDURAL FEVER SNOMED Code(s): 106029934 Plan: 1patient with a postop fever in this patient who is status post laparoscopic hysterectomy and bilateral salpingectomy and did have a lysis of lesion, questionably reactive the patient fever seem to have resolved and the patient did have normal white count patient did have some abdominal pain which is expect ed post surgery and also some urinary symptoms of burning concern for possible UTI versus atelectasis 2-we will empirically add Zosyn while awaiting further work-up to be completed 3-check a CRP procalcitonin and wait for the blood cultures to be finalized We will follow on clinical condition and cultures to further adjust medication if needed Thank you for this consultation we will follow the patient along with you Dictation was produced using [employer] dictation software. please excuse any gramma tical, word or spelling errors. Time with Patient: Greater than 30
--- NOTE | 2023-03-19 23:03 | PN ---
PROGRESS NOTE SUBJECTIVE: A 52-year-old [place] female. She remains to have difficulty with her elevated lactic acid. swelling. She wants her IV fluids to stopped, which we will do. Remains on broad-spectrum antibiotics. She is no longer afebrile. Dr. Chan had seen her for infection. Diabetic control is being in order with increased diabetes medicines. Status post surgery for abnormal uterine bleeding, febrile nature, possibly infection. Wait for Dr. Chan's recommendations. Diabetic control with sugar. PROGNOSIS: Guarded. MMODL / IJN: [id number] /
[2023-03-20] MEDS: KETOROLAC 15 MG/ML 1 ML VIAL IVP SCH ×4 (00:49→17:01)
[2023-03-20] MEDS: ACETAMINOPHEN TAB 325 MG TAB PO SCH ×4 (00:50→17:01)
[2023-03-20] MEDS: PIPERACILLIN-TAZOBACTAM 3.375 GM in SODIUM CHLORIDE 0.9% 100 ML IVPB SCH ×3 (00:51→15:50)
[2023-03-20] MEDS: LACTATED RINGERS 1,000 ML IV SCH ×3 (05:38→11:48)
[2023-03-20 06:07] LABS: Glucose,Whole Blood 223 mg/dL (70-110)
[2023-03-20] MEDS: PANTOPRAZOLE 40 MG TABLET PO SCH (06:52)
[2023-03-20] MEDS: INSULIN ASPART (NovoLOG) 100 UNIT/ML VIAL SQ SCH ×7 (06:53→21:49)
[2023-03-20] MEDS: IPRATROPIUM-ALBUTEROL 3 ML NEB INHALATION SCH ×4 (08:08→21:46)
[2023-03-20] MEDS: GABAPENTIN 300 MG CAP PO SCH ×3 (08:26→21:50)
[2023-03-20] MEDS: ENOXAPARIN 40 MG/0.4 ML SYRINGE SQ SCH (08:26)
[2023-03-20] MEDS: DULoxetine HCL 60 MG CAPSULE.DR PO SCH ×2 (08:26→21:50)
[2023-03-20] MEDS: SENNOSIDES-DOCUSATE SODIUM 1 EACH TAB PO SCH ×2 (08:27→21:49)
[2023-03-20] MEDS: PROPRANOLOL 40 MG TAB PO SCH ×2 (08:32→21:50)
--- NOTE | 2023-03-20 11:03 | P.PN ---
Subjective HISTORY OF PRESENT ILLNESS: This is a 52-year-old female with a past medical history significant for hypertension, hyperlipidemia, diabetes, pulmonary embolism, and former nicotine dependence. Patient follows in the office with Dr. Guevara. We have been asked to see the patient in consultation for chest pain. Patient is status post robotic total laparoscopic hysterectomy, bilateral salpingectomy, cystoscopy, and lysis of adhesions. Postop day #1. Patient examined at the bedside. Patient's family is at the bedside and translating during evaluation. Patient currently has been having chest pain on and off for the past year. Yesterday patient developed pain in the middle of her chest that felt like a cramping sensation. She states that she felt like she was unable to get a full breath. She also reports feeling dizzy yesterday which has since resolved. She reports her chest pain was reproducible upon chest wall palpation. At the time of examination, she denies chest pain or pressure. Patient's vital signs are stable. * EKG reveals sinus mechanism with no signs of acute ischemia * Chest CTA: No acute findings and visualized arteries of the chest * Laboratory data: WBC 6.4. Hemoglobin 10.2. Platelet count 176. D-dimer 1.16. Sodium 131. Potassium 4.3. BUN 16. Creatinine 0.72. Troponin negative 2. * Current home cardiac medications include valsartan 160 mg daily, propanolol 160 mg daily, Lasix 20 mg daily as needed * Most recent echocardiogram obtained in October 2022 revealed normal EF, mild MR, mild TR * Cardiac catheterization history: December 2021 revealing normal coronary arteries 03/20/2023 Patient examined this morning at the bedside. Patient's family is present and translating for patient. Patient has had no further episodes of chest pain or pressure. No episodes of shortness of breath. Patient's vital signs are stable. Echocardiogram performed revealing ejection fraction 60-65%, mild concentric LVH, no significant diastolic dysfunction, no obvious regional wall motion abnormalities, no significant valvular dysfunction, and no significant chamber size abnormality. PHYSICAL EXAM: VITAL SIGNS: Reviewed. GENERAL: Well-developed in no acute distress. HEENT: Head is normocephalic. Pupils are equal, round. Sclerae anicteric. Mucous membranes of the mouth are moist. Neck supple. No JVD or thyromegaly LUNGS: Respirations even and unlabored. Lungs essentially clear to auscultation bilaterally. HEART: Regular rate and rhythm. S1 and S2 heard. ABDOMEN: Soft. Nondistended. Nontender. EXTREMITIES: Normal range of motion. No clubbing or cyanosis. Peripheral pulses intact. No lower extremity edema NEUROLOGIC: Awake and alert. Oriented x 3. ASSESSMENT: Vaginal bleeding Status post robotic total laparoscopic hysterectomy, bilateral salpingectomy, cystoscopy, and lysis of adhesions Chest pain, reproducible, EKG nonischemic and troponins negative 2 Normal coronary arteries, per cardiac catheterization December 2021 Hypertension Hyperlipidemia Diabetes History of pulmonary embolism; taken off of anticoagulation secondary to heavy vaginal bleeding Former nicotine dependence, patient quit smoking 4 years ago PLAN: Continue current cardiac medications Patient is stable from a cardiac standpoint with no further inpatient recommendations Patient to follow up post discharge with Dr. Guevara We will sign off. Please reconsult if needed. Nurse practitioner note has been reviewed by physician. Signing provider agrees with the documented findings, assessment, and plan of care. Dr. Shahid's Addendum I agree with the above plan Continue atorvastatin for primary prevention. Will not start aspirin due to recent vaginal bleeding. She needs outpatient follow-up with cardiology for primary prevention. I have personally seen and examined the patient. I have personally performed all the components of medical care documented above including detailed hisotry, review of system, physican exam, MDM and formulating the assessment and plan. I have personally reviewed the relevant labs, imaging and other diagnostics. I have discussed this in detail with my SOCIAL SERVICES SPECIALIST who has helped me with this documentation. I have carefully reviewed this document before finalizing. Total time spent reviewing medical chart, examining patient, counselling patient and documentation 30 mins Thank you for letting cardiology team participating in this patient's care. Dr. Can Shahid MD Cardiovascular Disease Objective - Vital Signs Vital signs: Vital Signs Temp 98.3 F 03/20/23 07:00 Pulse 80 03/20/23 08:19 Resp 16 03/20/23 08:19 BP 150/85 03/20/23 07:00 Pulse Ox 98 03/20/23 08:08 FiO2 Intake & Output 03/19/23 03/20/23 03/20/23 18:59 06:59 18:59 Other: Voiding Method Toilet # Voids 1 2 1 - Labs CBC & Chem 7: 03/19/23 04:33 03/19/23 15:17 Labs: Abnormal Lab Results - Last 24 Hours (Table) 03/19/23 03/19/23 03/19/23 Range/Units 04:33 11:13 12:04 Sodium (137-145) mmol/L Glucose (74-99) mg/dL POC Glucose (mg/dL) 451 H (70-110) mg/dL Hemoglobin A1c 10.3 H (<=6.0) % Plasma Lactic Acid Juliocesar 2.2 H* (0.7-2.0) mmol/L Total Protein (6.3-8.2) g/dL Albumin (3.5-5.0) g/dL TSH (0.465-4.680) mIU/L 03/19/23 03/19/23 03/19/23 Range/Units 15:17 15:17 16:31 Sodium 134 L (137-145) mmol/L Glucose 282 H (74-99) mg/dL POC Glucose (mg/dL) 243 H (70-110) mg/dL Hemoglobin A1c (<=6.0) % Plasma Lactic Acid Juliocesar 2.3 H* (0.7-2.0) mmol/L Total Protein 5.5 L (6.3-8.2) g/dL Albumin 2.7 L (3.5-5.0) g/dL TSH (0.465-4.680) mIU/L 03/19/23 03/19/23 03/20/23 Range/Units 18:13 20:55 06:06 Sodium (137-145) mmol/L Glucose (74-99) mg/dL POC Glucose (mg/dL) 290 H 223 H (70-110) mg/dL Hemoglobin A1c (<=6.0) % Plasma Lactic Acid Juliocesar (0.7-2.0) mmol/L Total Protein (6.3-8.2) g/dL Albumin (3.5-5.0) g/dL TSH 0.256 L (0.465-4.680) mIU/L
[2023-03-20 11:14] LABS: Glucose,Whole Blood 274 mg/dL (70-110)
[2023-03-20 12:56] VITALS: BMI 29.0
[2023-03-20 16:10] LABS: Glucose,Whole Blood 307 mg/dL (70-110)
--- NOTE | 2023-03-20 17:22 | P.PN ---
Subjective Progress Note Date: 03/20/23 Principal diagnosis: POD#2 s/p RATLH, BS, Cystoscopy, Lysis of Adhesions The patient feels much better today. Pain is well controlled with the medications. She is voiding without difficulty, not having any vaginal bleeding. She is ambulating and using incentive spirometer. She denies fevers, chills, shortness of breath, chest pain, pain/swelling in the legs. Objective - Vital Signs Vital signs: Vital Signs Temp 98.8 F 03/20/23 13:16 Pulse 79 03/20/23 13:16 Resp 17 03/20/23 13:16 BP 126/81 03/20/23 13:16 Pulse Ox 99 03/20/23 13:16 FiO2 Intake & Output 03/19/23 03/20/23 03/20/23 18:59 06:59 18:59 Weight 81.7 kg Other: Voiding Method Toilet Toilet # Voids 1 2 2 - Gastrointestinal Gastrointestinal Comment(s): Incisions clean, dry, and intact General gastrointestinal: Present: soft - Psychiatric Psychiatric: Present: A&O x's 3, appropriate affect, intact judgment & insight - Labs CBC & Chem 7: 03/19/23 04:33 03/19/23 15:17 Labs: Abnormal Lab Results - Last 24 Hours (Table) 03/19/23 03/19/23 03/19/23 Range/Units 04:33 18:13 20:55 POC Glucose (mg/dL) 290 H (70-110) mg/dL Hemoglobin A1c 10.3 H (<=6.0) % TSH 0.256 L (0.465-4.680) mIU/L 03/20/23 03/20/23 03/20/23 Range/Units 06:06 11:13 16:09 POC Glucose (mg/dL) 223 H 274 H 307 H (70-110) mg/dL Hemoglobin A1c (<=6.0) % TSH (0.465-4.680) mIU/L Microbiology - Last 24 Hours (Table) 03/19/23 13:55 Urine Culture - Preliminary Urine,Voided Gram Neg Bacilli 03/19/23 01:29 Blood Culture - Preliminary Blood Assessment and Plan Assessment: 52 year old with AUB secondary to suspected adenomyosis POD#2 s/p Robotic Total Laparoscopic Hysterectomy, Bilateral Salpingectomy, and Cystoscopy. Plan: 1. Postoperative. Patient meeting postoperative milestones appropriately, continue to monitor. Encourage ambulation and incentive spirometer use. 2. Post-operative fever on 03/18 PM with elevated lactic acid - resolved with IV hydration. Getting IV Zosyn empirically per ID. No leukocytosis, has been afebrile >24 hours. Suspected this was 2/2 to atelectasis post-operatively. Blood negative, urine cx POSITIVE for gram negative bacilli. 3. Poorly controlled type 2 diabetes mellitus. Medicine following. Insulin ordered with sliding scale. Ideally, BS <200 for postoperative healing. 4. Chest pain (resolved). ECHO unremarkable and similar to prior study. EKG nsr. Cardiology has cleared the patient and signed off. 5. DVT ppx. Lovenox 40mg SQ qDay Dispo: Anticipate discharge home once blood glucose well controlled and once cleared by ID. Stable for discharge from surgical perspective. Time with Patient: Less than 30 (15 minutes)
[2023-03-20] MEDS ORDERED: IBUPROFEN 600 MG TAB PO PRN (17:25)
[2023-03-20 20:26] LABS: Glucose,Whole Blood 257 mg/dL (70-110)
[2023-03-20] MEDS: INSULIN DETEMIR (LEVEMIR) 100 UNIT/ML SYR SQ SCH (21:49)
[2023-03-20] MEDS: ATORVASTATIN 20 MG TAB PO SCH (21:49)
--- NOTE | 2023-03-20 22:28 | P.PN ---
Subjective Progress Note Date: 03/20/23 Principal diagnosis: Postop fever Patient is a 52-year-old female who was electively admitted to the hospital after the patient is s/p laparoscopic hysterectomy bilateral salpingectomy and cystoscopy and lysis of adhesion patient on presentation to the hospital was afebrile however the patient did spike a fever last night of 101.9 degrees Fahrenheit postoperatively that has prompted this infectious disease consultation. On today's evaluation that is 03/20/2023, the patient is afebrile patient is breathing comfortably on room air patient denies having any chest pain or short ness with occasional cough abdominal discomfort has decreased in intensity no nausea no vomiting and no diarrhea Objective - Vital Signs Vital signs: Vital Signs Temp 98.3 F 03/20/23 07:00 Pulse 80 03/20/23 08:19 Resp 16 03/20/23 08:19 BP 150/85 03/20/23 07:00 Pulse Ox 98 03/20/23 08:08 FiO2 Intake & Output 03/19/23 03/20/23 03/20/23 18:59 06:59 18:59 Other: Voiding Method Toilet # Voids 1 2 1 - Exam GENERAL DESCRIPTION: A middle-age female up in the chair in no distress RESPIRATORY SYSTEM: Unlabored breathing , decreased breath sounds at bases HEART: S1 S2 regular rate and rhythm , ABDOMEN: Soft , no tenderness EXTREMITIES: No edema feet - Labs CBC & Chem 7: 03/19/23 04:33 03/19/23 15:17 Labs: Abnormal Lab Results - Last 24 Hours (Table) 03/19/23 03/19/23 03/19/23 Range/Units 04:33 12:04 15:17 Sodium 134 L (137-145) mmol/L Glucose 282 H (74-99) mg/dL POC Glucose (mg/dL) (70-110) mg/dL Hemoglobin A1c 10.3 H (<=6.0) % Plasma Lactic Acid Juliocesar 2.2 H* (0.7-2.0) mmol/L Total Protein 5.5 L (6.3-8.2) g/dL Albumin 2.7 L (3.5-5.0) g/dL TSH (0.465-4.680) mIU/L 07/19/23 07/19/23 07/19/23 Range/Units 15:17 16:31 18:13 Sodium (137-145) mmol/L Glucose (74-99) mg/dL POC Glucose (mg/dL) 243 H (70-110) mg/dL Hemoglobin A1c (<=6.0) % Plasma Lactic Acid Juliocesar 2.3 H* (0.7-2.0) mmol/L Total Protein (6.3-8.2) g/dL Albumin (3.5-5.0) g/dL TSH 0.256 L (0.465-4.680) mIU/L 03/19/23 03/20/23 03/20/23 Range/Units 20:55 06:06 11:13 Sodium (137-145) mmol/L Glucose (74-99) mg/dL POC Glucose (mg/dL) 290 H 223 H 274 H (70-110) mg/dL Hemoglobin A1c (<=6.0) % Plasma Lactic Acid Juliocesar (0.7-2.0) mmol/L Total Protein (6.3-8.2) g/dL Albumin (3.5-5.0) g/dL TSH (0.465-4.680) mIU/L Assessment and Plan (1) Fever postop Current Visit: Yes Status: Acute Code(s): R50.82 - POSTPROCEDURAL FEVER SNOMED Code(s): 266199133 Plan: 1patient with a postop fever in this patient who is status post laparoscopic hysterectomy and bilateral salpingectomy and did have a lysis of lesion, questionably reactive the patient fever seem to have resolved and the patient did have normal white count patient did have some abdominal pain which is expected post surgery and also some urinary symptoms of burning concern for possible UTI versus atelectasis 2-patient had shown clinical improvement and did have resolution of the fever we will continue the patient was also evaluated for the cultures to finalize Dictation was produced using [employer] dictation software. please excuse any grammatical, word or spelling errors. Time with Patient: Less than 30
[2023-03-21] MEDS: PIPERACILLIN-TAZOBACTAM 3.375 GM in SODIUM CHLORIDE 0.9% 100 ML IVPB SCH ×2 (00:51→08:39)
[2023-03-21] MEDS: ACETAMINOPHEN TAB 325 MG TAB PO SCH ×2 (00:52→06:32)
[2023-03-21] MEDS: LACTATED RINGERS 1,000 ML IV SCH ×2 (04:52→07:51)
[2023-03-21 06:00] LABS: Glucose,Whole Blood 306 mg/dL (70-110)
[2023-03-21] MEDS: INSULIN ASPART (NovoLOG) 100 UNIT/ML VIAL SQ SCH ×2 (06:31)
[2023-03-21] MEDS: PANTOPRAZOLE 40 MG TABLET PO SCH (06:32)
[2023-03-21 08:01] VITALS: BP 160/88; RESP 14; TEMP 97.9
[2023-03-21] MEDS: IPRATROPIUM-ALBUTEROL 3 ML NEB INHALATION SCH (08:29)
[2023-03-21 09:03] VITALS: PULSE 86
--- NOTE | 2023-03-21 09:34 | P.PN ---
Subjective Progress Note Date: 03/21/23 Principal diagnosis: POD#3 s/p RATLH, BS, Cystoscopy, Lysis of Adhesions The patient feels much better today. Pain is well controlled with the medications. She is voiding without difficulty, not having any vaginal bleeding. She is eating and drinking without nausea or vomiting. However, she has has not had much to eat because she dislikes the hosptial food. She is ambulating and using incentive spirometer. She is not yet passing gas. She denies fevers, chills, shortness of breath, chest pain, pain/swelling in the legs. Objective - Vital Signs Vital signs: Vital Signs Temp 97.9 F 03/21/23 06:54 Pulse 80 03/21/23 08:45 Resp 14 03/21/23 07:45 BP 160/88 03/21/23 06:54 Pulse Ox 97 03/21/23 08:29 FiO2 Intake & Output 03/20/23 03/21/23 03/21/23 18:59 06:59 18:59 Weight 81.7 kg Other: Voiding Method Toilet Toilet # Voids 2 1 - Exam Focused physical exam is performed. Vital signs are stable, patient afebrile. The patient is A+Ox3, no apparent distress. Non-labored breathing. Warm, well- perfused. Abdomen soft, non-distended, appropriately tender. + bowel sounds on ascultation. Incisions clean, dry, and intact. Extremities non-tender, non- edematous. - Labs CBC & Chem 7: 03/19/23 04:33 03/19/23 15:17 Labs: Abnormal Lab Results - Last 24 Hours (Table) 03/19/23 03/20/23 03/20/23 Range/Units 04:33 11:13 16:09 POC Glucose (mg/dL) 274 H 307 H (70-110) mg/dL Hemoglobin A1c 10.3 H (<=6.0) % 03/20/23 03/21/23 Range/Units 20:25 05:59 POC Glucose (mg/dL) 257 H 306 H (70-110) mg/dL Hemoglobin A1c (<=6.0) % Microbiology - Last 24 Hours (Table) 03/19/23 13:55 Urine Culture - Preliminary Urine,Voided Gram Neg Bacilli 07/19/23 01:29 Blood Culture - Preliminary Blood Assessment and Plan Assessment: 52 year old with AUB secondary to suspected adenomyosis POD#3 s/p Robotic Total Laparoscopic Hysterectomy, Bilateral Salpingectomy, and Cystoscopy, course complicated by post-operative fever and lactic acidosis Plan: 1. Postoperative. Patient meeting postoperative milestones appropriately, continue to monitor. Encourage ambulation and incentive spirometer use. 2. Post-operative fever on 7/18 PM with elevated lactic acid - resolved with IV hydration. Getting IV Zosyn empirically per ID. No leukocytosis, has been afebrile >24 hours. Suspected this was 2/2 to atelectasis post-operatively. Blood negative, urine cx POSITIVE for gram negative bacilli. 3. Poorly controlled type 2 diabetes mellitus. Medicine following. Insulin ordered with sliding scale. Ideally, BS <200 for postoperative healing. 4. Chest pain (resolved). ECHO unremarkable and similar to prior study. EKG nsr . Cardiology has cleared the patient and signed off. 5. DVT ppx. Lovenox 40mg SQ qDay Dispo: Patient stable for discharge from post-operative standpoint. Per ID, patient is stable for discharge with PO Augmentin 875 mg BID x 5days. Per Medicine, patient stable for discharge. Will have patient follow up next week in the office with Dr. Tapia, her PCP. Post-operative instructions reviewed with the patient and all questions answered.
--- NOTE | 2023-03-21 09:35 | P.DS ---
Providers Date of admission: 03/18/23 22:25 Expected date of discharge: 03/21/23 Attending physician: Eunice Freeman MD Consults: 03/18/23 11:45 Consult Physician Routine Consulting Provider: Brian Rudolph Consult Reason/Comments: Management of IDDM Do you want consulting provider notified?: Yes 03/18/23 23:23 Consult Physician Routine Consulting Provider: Yair Chan Consult Reason/Comments: fever Do you want consulting provider notified?: Yes Primary care physician: [facility] Course: This is a 52-year-old with a history of abnormal uterine bleeding who is postoperative day #3 status post a robotic total laparoscopic hysterectomy with bilateral salpingectomy and cystoscopy. The surgery went well and was uncomplicated. On postoperative day #0 at 22:15 the patient had a postoperative fever of 101.9. At that time she was also complaining of some chest pain. The a team was called for a rapid response. Lab work was ordered and a chest CTA, EKG, urinalysis, urine culture, and blood cultures. Chest CTA was negative for pulmonary embolism, EKG showed normal sinus rhythm, lab work was unremarkable aside from a lactic acid of 3.5. Troponins were negative x2. Dr. Tamez has been following the patient from a medicine standpoint for history of type 2 diabetes mellitus, history of pulmonary embolism, hypertension, and hyperlipidemia. She also follows outpatient with cardiology for history of angina. The cardiology team was consulted and performed an echo which was stable from her prior in October 2022. The cardiology team signed off the patient. Infectious disease was also consulted who started the patient on IV Zosyn empirically for postoperative fever. After several days of no growth on the blood culture, it is suspected that the postoperative fever was reactive from surgery. Preliminary urine cultures showed gram-negative bacilli. Per the infectious disease team, the patient is stable for discharge home on 5 days of Augmentin twice daily. Today, the patient is doing well. She is ambulating eating and drinking without nausea or vomiting, has no vaginal bleeding, is urinating without difficulty. She does state that she has not yet passed gas, however her abdomen is non-distended and she has normal bowel sounds. She has not yet had a bowel movement. There is a language barrier as she is a wiyot [place]vian speaker. She has her support person at the bedside providing interpretation services. Patient denies chest pain, shortness of breath, fever, chills, pain/swelling in the legs. Post-operative restrictions are reviewed with the patient including pelvic rest for 6 weeks, no lifting heavier than 15 pounds for 6 weeks. The patient is encouraged to call the office if she experiences any heavy bleeding, foul-smelling discharge, breast complaints, or any if she has any other concerns. She will follow up in the office in 2 weeks for incision check. She will also follow up with her PCP, Dr. Rey, next week for continued diabetic control. All questions are answered. Assessment: 52 year old female POD#3 s/p CHARLETTE, BS, Cystoscopy, course complicated by post- operative fever and chest-pain. Patient Condition at Discharge: Good Plan - Discharge Summary Discharge Rx Participant: No New Discharge Prescriptions: New polyethylene glycoL 3350 [Miralax] 17 gm PO DAILY PRN #527 gm PRN Reason: Constipation Amoxic-Pot Clav 875-125Mg [Augmentin 875-125] 1 tab PO Q12HR 5 Days #10 tab Ibuprofen [Motrin] 600 mg PO Q6HR PRN #30 tab PRN Reason: Mild Pain (Scale 1 To 3) oxyCODONE HCL [Roxicodone] 5 mg PO Q6HR PRN 3 Days #12 tab PRN Reason: Breakthrough Pain Acetaminophen Tab [Tylenol] 650 mg PO Q6H PRN #30 tab PRN Reason: Mild Pain (Scale 1 To 3) No Action metFORMIN HCL [Glucophage] 1,000 mg PO BID Amitriptyline HCl 50 mg PO HS Ferrous Sulfate [Iron] 325 mg PO DAILY Valsartan 160 mg PO DAILY Omeprazole [PriLOSEC] 40 mg PO DAILY Pioglitazone [Actos] 30 mg PO DAILY Furosemide [Lasix] 20 mg PO DAILY PRN PRN Reason: Edema Sucralfate [Carafate] 1 gm PO ACHS ARIPiprazole [Abilify] 30 mg PO DAILY traMADol HCL 50 mg PO Q6H PRN PRN Reason: Pain Gabapentin 600 mg PO QID DULoxetine HCL [Cymbalta] 60 mg PO BID methocarbamoL [Methocarbamol] 1,000 mg PO TID PRN PRN Reason: Muscle Spasm Empagliflozin [Jardiance] 10 mg PO DAILY Insulin Aspart [NovoLOG Flexpen] 7 units SQ AC-TID Insulin Glargine,Hum.rec.anlog [Lantus Solostar Pen] 10 units SQ HS Topiramate [Topamax] 25 mg PO DAILY Propranolol HCl [Inderal LA] 160 mg PO DAILY busPIRone HCL [Buspirone HCl] 15 mg PO DAILY PRN PRN Reason: Anxiety Dulaglutide [Trulicity] 0.75 mg SQ Q7D Discharge Medication List metFORMIN HCL [Glucophage] 1,000 mg PO BID 08/22/20 [History] Amitriptyline HCl 50 mg PO HS 06/01/21 [History] Ferrous Sulfate [Iron] 325 mg PO DAILY 06/01/21 [History] Valsartan 160 mg PO DAILY 10/08/22 [History] methocarbamoL [Methocarbamol] 1,000 mg PO TID PRN 10/08/22 [History] Empagliflozin [Jardiance] 10 mg PO DAILY 11/07/22 [History] Furosemide [Lasix] 20 mg PO DAILY PRN 11/07/22 [History] Insulin Aspart [NovoLOG Flexpen] 7 units SQ AC-TID 11/07/22 [History] Omeprazole [PriLOSEC] 40 mg PO DAILY 11/07/22 [History] Pioglitazone [Actos] 30 mg PO DAILY 11/07/22 [History] Sucralfate [Carafate] 1 gm PO ACHS 11/07/22 [History] ARIPiprazole [Abilify] 30 mg PO DAILY 03/13/23 [History] DULoxetine HCL [Cymbalta] 60 mg PO BID 03/13/23 [History] Dulaglutide [Trulicity] 0.75 mg SQ Q7D 03/13/23 [History] Gabapentin 600 mg PO QID 03/13/23 [History] Insulin Glargine,Hum.rec.anlog [Lantus Solostar Pen] 10 units SQ HS 03/13/23 [History] Propranolol HCl [Inderal LA] 160 mg PO DAILY 03/13/23 [History] Topiramate [Topamax] 25 mg PO DAILY 03/13/23 [History] busPIRone HCL [Buspirone HCl] 15 mg PO DAILY PRN 03/13/23 [History] traMADol HCL 50 mg PO Q6H PRN 03/13/23 [History] Acetaminophen Tab [Tylenol] 650 mg PO Q6H PRN #30 tab 03/21/23 [Rx] Amoxic-Pot Clav 875-125Mg [Augmentin 875-125] 1 tab PO Q12HR 5 Days #10 tab 03/21/23 [Rx] Ibuprofen [Motrin] 600 mg PO Q6HR PRN #30 tab 03/21/23 [Rx] oxyCODONE HCL [Roxicodone] 5 mg PO Q6HR PRN 3 Days #12 tab 03/21/23 [Rx] polyethylene glycoL 3350 [Miralax] 17 gm PO DAILY PRN #527 gm 03/21/23 [Rx] Follow up Appointment(s)/Referral(s): Ariel Guevara MD [STAFF PHYSICIAN] - 2 Weeks Deja Tapia MD [Primary Care Provider] - 1 Week Eunice Freeman MD [STAFF PHYSICIAN] - 1 Week Patient Instructions/Handouts: Laparoscopic Hysterectomy (DC) Activity/Diet/Wound Care/Special Instructions: Post-operative Instructions 1. No heavy lifting or straining (exercising) until after 6 week checkup. 2. Do not resume sexual relations for 6 weeks or longer if uncomfortable. 3. You may take tub baths or showers at any time. 4. Keep any incisions clean and dry. 5. Call the office, , within the next week to make appointment for your 2 week incision check. 8. Report any of the following occurrences to the doctor promptly: a. Heavy, excessive bleeding b. Chills, fever c. Burning or frequency of urination Instrucciones postoperatorias 1. No levantar objetos pesados hasta despus de la revisin de las 6 semanas. 2. No reanude las relaciones sexuales amando 6 semanas o ms si se siente incmodo. 3. Puede radha baos de chela o duchas en cualquier momento. 4. Mantenga las incisiones limpias y secas. 5. Llame a la oficina, , el lunes para hacer trini jace para chua siguinete visita 8. Informe inmediatamente al mdico cualquiera de los siguientes sucesos: a. Sangrado intenso y excesivo b. escalofros, fiebre C. Ardor o frecuencia de miccin Discharge Disposition: HOME SELF-CARE
[2023-03-21] MEDS: DULoxetine HCL 60 MG CAPSULE.DR PO SCH (09:42)
[2023-03-21] MEDS: GABAPENTIN 300 MG CAP PO SCH (09:42)
[2023-03-21] MEDS: PROPRANOLOL 40 MG TAB PO SCH (09:42)
[2023-03-21] MEDS: SENNOSIDES-DOCUSATE SODIUM 1 EACH TAB PO SCH (09:42)
[2023-03-21] MEDS: ENOXAPARIN 40 MG/0.4 ML SYRINGE SQ SCH (09:43)
[2023-03-21 11:10] LABS: Basophils # (A) 0.02 X 10*3/uL (0.00-0.10); Basophils % (A) 0.3 %; Eosinophils # (A) 0.09 X 10*3/uL (0.04-0.35); Eosinophils % (A) 1.3 %; HCT 32.9 % (37.2-46.3); HGB 10.5 d/dL (12.0-15.0); Lymphocytes # (A) 1.44 X 10*3/uL (0.90-5.00); Lymphocytes % (A) 21.1 %; MCH 28.5 pg (27.0-32.0); MCHC 31.9 d/dL (32.0-37.0); MCV 89.2 FL (80.0-97.0); Mean Platelet Volume 11.5 FL (9.5-12.2); Monocytes # (A) 0.42 X 10*3/uL (0.20-1.00); Monocytes % (A) 6.1 %; NRBC Per 100 WBC 0 X 10*3/uL (0.00-0.01); Neutrophils # (A) 4.83 X 10*3/uL (1.80-7.70); Neutrophils % (A) 70.8 %; Platelet Count 229 X 10*3/uL (140-440); RBC 3.69 X 10*6/uL (4.10-5.20); WBC 6.83 X 10*3/uL (4.50-10.00)
== END 2023-03-21 11:04 | disposition home or self-care (01) ==
LOC: OR 05:35 → 4FBP 09:18 → INTOOBSV 22:25 → UNDOADMOB 22:25 → OR 22:25 → 4SSUR 22:25
PROVIDERS: ADMIT Obstetrics & Gynecology; ATTEND Obstetrics & Gynecology
DX: D25.9 Leiomyoma of uterus, unspecified (principal); N80.03 Adenomyosis of the uterus; N88.8 Other specified noninflammatory disorders of cervix uteri; R50.82 Postprocedural fever; R07.9 Chest pain, unspecified; E87.20 Acidosis, unspecified; E11.9 Type 2 diabetes mellitus without complications; R79.89 Other specified abnormal findings of blood chemistry; K21.9 Gastro-esophageal reflux disease without esophagitis; E78.5 Hyperlipidemia, unspecified; F41.9 Anxiety disorder, unspecified; F32.A Depression, unspecified; I20.9 Angina pectoris, unspecified; I10 Essential (primary) hypertension; Z86.711 Personal history of pulmonary embolism; Z90.49 Acquired absence of other specified parts of digestive tract; Z87.891 Personal history of nicotine dependence; Z79.84 Long term (current) use of oral hypoglycemic drugs; Z79.899 Other long term (current) drug therapy; Z79.4 Long term (current) use of insulin; Z83.3 Family history of diabetes mellitus; Z80.3 Family history of malignant neoplasm of breast; Z80.0 Family history of malignant neoplasm of digestive organs; Z82.49 Family history of ischemic heart disease and other diseases of the circulatory system
CPT/HCPCS: 58571; S2900; 64999; 71275; 80053; 81001; 81025; 82533; 83036; 83605; 84145; 84436; 84439; 84443; 84484; 85025; 85379; 86850; 86900; 86901; 87040; 87077; 87086; 87186; 88307; 93005; 93306; 94640; 94760

== ENCOUNTER → 2023-07-01 | Outpatient (CLI) | payer OTHER ==
--- NOTE | 2023-07-03 08:36 | MR ---
EXAMINATION TYPE: MR cervical spine wo con DATE OF EXAM: 07/01/2023 9:08 PM CLINICAL INDICATION:Female, 53 years old with history of M54.2; PHH, Neck pain, tingling and numbness down right arm for 5 months COMPARISON: None. TECHNIQUE: Multi planar, multi sequence imaging was performed utilizing: T1-weighted, T2-weighted, an d turbo inversion recovery imaging of the cervical spine. IV Contrast: (none if empty) FINDINGS: Alignment: The cervical vertebral bodies have preserved heights. Alignment is within normal limits gi huey patient positioning. Bones: Scattered Modic endplate changes with osteophytes and disc space narrowing. Multilevel degener ative disc disease is noted and most pronounced at the C5-C7 vertebral levels. Cord: The spinal cord is unremarkable with regards to their signal intensity and morphology. Discs: Multilevel disc desiccation is present. C2-C3: No significant disc pathology. The spinal canal is patent. Bilateral facet and uncovertebral joint arthropathy are present with mild left neural foraminal stenosis. The right neural foramen is p atent. C3-C4: No significant disc pathology. The spinal canal is patent. Bilateral facet and uncovertebral joint arthropathy are present with mild left neural foraminal stenosis. The right neural foramen is p atent. C4-C5: No significant disc pathology. The spinal canal is patent. Bilateral facet and uncovertebral joint arthropathy are present with mild left neural foraminal stenosis. The right neural foramen is p atent. C5-C6: A disc osteophyte complex is present with moderate spinal canal stenosis. Bilateral facet and uncovertebral joint arthropathy are present with moderate to severe bilateral neural foraminal steno sis. C6-C7: A disc osteophyte complex is present with moderate spinal canal stenosis. Bilateral facet and uncovertebral joint arthropathy are present with severe left and moderate right neural foraminal javed nosis. C7-T1: No significant disc pathology. The spinal canal is patent. No neural foraminal stenosis. Other: None. IMPRESSION: 1. No evidence for disc herniation or significant spinal canal stenosis. 2. Moderate disc degeneration with associated osteoarthritic changes at C5-C7 with moderate spinal ca nal stenosis and moderate to severe bilateral C5-C6 and severe left and moderate right C6-C7 neural f oraminal stenosis.
== END | disposition home or self-care (01) ==
LOC: RADMRIMAIN 20:15
PROVIDERS: ATTEND Orthopaedic Surgery
DX: M99.71 Connective tissue and disc stenosis of intervertebral foramina of cervical region (principal); M47.812 Spondylosis without myelopathy or radiculopathy, cervical region; M50.322 Other cervical disc degeneration at C5-C6 level; M48.02 Spinal stenosis, cervical region
CPT/HCPCS: 72141

== ENCOUNTER → 2023-12-18 | Outpatient (CLI) | payer OTHER ==
--- NOTE | 2023-12-18 20:13 | MM ---
Reason for Exam: Screening (asymptomatic). Last mammogram was performed 1 year(s) and 2 month(s) ago. Patient History: Menarche at age 11. First Full-Term at age 16. Risk Values: Lisa 5 year model risk: 0.8%. NCI Lifetime model risk: 7.0%. Prior Study Comparison: 10/09/2022 Bilateral MG screening mammo w CAD, [facility]. Tissue Density: There are scattered areas of fibroglandular density. Findings: Analyzed By CAD. The pattern is symmetrical. Pattern appears stable. No significant interval change is evident. There are some rounded calcifications in the 6:00 middle position right breast. Additional workup with magnification views is recommended. Left breast:No suspicious groups of microcalcifications, spiculated or lobular masses, architectural distortion or other secondary signs of malignancy are mammographically apparent. Overall Assessment: Incomplete: need additional imaging evaluation, BI-RAD 0 Management: Diagnostic Mammogram of the right breast. A negative mammogram report should not preclude additional follow up of suspicious palpable abnormalities. Patient should continue monthly self breast exam. A clinical breast exam by your physician is recommended on an annual basis and results should be correlated with mammographic findings. Note on Lisa scores and lifetime risk: 1. A Lisa score greater than 3% is considered moderate risk. If this is the case, consider specialist referral to assess eligibility for a risk reducing agent. 2. If overall lifetime risk for the development of breast cancer is 20% or higher, the patient may qualify for future screening with alternating mammogram and breast MRI. Electronically signed and approved by: Heath Wade D.O. Radiologis
== END | disposition home or self-care (01) ==
LOC: RADMAMWWP 15:48
PROVIDERS: ATTEND Family Medicine
DX: Z12.31 Encounter for screening mammogram for malignant neoplasm of breast (principal)
CPT/HCPCS: 77067

== ENCOUNTER → 2023-12-22 | Outpatient (CLI) | payer OTHER ==
--- NOTE | 2023-12-22 08:52 | MM ---
Reason for Exam: Additional evaluation requested from abnormal screening. Last screening mammogram was performed less than 1 month ago. Patient History: Menarche at age 11. First Full-Term at age 16. Risk Values: Lisa 5 year model risk: 0.8%. NCI Lifetime model risk: 7.0%. Prior Study Comparison: 10/09/2022 Bilateral MG screening mammo w CAD, [facility]. 12/18/2023 Bilateral MG screening mammo w CAD, [facility]. Tissue Density: Right: There are scattered areas of fibroglandular density. Findings: Analyzed By CAD. There is a group of microcalcifications identified only on the CC projection 0.4 cm from the nipple. Six-month follow-up is recommended. Overall Assessment: Probably benign, BI-RAD 3 Management: Diagnostic Mammogram of the right breast in 6 months. . Results were given to the patient verbally at the time of exam. Patient should continue monthly self-breast exams. A clinical breast exam by your physician is recommended on an annual basis. This exam should not preclude additional follow-up of suspicious palpable abnormalities. Note on Lisa scores and lifetime risk: 1. A Lisa score greater than 3% is considered moderate risk. If this is the case, consider specialist referral to assess eligibility for a risk reducing agent. 2. If overall lifetime risk for the development of breast cancer is 20% or higher, the patient may qualify for future screening with alternating mammogram and breast MRI. Electronically signed and approved by: Enmanuel Quijano M.D. Radiologis
== END | disposition home or self-care (01) ==
LOC: RADMAMWWP 08:06
PROVIDERS: ATTEND Family Medicine
DX: R92.321 Mammographic fibroglandular density, right breast (principal); R92.0 Mammographic microcalcification found on diagnostic imaging of breast
CPT/HCPCS: 77065; G0279; 77061

== ENCOUNTER → 2023-12-29 | Outpatient (CLI) | payer OTHER ==
--- NOTE | 2023-12-29 11:18 | XR ---
EXAMINATION TYPE: XR chest 2V DATE OF EXAM: 12/29/2023 9:34 AM CLINICAL INDICATION:Female, 53 years old with history of Z01.818 PRE OP; COMPARISON: Chest radiographs from 03/05/2023. TECHNIQUE: XR chest 2V Frontal and lateral views of the chest. FINDINGS: Lungs/Pleura: There is no evidence of pleural effusion, focal consolidation, or pneumothorax. Pulmonary vascularity: Unremarkable. Heart/mediastinum: Cardiomediastinal silhouette is unremarkable. Musculoskeletal: No acute osseous pathology. IMPRESSION: No acute cardiopulmonary disease/process.
[2023-12-29 14:26] LABS: Basophils # (A) 0.04 X 10*3/uL (0.00-0.10); Basophils % (A) 0.5 %; Eosinophils % (A) 1.2 %; HCT 40.6 % (37.2-46.3); Lymphocytes # (A) 2.72 X 10*3/uL (0.90-5.00); Lymphocytes % (A) 31.9 %; MCV 90.6 FL (80.0-97.0); Mean Platelet Volume 10.4 FL (9.5-12.2); Monocytes # (A) 0.48 X 10*3/uL (0.20-1.00); Monocytes % (A) 5.6 %; NRBC Per 100 WBC 0 X 10*3/uL (0.00-0.01); Neutrophils # (A) 5.16 X 10*3/uL (1.80-7.70); Neutrophils % (A) 60.4 %; Platelet Count 316 X 10*3/uL (140-440); RBC 4.48 X 10*6/uL (4.10-5.20); RDW 12.7 % (11.5-14.5); WBC 8.53 X 10*3/uL (4.50-10.00)
[2023-12-29 15:29] LABS: INR 0.99 sec (0.93-1.11); Prothrombin Time 10.7 sec (9.9-11.9)
[2023-12-29 15:59] LABS: NT-Pro-B-Type Natriuretic Pept <36 pg/mL (0-125)
[2023-12-29 16:01] LABS: ALT 17 U/L (8-44); AST 17 U/L (13-35); Albumin/Globulin Ratio 1.18 Ratio (1.60-3.17); Alkaline Phosphatase 122 U/L (41-126); Blood Urea Nitrogen 13.5 mg/dL (9.0-27.0); Calcium 10.3 mg/dL (8.7-10.3); Chloride 104 mmol/L (96-109); Chol/HDL Ratio 5.46 Ratio; Globulin 3.4 g/dL (1.6-3.3); Glucose 194 mg/dL (70-110); LDL Cholesterol,Calculated 159.8 mg/dL (0.0-131.0); Potassium 4.3 mmol/L (3.5-5.5); Sodium 138 mmol/L (135-145); Total Bilirubin 0.4 mg/dL (0.3-1.2); Total Protein 7.4 g/dL (6.2-8.2)
== END | disposition home or self-care (01) ==
LOC: LABWHC1 08:44
PROVIDERS: ATTEND Family Medicine
DX: Z01.812 Encounter for preprocedural laboratory examination (principal); E11.65 Type 2 diabetes mellitus with hyperglycemia; E78.2 Mixed hyperlipidemia; G62.9 Polyneuropathy, unspecified; I20.9 Angina pectoris, unspecified; E55.9 Vitamin D deficiency, unspecified; M50.20 Other cervical disc displacement, unspecified cervical region; M48.02 Spinal stenosis, cervical region
CPT/HCPCS: 36415; 71046; 80053; 80061; 82306; 82607; 83036; 83880; 84443; 85025; 85610

== ENCOUNTER → 2024-01-06 | Outpatient (CLI) | payer OTHER | END | disposition home or self-care (01) | LOC: LABPAT 09:56 | PROVIDERS: ATTEND Orthopaedic Surgery | DX: Z01.812 Encounter for preprocedural laboratory examination (principal); M50.20 Other cervical disc displacement, unspecified cervical region; M48.02 Spinal stenosis, cervical region; Z22.322 Carrier or suspected carrier of Methicillin resistant Staphylococcus aureus | CPT/HCPCS: 86850; 86900; 86901; 87070 ==

== ENCOUNTER 2024-01-12 10:26 | Observation (INO) | payer OTHER ==
[2024-01-07 11:24] VITALS: BMI 32.8
--- NOTE | 2024-01-12 06:35 | P.HPOR ---
History of Present Illness H&P Date: 12/31/23 Chief Complaint: UE Paresthesias, radiculopathy. Cervical HNP with stenosis .D:Date: 12/31/23 : 10:36am .T:Title: *[facility] HISTORY AND PHYSICAL Age: 53 year Height: 5'6" Weight: 200 lbs BP:120/78 BMI: 32.28 kg/m2 Occupation: Unemployed VAS: 10 IMPRESSION: It was my pleasure to have seen and examined Vira. I reviewed the patient's clinical syndrome, physical findings, and imaging studies during the appointment today. It is my impression that the patient has a diagnosis of. 1. C5-7 herniated nucleus pulposus 2. Right upper extremity radiculopathy Spine Surgery Risk Review Ms. Rivera is presenting for evaluation of neck and bilateral upper extremity pain, right upper extremity numbness and tingling. It was my pleasure to have se en and examined Ms. Rivera. In our visit today we have had a chance to go over subjective complaints, physical examination findings and treatments including the natural course history without intervention and various interventional options. The patients imaging demonstrates: [facility]23 of CervicalSpine: Images reviewed with pt. This shows C5 -6 and C6-7 HNP with moderate to severe stenosis. There are cord signal changes that are happening at this levels. No fracture C0-1, C1-2 stable. XRayCervical multiview (Lateral, Flexion, Extension, AP, Oblique) [facility] and Cervical 2V (AP/LAT) taken on 05/19/23: Images reviewed with pt. Moderate multilevel spondylotic and degenerative changes with reversal of the normal lordosis. Mutlilevel diminished disc heights. Grade 1 anterolithesis C2 onto C3. Grade 1 retrolisthesis C5 onto C6. Vertebral body heights are preserved. Mulilevel bilateral foraminal stenosis. No acute osseous abnormalities. On physical exam, Ms. Rivera demonstrates: A sharp, ache-like pain throughout the neck that radiates down into the bilateral upper extremities from the shoulders down into the fingertips of both hands. The patient notes that her right upper extremity pain is associated with numbness and tingling. The patient states her symptoms worsen after all activity, which makes it very difficult for her to complete any of her regular activities of daily living. She reports experiencing severe sleep disturbances related to her ongoing pain and associated symptoms. She notes her symptoms have been progressively worsening ov er the last 2 to 3 weeks. I have explained to the patient that as their condition progresses it will cause further neurological deficits and eventual paralysis. Based on the patients imag ing, physical exam, and the rapid progression and disabling nature of their symptoms, at this time I recommend surgery in the form of a: C5-7 ANTERIOR CERVICAL DISCECTOMY AND FUSION. I discussed the risk and benefits of this procedure at length with Ms. Rivera. The patient agreed to considered pursuing the procedure abovementioned. Prior to surgery, she should follow up with her PCP (Cardio, ID, IM etc) for clearance. Questions were invited and answered, and the patient wishes to proceed as outlined below. Currently, I am recommendin.C5-7 ANTERIOR CERVICAL DISCECTOMY AND FUSION 2.Review of surgical risks and benefits as well as an educational packet on the proposed surgical procedure. Risks: All surgical procedures come with inherent risks, including those related to positioning, anesthesia, intraoperative findings, and postoperative complicatio ns. It is important to understand that surgery does not come with any guarantee of a successful outcome as complications and adverse events are always possible. The patient was given a handout in office today discussing the surgical procedure and risks associated with the intervention, both of which were discussed with the patient. These risks include but are not limited to the following: * Experiencing same, different or even worse symptoms in back, neck, arms, or legs compared to before surgery. Requiring further surgery or other forms of treatment presently or at some time in the future at same or other levels of the intended spine surgery. On an extreme but fortunately relatively rare basis severe complication such as blindness, stroke, heart attack, temporary and/or permanent nerve injury, paralysis, coma, or may occur, sometimes without known explanation. Surgical complications may include but are not limited to risk of infection, fluid accumulation in the surgical dissection site, including a seroma or hematoma, that requires additional surgery, wound drainage, bleeding, new numbness or weakness, vision changes/loss, spinal fluid leakage, non-healing and/or infected incision, headaches, difficulty or inability to swallow, hoarseness, hemopneumothorax, pneumothorax, impotence, retrograde ejaculation, vaginal dryness; injury to nerves, spinal cord, blood vessels, lymphatics or other vital organs (i.e., bowel injury, injury to the great vessels); heterotopic bone formation; complications related to the hardware such as screws, rods, cages including misplaced hardware, device failure, instrumentation at the wrong spine level, hardware fracture/breakage, or hardware loosening; vertebral failure of the spinal column above or below the newly placed hardware; retained surgical instrumentations or devices and the need for further surgery. * Medical risks of the planned spine surgery include but are not limited to generalized Infections to the whole body or local areas outside of the surgical site (sepsis), heart attack, bleeding, anaphylaxis, meningitis, seizure, epilepsy, hearing loss, burn hillman, laceration of the head or other areas of the body, bruising, hypersensitivity of the skin, bladder over distension; allergic reaction; shoulder injury related to positioning; fat, blood and air clots to other areas of the body like heart, lungs, brain; failure of internal organs such as lungs, kidneys, liver and excessive bleeding. If blood transfusions are necessary, note that transfusions may cause intolerance reactions such as anaphylaxis or other complex reactions. Despite best efforts, the results of spine surgery might not heal in terms of bone, soft tissues such as skin, fascia, ligaments, and joints. Additionally, in order to achieve best possible results, spine surgery may be carried out beyond the initially planned levels and involve decompression, fusion including insertion of hardware at levels other than the original intended area of surgical interest change some portions of the procedure in order to ensure the best possible outcomes. With spine surgery and spinal fusion, there are different off label uses of instrumentation (devices, implants and hardware) as well as biological substances (bone morphogenic proteins, demineralized bone matrix) as well as using extra bone from allograft sources (i.e. cadaver bone) or autograft (iliac crest bone, ribs, or the spine itself). The patient has been given information about these practices and their inherent risks and benefits. [facility] is an educational center that serves as a training facility for neurosurgical and orthopedic ASSEMBL[employer]IVER and Nursing students. Physician assistants are medically trained surgical providers who function in the outpatient, inpat ient, and operating room setting under the direct supervision of the attending surgeon. [facility] has multiple operating rooms with single and overlapping rooms running daily. They currently function under the required guidelines as produced by the [facility] Finance Committee with regards to the overlapping rooms and will continue to comply with changes to this policy as they occur. The requirements include and are complied with as follows: (1) the critical portions of the overlapping rooms will not occur at the same time, (2) the attending physician will be physically present during the critical portions of the procedure and immediately available during the entire case, and (3) a back-up attending is designated should the primary attending not be immediately available. The patient has had a chance to review all the listed information, has been given print outs detailing this information, and has had all his/her questions answered to their satisfaction. It was my pleasure to have seen and examined Ms. Rivera. In our visit today we have had a chance to go over my understanding of our patient's current condition, the natural course history without intervention and various interventional options. Questions were invited and answered, and the patient wishes to proceed as outlined above. I have seen and examined the patient for 25 minutes and we have spent more than 50% of the time in repeat and detailed counseling about the patient's condition, its natural course history with out and as much as can be predicted with surgery and re-review of various surgical treatment options. In conclusion, Ms. Rivera requested we proceed with the above suggested surgery and are willing to accept risks and limitations of the suggested surgery as nature of the disease process and our best attempts at treatment for the condition. Thank you again for allowing us to be part of your patient's care. Please don't hesitate to contact me if you have any further questions. FOLLOW UP: Post Procedure PLAN AT NEXT VISIT: AP/LAT x-rays of cervical spine PATIENT EDUCATION: Medications Reviewed: YES In our visit today Ms. Rivera and I have had a chance to go over my understanding of the patient's current condition, the natural course history without intervention and various interventional options. Questions were invited and answered, and the patient wishes to proceed as outlined above. I will be sure to keep you updated after Ms. Rivera returns here for further follow-up. Thank you again for your referral. Please do not hesitate to contact me if you have any further questions. Signed and authenticated by: Santiago Adkins [facility] [address] [place] [address] This message is confidential, intended only for the named recipient(s) and may contain information that is privileged or exempt from disclosure under applicable law. If you are not the intended recipient(s), you are notified that the dissemination, distribution or copying of this information is strictly prohibited. If you received this message in error, please notify the sender then delete this message. Past Medical History Past Medical History: Diabetes Mellitus, GERD/Reflux, Hyperlipidemia, Hypertension, Pulmonary Embolus (PE) Additional Past Medical History / Comment(s): Hx headaches. Hx PE in 2020. History of Any Multi-Drug Resistant Organisms: None Reported Past Surgical History: Section, Cholecystectomy, Orthopedic Surgery Additional Past Surgical History / Comment(s): Section X2, left shoulder surgery. Past Anesthesia/Blood Transfusion Reactions: No Reported Reaction Smoking Status: Former smoker - Past Family History Mother Family Medical History: Cancer, Diabetes Mellitus Additional Family Medical History / Comment(s): Breast cancer. A maternal aunt had breast cancer. Father Family Medical History: Cancer, Diabetes Mellitus, Deep Vein Thrombosis (DVT), Hypertension Additional Family Medical History / Comment(s): Colon cancer. Brother(s) Family Medical History: Deep Vein Thrombosis (DVT) Medications and Allergies Home Medications Medication Instructions Recorded Confirmed Type Amitriptyline HCl 50 mg PO HS 06/01/21 01/07/24 History Ferrous Sulfate [Iron] 325 mg PO DAILY 06/01/21 01/07/24 History Valsartan 160 mg PO DAILY 10/08/22 01/07/24 History methocarbamoL 1,000 mg PO TID 10/08/22 01/07/24 History Empagliflozin [Jardiance] 10 mg PO DAILY 11/07/22 01/07/24 History Insulin Aspart [NovoLOG Flexpen] 24 units SQ AC-TID 11/07/22 01/07/24 History Omeprazole [PriLOSEC] 40 mg PO DAILY 11/07/22 01/07/24 History ARIPiprazole [Abilify] 30 mg PO DAILY 03/13/23 01/07/24 History Gabapentin 300 mg PO TID 03/13/23 01/07/24 History Insulin Glargine,Hum.rec.anlog 60 units SQ TID 03/13/23 01/07/24 History [Lantus Solostar Pen] Propranolol HCl [Inderal LA] 160 mg PO DAILY 03/13/23 01/07/24 History busPIRone HCL [Buspirone HCl] 15 mg PO TID 03/13/23 01/07/24 History Acetaminophen Tab [Tylenol] 650 mg PO Q6H PRN 01/07/24 01/07/24 History Ergocalciferol [Vitamin D2 (1250 1,250 mcg PO TU 01/07/24 01/07/24 History Mcg = [id number] Iu)] Mirtazapine 30 mg PO HS 01/07/24 01/07/24 History Pioglitazone [Actos] 45 mg PO DAILY 01/07/24 01/07/24 History Rosuvastatin [Crestor] 10 mg PO DAILY 01/07/24 01/07/24 History Ziprasidone [Geodon] 20 mg PO DAILY 01/07/24 01/07/24 History Allergies Allergy/AdvReac Type Severity Reaction Status Date / Time No Known Allergies Allergy Verified 01/07/24 10:04 Physical Examination Osteopathic Statement: *. No significant issues noted on an osteopathic structural exam other than those noted in the History and Physical/Consult.
[~2024-01-12 10:26] MED LIST changes: -DEXAMETHASONE SOD PHOSPHATE 4 MG/ML 1 ML VIAL IV ONE; +GABAPENTIN 300 MG CAP PO PRN; -LACTATED RINGERS 1,000 ML IV SCH; -ONDANSETRON 4 MG/2 ML VIAL IVP ONE; -Pre Op ABX Message 1 EACH MISC MISCELLANE ONE; +TRANEXAMIC 1,000 MG/100ML-NACL 1,000 MG in SALINE 1 100ML.BAG IVPB PRN
[2024-01-12] MEDS: ACETAMINOPHEN TAB 500 MG TAB PO PRN (11:13)
[2024-01-12] MEDS: LACTATED RINGERS 1,000 ML IV SCH (11:15)
[2024-01-12] MEDS: LIDOCAINE 1% (10MG/ML) FOR IV START INTRADERMA PRN (11:15)
[2024-01-12 11:26] LABS: Glucose,Whole Blood 246 mg/dL (70-110)
[2024-01-12] MEDS: LIDOCAINE 1% (10MG/ML) FOR IV START INTRADERMA ONE (11:30)
[2024-01-12] MEDS: ONDANSETRON 4 MG/2 ML VIAL IVP PRN (11:40)
[2024-01-12] MEDS: INSULIN ASPART (NovoLOG) 100 UNIT/ML VIAL SQ ONE (11:40)
[2024-01-12 14:07] LABS: Glucose,Whole Blood 187 mg/dL (70-110)
[2024-01-12] MEDS ORDERED: KETAMINE HCL IN 0.9 % NACL 50 MG/5 ML SYRINGE ONE (14:18)
[2024-01-12] MEDS ORDERED: MIDAZOLAM 2 MG/2 ML VIAL ONE (14:18)
[2024-01-12] MEDS ORDERED: PHENYLEPHRINE 10 MG/ML VIAL ONE (14:18)
[2024-01-12] MEDS ORDERED: fentaNYL (PF) 50 MCG/ML 2 ML AMP ONE (14:18)
[2024-01-12] MEDS ORDERED: LIDOCAINE 1% INJ 10MG/ML (20 ML MDV) ONE (14:18)
[2024-01-12] MEDS ORDERED: SUCCINYLCHOLINE CHLORIDE 200 MG/10 ML VIAL IV ONE (14:18)
[2024-01-12] MEDS ORDERED: PROPOFOL 10 MG/ML 20 ML VIAL IV ONE (14:18)
[2024-01-12] MEDS ORDERED: TRANEXAMIC 1,000 MG/100ML-NACL PREMIX BAG ONE (14:18)
[2024-01-12] MEDS ORDERED: HYDROmorphone (PF) 1 MG/ML ONE (14:18)
[2024-01-12] MEDS: THROMBIN (BOVINE) 5,000 UNIT VIAL TOPICAL ONE (15:05)
--- NOTE | 2024-01-12 15:59 | P.OP ---
Date of Procedure: 01/12/24 Preoperative Diagnosis: 1. 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 BUE RADICULOPATHY 3. LUE WEAKNESS 4. BUE PARESTHESIAS 5. NECK PAIN Postoperative Diagnosis: 1. 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 BUE RADICULOPATHY 3. LUE WEAKNESS 4. BUE PARESTHESIAS 5. NECK PAIN Procedure(s) Performed: 1. C5-6 ANTERIOR CERVICAL ARTHRODESIS 2. C6-7 ANTERIOR CERVICAL ARTHRODESIS 3. ANTERIOR INSTRUMENTATION C5-7 4. INSERTION OF BIOMECHANICAL DEVICE C5-6 AND C6-7, CAGES X2 USE OF IONM USE OF IO MICROSCOPE Implants: -KELSIE CASCADIA CERVICAL INTERBODY 8MM AND 9MM 7 DEG, MED -KELSIE OZARK PLATE 42MM -14MM SCREWS -MAGNATOS -AUTOGRAFT Anesthesia: GETA Surgeon: Santiago Roque Auditor Appraiser #1: Sabas Maciel (WAS PRESENT AND ASSISTED WITH ALL ASPECTS OF THE CASE FROM POSITION TO CLOSURE) Estimated Blood Loss (ml): 25 IV fluids (ml): 1,200 Urine output (ml): 300 Pathology: none sent Condition: stable Disposition: PACU Indications for Procedure: Ms. Rivera is presenting for evaluation of neck and bilateral upper extremity pain, right upper extremity numbness and tingling. It was my pleasure to have seen and examined Ms. Rivera. In our visit today we have had a chance to go over subjective complaints, physical examination findings and treatments including the natural course history without intervention and various interventional options. The patients imaging demonstrates: MRI [facility]2023 of CervicalSpine: Images reviewed with pt. This shows C5 -6 and C6-7 HNP with moderate to severe stenosis. There are cord signal changes that are happening at this levels. No fracture C0-1, C1-2 stable. XRayCervical multiview (Lateral, Flexion, Extension, AP, Oblique) [facility] and Cervical 2V (AP/LAT) taken on 05/19/23: Images reviewed with pt. Moderate multilevel spondylotic and degenerative changes with reversal of the normal lordosis. Mutlilevel diminished disc heights. Grade 1 anterolithesis C2 onto C3. Grade 1 retrolisthesis C5 onto C6. Vertebral body heights are preserved. Mulilevel bilateral foraminal stenosis. No acute osseous abnormalities. On physical exam, Ms. Rivera demonstrates: A sharp, ache-like pain throughout the neck that radiates down into the bilateral upper extremities from the shoulders down into the fingertips of both hands. The patient notes that her r ight upper extremity pain is associated with numbness and tingling. The patient states her symptoms worsen after all activity, which makes it very difficult for her to complete any of her regular activities of daily living. She reports experiencing severe sleep disturbances related to her ongoing pain and associated symptoms. She notes her symptoms have been progressively worsening over the last 2 to 3 weeks. I have explained to the patient that as their condition progresses it will cause further neurological deficits and eventual paralysis. Based on the patients imaging, physical exam, and the rapid progression and disabling nature of their symptoms, at this time I recommend surgery in the form of a: C5-7 ANTERIOR CERVICAL DISCECTOMY AND FUSION. I discussed the risk and benefits of this procedure at length with Ms. Rivera. The patient agreed to considered pursuing the procedure abovementioned. Prior to surgery, she should follow up with her PCP (Cardio, ID, IM etc) for clearance. Questions were invited and answered, and the patient wishes to proceed as outlined below. Currently, I am recommendin.C5-7 ANTERIOR CERVICAL DISCECTOMY AND FUSION Description of Procedure: C5-7 ACDF PRE OP: The patient was seen and examined in the preoperative area. All preoperative protocols were followed. Informed consent was obtained, risks and benefits of the procedure were discussed at length. Risks including bleeding infection damage to the surrounding tissue and risk of reoperation were discussed with the patient. Risk of anesthesia up to and including was discussed with the patient. These are outlined in the risk review. They were willing to accept these risks and all the risks of surgery. The patient was given a weight-based dose of antibiotics in the form of 2 g Ancef. The patient was seen and evaluated by the anesthesia team who deemed them fit for surgery. The site was marked, the patient was willing to proceed with the procedure. POSITIONING: The patient was transferred to the operative suite by the Department of anesthesia. They were then drifted off to sleep by the department anesthesia and GETA was performed. The patient tolerated this well. Feliciano catheter was placed by nursing staff, a-traumatically. Once confirmation of lines and ventilation the patient was transferred to a Supine Brenden table very carefully. All bony prominences including wrists, elbows, axilla, chest, hips, and thighs, and feet were padded very well. Special attention was paid to the genitalia, and these were padded accordingly. SCDs were placed on bilateral lower extremities and were connected. Arms were well padded and placed at their side thumbs up. Once in position, again we confirmed good ventilation capabilities and that lines were running appropriately. The patients Cervical spine was then exposed. 1010s were placed outlining the incision site. Standard alcohol was used to clean the incision site and allowed to dry. C-arm was used to bio-zabrina the patient and confirm level for incision which was marked with a skin marker. Operative briefing was performed with all teams and everyone in agreement to proceed. The patient was then prepped and draped in a normal sterile fashion. Timeout was then performed, and all parties agreed with the procedure to be performed. DISSECTION: Transverse skin incision was then made on the right side of the patient's neck 3 cm and dissection taken down to the platysma which was split transversely. Sub platysma flap was made, and interval identified between SCM and medial structures. Omohyoid was visualized and protected. Blunt dissection taken down to the anterior cervical fascia which was identified. Blunt probe was then placed and lateral image taken which confirmed levels for operation. These levels were then marked with a bovi. Subperiosteal dissection of the longissimus muscles were then done over these levels identifying uncovertebral joints bilaterally. Retractor was then placed deep to these muscles and held in place with a bed arm. DISCECTOMY, DECOMPRESSION AND CAGE PLACEMENT: Starting at C6-7, Porter pins were placed into C6 and C7 and gentle distraction taken out over the levels. Yamile rongeur used to remove disc material. Operating microscope brought in for visualization. Complete discectomy performed at this level with curette, rongure and pituitary. High speed kylie used to remove osteophytes anteriorly and posteriorly until PLL was identified. 6-0 up curette then used to identify the canal and resect the PLL. 2-0 and 3-0 Kerrison used then to remove PLL and disc herniation and performed b/l foraminotomies. Once good decompression was accomplished, meticulous hemostasis was performed. Sizers were then placed under lateral fluoroscopy until the desired height and lordosis. Cage was then selected, packed with autograft and allograft and placed under lateral imaging. Once in good position it was tested and stable. Motors run before and after cage placement were stable. The wound was irrigated, and autograft placed lateral to the cage anteriorly for fusion. Porter pin was then removed from C7 and placed into C5. Gentle distraction taken out over C5-6 now. Complete discectomy done at C5-6 as described including decompression, b/l foraminotomies and PLL resection. Burring of endplates was minimal, osteophytes removed as described. Spacers were then sized and placed under lateral imaging. Cage selected, packed with graft and placed under lateral images. Once in position, meticulous hemostasis performed, and motors remained stable before and after cage placement. AP image confirmed good placement of cages. Wound was irrigated. ANTERIOR INSTRUMENTATION: A separate, non-integrated plate was then selected and sized under lateral image. The plate was then placed with screws. Fixed screws drilled into C7 b/l and screws placed. Then into C6 and finally C5 with variable screws. All locking mechanisms were set, and all screws had good purchase. Final AP and lateral images taken confirmed good placement of hardware and good reduction and mormonism of height. CLOSURE: The wound was then irrigated copiously with NSS. Surgicel placed deep in the wound. A deep drain placed out a separate incision and sewed into place. Layered closure then performed with 3-0 Vicryl in the platysma and subQ tissue. 4-0 Strata fix in the subcuticular tissue. The wound was then cleaned, and dried and skin glue placed. Once glue dried on Opifoam was placed. DISPOSITION: The patient was then transferred back to their hospital bed a-traumatically. The drain continued to hold suction. They were placed in a soft collar. They we re then awakened by the department of anesthesia having tolerated the procedure well without complications.
[2024-01-12] MEDS ORDERED: HYDROmorphone 0.5 MG/0.5 ML SYRINGE IVP PRN (16:15)
[2024-01-12] MEDS ORDERED: HYDROcodone/APAP 5-325MG 1 EACH TAB PO PRN (16:15)
[2024-01-12] MEDS ORDERED: MAGNESIUM HYDROXIDE 2,400 MG/30 ML CUP PO PRN (16:15)
--- NOTE | 2024-01-12 16:21 | FL ---
EXAMINATION TYPE: FL guidance operating room, XR cervical spine limited Intraoperative/procedural flu oroscopic services were provided. Total fluoroscopy time is 0.5 seconds with a total of 4 submitted i mages to PACS. Please see the operative/procedural note for further details. DAP: 0.2603 Gycm2
[2024-01-12] MEDS: HYDROmorphone 0.5 MG/0.5 ML SYRINGE IVP PRN (16:27)
[2024-01-12] MEDS: droPERidol 5 MG/2 ML VIAL IVP PRN (16:48)
[2024-01-12 16:58] LABS: Glucose,Whole Blood 156 mg/dL (70-110)
[2024-01-12] MEDS: ONDANSETRON 4 MG/2 ML VIAL IVP ONE (18:52)
[2024-01-12] MEDS: DEXAMETHASONE SOD PHOSPHATE 4 MG/ML 1 ML VIAL IV ONE (18:52)
[2024-01-12] MEDS: ACETAMINOPHEN TAB 325 MG TAB PO SCH (19:10)
[2024-01-12 20:26] LABS: Glucose,Whole Blood 177 mg/dL (70-110)
[2024-01-12] MEDS ORDERED: NON FORMULARY DRUG (Gabapentin [Gabapentin] 600 MG Tablet) PO SCH (22:00)
[2024-01-12] MEDS: CYCLOBENZAPRINE 5 MG TAB PO PRN (22:33)
[2024-01-12] MEDS: busPIRone HCl 5 MG TAB PO SCH (22:33)
[2024-01-12] MEDS: AMITRIPTYLINE HCL 50 MG TAB PO SCH (22:33)
[2024-01-12] MEDS: HYDROcodone/APAP 10-325MG 1 EACH TAB PO PRN (22:34)
[2024-01-12] MEDS: MIRTAZAPINE 15 MG TAB PO SCH (22:34)
[2024-01-12] MEDS: GABAPENTIN 300 MG CAP PO SCH (22:38)
[2024-01-12] MEDS: HYDROmorphone 1 MG/ML 1 ML SYRINGE IVP PRN (23:57)
--- NOTE | 2024-01-13 01:11 | CT ---
EXAM: CT Cervical Spine Without Intravenous Contrast CLINICAL HISTORY: ITS.REASON CT Reason: s/p C5-C7 ACDF TECHNIQUE: Axial computed tomography images of the cervical spine without intravenous contrast. CTDI is 4.3 mGy and DLP is 130.4 mGy-cm. This CT exam was performed using one or more of the following dose reduction techniques: automated exposure control, adjustment of the mA and/or kV according to patient size, and/or use of iterative reconstruction technique. COMPARISON: No relevant prior studies available. FINDINGS: Status post ACDF C5-C7. Vertebrae: No acute fracture. Discs/spinal canal/neural foramina: degenerative changes. Soft tissues: Soft tissue emphysema in the deep neck space. Prevertebral effusion measuring 11 mm in thickness. Soft tissue emphysema along the anterior neck. IMPRESSION: Status post ACDF. Prevertebral effusion measuring 11 mm in thickness. Likely seroma or hematoma. No significant airway narrowing.
[2024-01-13 06:15] LABS: Glucose,Whole Blood 294 mg/dL (70-110)
[2024-01-13] MEDS: PANTOPRAZOLE 40 MG TABLET PO SCH (06:17)
[2024-01-13 07:34] LABS: Basophils % (A) 0 %; Eosinophils # (A) 0.1 k/uL (0-0.7); Eosinophils % (A) 1 %; HCT 40.6 % (34.0-46.0); Lymphocytes # (A) 2.4 k/uL (1.0-4.8); Lymphocytes % (A) 22 %; MCH 29.8 pg (25.0-35.0); MCHC 32.1 g/dL (31.0-37.0); MCV 92.8 fL (80.0-100.0); Monocytes # (A) 0.5 k/uL (0-1.0); Monocytes % (A) 5 %; Neutrophils # (A) 7.7 k/uL (1.3-7.7); Neutrophils % (A) 70 %; Platelet Count 252 k/uL (150-450); RBC 4.37 m/uL (3.80-5.40); RDW 13.3 % (11.5-15.5)
[2024-01-13] MEDS: ATORVASTATIN 20 MG TAB PO SCH (07:59)
[2024-01-13] MEDS: SENNOSIDES-DOCUSATE SODIUM 1 EACH TAB PO SCH (07:59)
[2024-01-13] MEDS: DAPAGLIFLOZIN PROPANEDIOL 5 MG TABLET PO SCH (07:59)
[2024-01-13] MEDS: INSULIN ASPART (NovoLOG) 100 UNIT/ML VIAL SQ SCH (08:00)
[2024-01-13] MEDS: ERGOCALCIFEROL 1,250 MCG (50,000 IU) CAPSULE PO SCH (08:01)
[2024-01-13] MEDS: FERROUS SULFATE 325 MG TAB PO SCH (08:01)
[2024-01-13] MEDS: ARIPiprazole 15 MG TAB PO SCH (08:01)
[2024-01-13] MEDS: PROPRANOLOL LA 80 MG CAP.SA.24H PO SCH (08:01)
[2024-01-13] MEDS: VALSARTAN 160 MG TAB PO SCH (08:02)
[2024-01-13] MEDS: methocarbamoL 500 MG TAB PO SCH (08:02)
[2024-01-13] MEDS: PIOGLITAZONE 45 MG TAB PO SCH (08:02)
[2024-01-13] MEDS: ZIPRASIDONE 20 MG CAP PO SCH (08:02)
[2024-01-13 08:23] VITALS: RESP 18
--- NOTE | 2024-01-13 08:26 | P.CONS ---
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 with active medical history of type 2 diabetes, hypertension, hyperlipidemia, chronic lower back pain, chronic neuropathy, who is known to have history of pulmonary embolism off anticoagulation also severe GERD, chronic history of headache, type 2 diabetes insulin-dependent, mild overweight, depression and anxiety who was scheduled for elective surgery for C5-7 ACDF, apparently has been evaluated for neck and bilateral upper extremity pain with right upper extremity numbness and tingling sensation MRI of the cervical spine from June last year revealed C5-6 and C6/7 HNP with moderate to severe stenosis there are cord signal changes that are happening at this level with no sign of fracture. Vertebral body height are preserved with multilevel bilateral foraminal stenosis with no acute osseous abnormality. With her persistent symptoms with failure to outpatient, physical therapy and epidural she was scheduled for elective C5-7 anterior cervical base ectomy and fusion. Patient was cleared for surgery by her primary care Dr. Tapia had her surgery on 01/13 2024 was admitted to the floor afterward feeling well and is feeling quite good pain discomfort otherwise hemodynamically stable. REVIEW OF SYSTEMS: CONSTITUTIONAL: Well-developed no acute respiratory distress. Wearing cervical spine collar EYES: No icterus sclerae, no conjunctivitis. EARS, NOSE, MOUTH, THROAT, and FACE: No sore throat, lymphadenopathy, carotid bruits or deformity. RESPIRATORY: No SOB cough or wheezes. CARDIOVASCULAR: No CP, Palpitation, PND, Orthopnea, or angina. GASTROINTESTINAL: No Abd pain, Nausea or vomiting, no Diarrhea or constipation, No GI Bleed, no distention or masses. GENITOURINARY: Negative for Hematuria or UTI, no kidney stones. INTEGUMENT/BREAST: Generalized myalgia and slight weakness in upper extremity. HEMATOLOGIC/LYMPHATIC: Negative for bleed or purpura. MUSCULOSKELTAL: Generalized arthralgia and myalgia. NEURLOGICAL: No LOC, Sz or syncope, blurred vision dizziness or abnormality. Still have slight weakness in the right upper extremity compared to the left side.. BEHAVIORAL/PSYCH: Negative. ENDOCRINE: Negative. PHYSICAL EXAMINATION: General Appearance: Alert, cooperative, no distress, appears stated age. Neck HEENT: Cervical spine collar with anterior incision., no lymphadenopathy, no thyroid enlargement, no carotid bruits. Lungs: Clear to auscultation without crackles or wheezes no rhonchi, no deformity. Chest Wall: Chest wall normal expansion with deep inspiration no tenderness and no deformity was found on exam, no costochondral pain or discomfort. Heart: Regular rate and rhythm, S1, S2 normal, no murmur, rub or gallop. Back: Symmetric, no curvature, ROM normal, no CVA tenderness. Abdomen: Soft, non-tender, bowel sounds active all four quadrants, no masses, no organomegaly. Extremities: Extremities normal, atraumatic, no cyanosis or edema. Pulses: 2+ and symmetric. Skin: Skin color, texture, tugor normal, no rashes or lesions. Neurologic: Alert oriented x3 cranial nerves II through XII intact, no motor deficit, no abnormal balance or gait. ASSESSMENT AND PLAN: _Post anterior C5-7 ACDF: Continue to watch patient hemodynamic status, continue to watch and treat her pain, resume home meds, GI, pulmonary and DVT prophylaxis protocol. _Type 2 diabetes: Resume NovoLog 24 units AC meals along with Lantus 60 units daily. She is on Actos 45 units a day as well and Jardiance 10 mg daily and apparently was on Mounjaro which will be held for now. Accu-Chek with sliding scale coverage will be done her Lantus was order at 60 units 3 times daily which is around should be done either in the morning or at bedtime. _Hypertension: Has been on Inderal LA 160 mg a day and losartan 160 mg daily resume medication. _Hyperlipidemia: Remain on Crestor 10 mg a day. _Chronic history of migraine: Currently has been on prophylaxis medication management which is enterology on exam. Continue Robaxin as well and amitriptyline. _Chronic neuropathy: Has been on gabapentin 300 mg 3 times a day along with amitriptyline 50 mg at bedtime. _Chronic depression: Remain on BuSpar 15 mg 3 times daily, Geodon 20 mg daily still on mirtazapine 30 mg at bedtime amitriptyline 50 mg at bedtime and Abilify 30 mg daily _Chronic iron deficiency anemia: Continue iron supplement on regular basis and still on omeprazole. _GERD/GI prophylaxis: Resume omeprazole 40 mg daily. DVT prophylaxis: Early mobilization knee-high YARIEL hose. CODE STATUS: Full code. Dr. Roque thank you much for the consult more than happy to see this patient along with you in the hospital if I can be any further help to please let me know. Past Medical History Past Medical History: Diabetes Mellitus, GERD/Reflux, Hyperlipidemia, Hypertension, Pulmonary Embolus (PE) Additional Past Medical History / Comment(s): Hx headaches. Hx PE in 2020. History of Any Multi-Drug Resistant Organisms: None Reported Past Surgical History: Section, Cholecystectomy, Orthopedic Surgery Additional Past Surgical History / Comment(s): Section X2, left shoulder surgery. Past Anesthesia/Blood Transfusion Reactions: No Reported Reaction Past Psychological History: Anxiety, Depression, Panic Disorder Smoking Status: Former smoker Past Alcohol Use History: None Reported Additional Past Alcohol Use History / Comment(s): Quit smoking around 2017. Past Drug Use History: None Reported - Past Family History Mother Family Medical History: Cancer, Diabetes Mellitus Additional Family Medical History / Comment(s): Breast cancer. A maternal aunt had breast cancer. Father Family Medical History: Cancer, Diabetes Mellitus, Deep Vein Thrombosis (DVT), Hypertension Additional Family Medical History / Comment(s): Colon cancer. Brother(s) Family Medical History: Deep Vein Thrombosis (DVT) Medications and Allergies Home Medications Medication Instructions Recorded Confirmed Type Amitriptyline HCl 50 mg PO HS 06/01/21 01/07/24 History Ferrous Sulfate [Iron] 325 mg PO DAILY 06/01/21 01/07/24 History Valsartan 160 mg PO DAILY 10/08/22 01/07/24 History methocarbamoL 1,000 mg PO TID 10/08/22 01/07/24 History Empagliflozin [Jardiance] 10 mg PO DAILY 11/07/22 01/07/24 History Insulin Aspart [NovoLOG Flexpen] 24 units SQ AC-TID 11/07/22 01/07/24 History Omeprazole [PriLOSEC] 40 mg PO DAILY 11/07/22 01/07/24 History ARIPiprazole [Abilify] 30 mg PO DAILY 03/13/23 01/07/24 History Gabapentin 300 mg PO TID 03/13/23 01/07/24 History Insulin Glargine,Hum.rec.anlog 60 units SQ TID 03/13/23 01/07/24 History [Lantus Solostar Pen] Propranolol HCl [Inderal LA] 160 mg PO DAILY 03/13/23 01/07/24 History busPIRone HCL [Buspirone HCl] 15 mg PO TID 03/13/23 01/07/24 History Acetaminophen Tab [Tylenol] 650 mg PO Q6H PRN 01/07/24 01/07/24 History Ergocalciferol [Vitamin D2 (1250 1,250 mcg PO TU 01/07/24 01/07/24 History Mcg = 94490 Iu)] Mirtazapine 30 mg PO HS 01/07/24 01/07/24 History Pioglitazone [Actos] 45 mg PO DAILY 01/07/24 01/07/24 History Rosuvastatin [Crestor] 10 mg PO DAILY 01/07/24 01/07/24 History Ziprasidone [Geodon] 20 mg PO DAILY 01/07/24 01/07/24 History Allergies Allergy/AdvReac Type Severity Reaction Status Date / Time No Known Allergies Allergy Verified 01/12/24 10:57 Physical Exam Vitals: Vital Signs Temp Pulse Pulse Pulse Resp BP BP 01/12/24 19:12 97.9 F 74 70 19 146/81 01/12/24 18:15 75 16 144/78 01/12/24 17:45 73 16 145/75 01/12/24 17:30 69 16 147/81 01/12/24 17:15 72 16 160/79 01/12/24 17:02 71 16 153/75 01/12/24 16:47 76 16 158/79 01/12/24 16:32 75 16 153/74 01/12/24 16:17 97.4 F L 79 16 136/82 01/12/24 11:08 97.2 F L 90 16 143/78 Pulse Ox 01/12/24 19:12 83 L 01/12/24 18:15 95 01/12/24 17:45 96 01/12/24 17:30 97 01/12/24 17:15 96 01/12/24 17:02 99 01/12/24 16:47 99 01/12/24 16:32 98 01/12/24 16:17 96 01/12/24 11:08 99 Intake and Output 01/12/24 01/12/24 01/12/24 06:59 14:59 22:59 Intake Total 1450 500 Output Total 250 Balance 1450 250 Intake: IV 1450 500 Output: Urine 225 Estimated Blood Loss 25 Other: Weight 90.8 kg 90.8 kg Results CBC & Chem 7: 01/13/24 05:25 Labs: Abnormal Lab Results - Last 24 Hours (Table) 01/12/24 01/12/24 01/12/24 Range/Units 11:14 14:04 16:56 POC Glucose (mg/dL) 246 H 187 H 156 H (70-110) mg/dL 01/12/24 Range/Units 20:25 POC Glucose (mg/dL) 177 H (70-110) mg/dL
[2024-01-13] MEDS ORDERED: HYDROcodone/APAP 5-325MG 1 EACH TAB PO PRN (08:46)
--- NOTE | 2024-01-13 09:09 | P.PN ---
Subjective Progress Note Date: 01/13/24 Principal diagnosis: 1. C5-7 herniated nucleus pulposus 2. Right upper extremity radiculopathy Patient seen and examined this morning. Patient is sitting up in chair at bedside. She does report anterior cervical pain as well as bilateral shoulder pain. Medications have been adjusted. Patient does report improvement of her right upper extremity radiculopathy since the procedure. Surgical incision to the anterior cervical spine, dressing is clean dry and intact. Soft cervical collar is in place. Informed patient that physical therapy will in to work with her today. Patient verbalizes understanding. No acute concerns at this time. Objective - Vital Signs Vital signs: Vital Signs Temp 97.7 F 01/13/24 07:40 Pulse 81 01/13/24 07:40 Resp 18 01/13/24 07:40 BP 125/79 01/13/24 07:40 Pulse Ox 93 L 01/13/24 07:40 FiO2 Intake & Output 01/12/24 01/13/24 01/13/24 18:59 06:59 18:59 Intake Total 1950 Output Total 250 Balance 1700 Weight 90.8 kg 90.8 kg Intake: IV 1950 Output: Urine 225 Estimated Blood Loss 25 Other: # Voids 2 - Exam Physical Examination General: The patient is awake and alert, in no acute distress Skin: Skin is warm and dry with no obvious rashes or lesions. Surgical incision to the anterior cervical spine, dressing is clean dry and intact. Eye: Pupils are equal, round and reactive to light, extra-ocular movements are intact; there is normal conjunctiva bilaterally. Neck: The neck is supple, there is mild tenderness and limited range of motion due to surgical procedure. Soft cervical collar is intact. Cardiovascular: There is a regular rate and rhythm. No murmur, rub or gallop is appreciated. Respiratory: Respirations are non-labored, breath sounds are equal. Gastrointestinal: Soft, non-distended, non-tender abdomen. Back: There is no tenderness to palpation in the midline, paralumbar, para thoracic or buttocks region. There is no obvious deformity . Musculoskeletal: ROM limited secondary to pain and stiffness from surgical procedure. Muscle strength in all major muscle groups of bilateral upper extremities 5/5, bilateral lower extremities 5/5. Neurological: CN 2-12 intact. There are no obvious motor or sensory deficits. Movement and coordination equal and intact. Sensory exam to light touch intact C5-T1 and intact from L2-S1. Reflexes 2/4 in bilateral upper and lower extremities. Negative Hoffmans, babinski, and clonus signs. Psychiatric: Cooperative, appropriate mood & affect, normal judgment. - Labs CBC & Chem 7: 01/13/24 05:25 Labs: Abnormal Lab Results - Last 24 Hours (Table) 01/12/24 01/12/24 01/12/24 Range/Units 11:14 14:04 16:56 WBC (3.8-10.6) k/uL POC Glucose (mg/dL) 246 H 187 H 156 H (70-110) mg/dL 01/12/24 01/13/24 01/13/24 Range/Units 20:25 05:25 06:11 WBC 11.0 H (3.8-10.6) k/uL POC Glucose (mg/dL) 177 H 294 H (70-110) mg/dL Assessment and Plan Assessment: Postop day 1: C3-C5 ACDF 1. C5-7 herniated nucleus pulposus 2. Right upper extremity radiculopathy Plan: -Appreciate bank consultant and team management. -Activity: Ambulate QID, OOB all meals, up and about, limit lifting bending twisting to less than 5 lbs. Use walker or cane if needed for stability. -Daily PT/OT, increase ambulation strength and balance. -Soft cervical collar at all times, may remove for showers. -Pain control: Adequate at this time -Meds: reviewed -GI ppx: senna, Miralax -DVT PPX: OK to restart Heparin tonight -Hygiene: Shower today. Maintain dressing clean and dry. -Encourage IS 10x/hr -Dispo: Anticipate discharge home later today versus tomorrow with homecare *I reviewed and discussed this case with my attending Dr. Roque, whom has reviewed this chart and films and is in agreement with assessment and plan of care as outlined above. I have personally seen and examined the patient, performed the documentation and the assessment and plan as written. Number of minutes spent on the visit: 20m.
[2024-01-13] MEDS: NON FORMULARY DRUG (Insulin Glargine,Hum.Rec.Anlog [Lantus Solostar Pen] 100 UNIT/ML Insul SQ SCH (10:09)
[2024-01-13 11:17] LABS: Glucose,Whole Blood 248 mg/dL (70-110)
[2024-01-13 14:36] LABS: African American GFR (CKD) >90 (>60 ml/min/1.73 sqM); Anion Gap 8 mmol/L; Blood Urea Nitrogen 10 mg/dL (7-17); Calcium 9.6 mg/dL (8.4-10.2); Carbon Dioxide 23 mmol/L (22-30); Chloride 104 mmol/L (98-107); Glucose 194 mg/dL (74-99); Non-African American GFR(CKD) >90 (>60 ml/min/1.73 sqM); Sodium 135 mmol/L (137-145)
[2024-01-13 14:55] VITALS: BP 105/69; PULSE 91; TEMP 97.9
--- NOTE | 2024-01-13 15:36 | P.DS ---
Providers Date of admission: 01/12/24 16:05 Expected date of discharge: 01/13/24 Attending physician: Santiago Roque DO Consults: 01/12/24 16:15 Consult Physician Routine Consulting Provider: Brian Garsia Reason/Comments: medical management s/p C5-C7 ACDF Do you want consulting provider notified?: Yes Primary care physician: Deja Tapia [facility] Course: Date of admission: 01/12/2024 Date of discharge: 01/13/2024 Admission diagnosis: 1. 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 BUE RADICULOPATHY 3. LUE WEAKNESS 4. BUE PARESTHESIAS 5. NECK PAIN Discharge diagnosis: Same Attending physician: Dr. Roque Surgical procedures: C5-C7 ACDF Brief history: Patient is a 53-year-old female with a history of C5-C6 and C6-C7 herniated nucleus pulposus with stenosis; lower extremity weakness and bilateral upper extremity radiculopathy and paresthesias. At this point patient has failed conservative treatment measures and has opted to proceed with a elective C5-C7 ACDF. Hospital course: Details of patient's surgery can be found in operative report. Patient tolerated the procedure well and was subsequently transported to orthopedic floor. Patient's orthopeidc and medical care was provided daily. Patient had daily laboratory tests performed for evaluation of overall blood counts. Patient had daily physical therapy to include strengthening range of motion as well as education with walker ambulation. Patient was noted to have a relatively uneventful postoperative course. Patient reported satisfactory pain control with oral pain medications by postoperative day 1. Patient showed satisfactory progress with physical therapy. Patient moved steadily through the program and had no difficulty meeting the goals by postoperative day 1. Given patient's otherwise satisfactory course and having met physical therapy goals, plan is to discharge patient home on postoperative day 1. Discharge condition/disposition: Patient will be discharged home in stable condition. Discharge medications: Instructions are given on resumption of patient's normal daily medications per primary care recommendation, in addition patient will be prescribed Ruth; senna; Duricef; gabapentin; Flexeril Spine Discharge and Recovery Instructions Date of Surgery: 01/12/2024 Diagnosis: 1. 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 BUE RADICULOPATHY 3. LUE WEAKNESS 4. BUE PARESTHESIAS 5. NECK PAIN Procedure: C5-C7 ACDF Medications: See medication list All medication refills should be obtained through your primary care doctor or your clinic spine surgeon. Please discuss prescription refills at your follow up appointment. Do not call the hospital for medication refills. Dressing: Leave your dressing in place for a total of 5 days post operatively. Then you may remove your dressing and leave open to air. Keep the area clean and if not able to keep area clean, then cover with sterile gauze and tape. Showering: You may shower 3 days after your procedure allowing soap and water to run over incision. Do not scrub. Do not soak. Blot dry. Follow up: Please confirm a follow up appointment with your surgeon 3 weeks post operativel y. Please make an appointment to follow up with your PCP in 1-2 weeks after surgery for evaluation `3 phase, 3-week plan POST OP WEEKS 1-3 1. Lifting/carrying/pushing/pulling limited to less than 5 pounds. 2. Do not sit for longer than 15 minutes at one time. Get up and walk around. Prolonged sitting is NOT advised. If you lay down, see if you can tolerate laying down on you front (belly side) 3. Walk for periods of 15 minutes = 1 mile but no longer; do it multiple times times each day. 4. Ice your low back after activity. POST OP WEEKS 3-6 1. Lifting limited to less than 20 pounds. 2. Do not sit for longer than 30 minutes at a time. Frequently change positions. Use a sit-to stand workstation or take frequent breaks from sitting if you have returned to work. 3. Walk for 30 minutes each day. If possible, do these three or more times a day POST OP WEEKS 6+ At your 6-week appointment we will give you a physical therapy referral to focus on a core stabilization and strengthening program. You should also work on leg & buttock strengthening, hamstring & quadriceps stretching, and continue a low impact aerobic activity program such as swimming, walking, or riding a stationary bicycle. During the initial 6 weeks after your surgery, you are at the highest risk of re-injuring your spine. You should generally avoid BLTs (bending, lifting and twisting combination motions) and follow the above guidelines to reduce the chance of reinjury. You can anticipate post op appointments in our office at approximately 3 weeks and 6 weeks after your surgery. INCISION CARE: If your incision is not draining you do NOT need to cover it with a dressing. Keep your incision clean, dry and intact. In most cases, we apply skin glue, cate or sutures to the incision at the time of surgery. This will be like a crust or have the appearance of a scab and will fall off in time on its own. The stitches or cate need to be removed at 3 weeks post op appointment. You may begin to shower 3 days after surgery (this allows the glue to galloway well). However, please avoid scrubbing the incision site or peeling off any of the skin glue. This will ensure optimal healing of your incision. Also, during this time avoid soaking the incision area in water - this includes swimming pools, hot tubs or baths. No ointments, lotions or oils on the incision until your surgeon allows. Leave cate, sutures or glue in place. Neurological dysfunction that comes on suddenly can also be a sign of a stroke. Below some common symptoms of a stroke are listed: B - balance difficulty such as sudden onset walking or leaning to one side - NEW E - eye problem such as sudden double vision or trouble seeing on one side - NEW F - Facial weakness or numbness on one side - NEW A - Arm or leg weakness or numbness on one side - NEW S - Slurred speech or difficulty with word finding - NEW T - Time is BRAIN! Call 911 as soon as you recognize these symptoms Diet: Consume a regular diet rich in vegetables and lean protein such as chicken or fish. You should consume in a ratio of approximately 20% fats|40% carbohydrates|40%protein. Vegetables, sweet potatoes, brown rice or quinoa are examples of good carbohydrates. Chips, white bread, cookies and sweets/sugar are examples of bad carbohydrates. Limit your bad carbs, go wild with good carbs. 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 (1) Get Active. Physical activity can help people lose weight, control high bl ood pressure and cholesterol, feel emotionally better, and sleep better. (2) Control Cholesterol. Avoid a diet high in saturated fat, trans fat, & cholesterol. Limit whole milk & cream, ice cream, butter, egg yolks, processed meats (like sausage and hot dogs), and fatty meats. Choose healthy foods that are low in saturated fat, trans fat and cholesterol which include: Fruits and vegetables, fiber rich grain products (like whole grain pasta and brown rice), lean meat such as chicken, fish, nuts, seeds, and legumes. (3) Eat Better. Eat small portions. Shop at the grocery with a list and do not stray from it. Tips for a healthy diet include: Limit sodium intake to less than 1500mg daily, avoid prepackaged, processed, and fast foods, choose a diet rich in fruits, vegetables, and whole grain, high fiber foods, and limit saturated & cholesterol in your diet. (4) Manage Blood Pressure. If you have high blood pressure, you should have a cuff at home so that you can check your blood pressure regularly. Be sure you have a good cuff. An arm one is generally better than a wrist one. Bring the cuff to a doctor's appointment to validate that the measurements that your cuff are taking are accurate. Take your blood pressure twice daily when you are sitting down and relaxing. Record the numbers in a log and bring this log with you to your doctors' appointments. (5) Lose Weight if your BMI is above 25. A healthy BMI is between 19-25. To calculate Your BMI, you may use a Standard BMI Calculator on the NIH BMI website: <www.nhlbi.nih.gov/guidelines/obesity/BMI/bmicalc.htm>. Weigh oneself daily. If you are overweight, set a goal to lose weight. A pound a week loss if needed is a good target. (6) Reduce Blood Sugar. Limit foods and liquids with "added sugars." (Added sugars include sucrose, fructose, glucose, maltose, dextrose, high fructose corn syrup, corn syrup, concentrated fruit juice and honey). (7) Stop Smoking. If you smoke, quitting smoking is one of the best things that you can do for your health. Smoking increases your risk of heart attack, stroke, and peripheral vascular disease, which is a build-up of plaque in your arteries. Please discard all the cigarettes and lighters in your house. Have a plan for what you will do when you have the urge to smoke. Direct and second- hand smoke shortens your life as well as the lives of your family, friends and others around you. For your health and the health of those around you, please consider quitting! Proper Bending Body Mechanics: Maintain a wide stance with one foot slightly in front of the other. Keep your back straight. Bend utilizing the strength in your hips and knees. Do not bend at the waist. Maintain the lifted object at your waist-level close to your body. Avoid lifting weight that causes immediately pain or pain anywhere in the body afterwards. Smoking/Nicotine If there was ever one thing that you could do to increase your overall health, decrease your risk of cardiovascular problems by about 39% the second you make the choice, it is to STOP SMOKING. Your body's most instant gratification is the second you stop smoking. We have all heard the studies, read the articles but it is true, smoking is extremely bad for your overall health, and moreover it is detrimental to your bone health. Nicotine, IN ANY FORM, kills bone cells, prevents your body from healing fractures, and significantly prolongs healing after surgery. In spine surgery specifically, it increases your risk of not healing your bones to create a fusion and increases your risk of having a revision surgery due to this up to 60%. I know it is hard. I know it feels impossible. But there are ways. Take control of your life. We are here to help you through it. And when you are ready, ask us and we can direct you to help if you desire. Use the START Plan to Quit Smoking (please visit the Helpguide.org website listed below for more information): S = Set a quit date. Choose a date within the next 2 weeks, so you have enough time to prepare without losing your motivation to quit. If you mainly smoke at work, quit on the weekend, so you have a few days to adjust to the change. T = Tell family, friends, and co-workers that you plan to quit. Let your friends and family in on your plan to quit smoking and tell them you need their support and encouragement to stop. Look for a quit gianluca who wants to stop smoking as well. You can help each other get through the rough times. A = Anticipate and plan for the challenges you'll face while quitting. Most people who begin smoking again do so within the first 3 months. You can help yourself make it through by preparing ahead for common challenges, such as nicotine withdrawal and cigarette cravings. R = Remove cigarettes and other tobacco products from your home, car, and work. Throw away all your cigarettes (no emergency pack!), lighters, ashtrays, and matches. Wash your clothes and freshen up anything that smells like smoke. Shampoo your car, clean your drapes and carpet, and steam your furniture. T = Talk to your doctor about getting help to quit. Your doctor can prescribe medication to help with withdrawal and suggest other alternatives. If you can't see a doctor, you can get many products over the counter at your local pharmacy or grocery store, including the nicotine patch, nicotine lozenges, and nicotine gum. Resources for Quitting Smoking: <https://www.[place].gov/documents /[facility]/Quit_Tobacco_Resources_for_patients_313480_7.pdf> Supplementation: Take recommended dosages of Vitamin D and Calcium to help fortify your bones and help them to heal. See your health maintenance packet for dosages and recommended levels. DVT/VTE prophylaxis: You will be given compression stockings from the hospital. Wear these daily for the first two weeks after surgery. You may take them off at night. You may be prescribed a medication to help thin your blood. Take this as directed. If you are not prescribed this medication, early and frequent ambulation has been shown to be the best prophylaxis to deep vein thrombosis and sequelae related to this event. Assessment: 1. 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 BUE RADICULOPATHY 3. LUE WEAKNESS 4. BUE PARESTHESIAS 5. NECK PAIN Procedures: C5-C7 ACDF Patient Condition at Discharge: Good Plan - Discharge Summary Discharge Rx Participant: Yes New Discharge Prescriptions: New cefaDROXiL [Duricef] 500 mg PO Q12HR 5 Days #10 cap Cyclobenzaprine [Flexeril] 5 mg PO TID #21 tablet HYDROcodone/APAP 10-325MG [Ruth 10-325] 1 tab PO Q6HR PRN #28 tab PRN Reason: Pain Sennosides/Docusate Sodium [Senna Plus 8.6-50 mg Softgel] 1 each PO DAILY #20 capsule Gabapentin 300 mg PO TID #30 cap No Action Amitriptyline HCl 50 mg PO HS Ferrous Sulfate [Iron] 325 mg PO DAILY Valsartan 160 mg PO DAILY Omeprazole [PriLOSEC] 40 mg PO DAILY ARIPiprazole [Abilify] 30 mg PO DAILY Gabapentin 300 mg PO TID Acetaminophen Tab [Tylenol] 650 mg PO Q6H PRN PRN Reason: Pain Ergocalciferol [Vitamin D2 (1250 Mcg = 76501 Iu)] 1,250 mcg PO TU Mirtazapine 30 mg PO HS methocarbamoL 1,000 mg PO TID Empagliflozin [Jardiance] 10 mg PO DAILY Insulin Aspart [NovoLOG Flexpen] 24 units SQ AC-TID Insulin Glargine,Hum.rec.anlog [Lantus Solostar Pen] 60 units SQ TID Propranolol HCl [Inderal LA] 160 mg PO DAILY busPIRone HCL [Buspirone HCl] 15 mg PO TID Pioglitazone [Actos] 45 mg PO DAILY Ziprasidone [Geodon] 20 mg PO DAILY Rosuvastatin [Crestor] 10 mg PO DAILY Discharge Medication List Amitriptyline HCl 50 mg PO HS 06/01/21 [History] Ferrous Sulfate [Iron] 325 mg PO DAILY 06/01/21 [History] Valsartan 160 mg PO DAILY 10/08/22 [History] methocarbamoL 1,000 mg PO TID 10/08/22 [History] Empagliflozin [Jardiance] 10 mg PO DAILY 11/07/22 [History] Insulin Aspart [NovoLOG Flexpen] 24 units SQ AC-TID 11/07/22 [History] Omeprazole [PriLOSEC] 40 mg PO DAILY 11/07/22 [History] ARIPiprazole [Abilify] 30 mg PO DAILY 03/13/23 [History] Gabapentin 300 mg PO TID 03/13/23 [History] Insulin Glargine,Hum.rec.anlog [Lantus Solostar Pen] 60 units SQ TID 03/13/23 [History] Propranolol HCl [Inderal LA] 160 mg PO DAILY 03/13/23 [History] busPIRone HCL [Buspirone HCl] 15 mg PO TID 03/13/23 [History] Acetaminophen Tab [Tylenol] 650 mg PO Q6H PRN 01/07/24 [History] Ergocalciferol [Vitamin D2 (1250 Mcg = 72375 Iu)] 1,250 mcg PO TU 01/07/24 [History] Mirtazapine 30 mg PO HS 01/07/24 [History] Pioglitazone [Actos] 45 mg PO DAILY 01/07/24 [History] Rosuvastatin [Crestor] 10 mg PO DAILY 01/07/24 [History] Ziprasidone [Geodon] 20 mg PO DAILY 01/07/24 [History] Cyclobenzaprine [Flexeril] 5 mg PO TID #21 tablet 01/13/24 [Rx] Gabapentin 300 mg PO TID #30 cap 01/13/24 [Rx] HYDROcodone/APAP 10-325MG [Ruth 10-325] 1 tab PO Q6HR PRN #28 tab 01/13/24 [Rx] Sennosides/Docusate Sodium [Senna Plus 8.6-50 mg Softgel] 1 each PO DAILY #20 capsule 01/13/24 [Rx] cefaDROXiL [Duricef] 500 mg PO Q12HR 5 Days #10 cap 01/13/24 [Rx] Follow up Appointment(s)/Referral(s): Santiago Roque DO [Doctor of Osteopathic Medicine] - 01/28/24 9:00 am Activity/Diet/Wound Care/Special Instructions: Spine Discharge and Recovery Instructions Date of Surgery: 01/12/2024 Diagnosis: 1. 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 BUE RADICULOPATHY 3. LUE WEAKNESS 4. BUE PARESTHESIAS 5. NECK PAIN Procedure: C5-C7 ACDF Medications: See medication list All medication refills should be obtained through your primary care doctor or your clinic spine surgeon. Please discuss prescription refills at your follow up appointment. Do not call the hospital for medication refills. Dressing: Leave your dressing in place for a total of 5 days post operatively. Then you may remove your dressing and leave open to air. Keep the area clean and if not able to keep area clean, then cover with sterile gauze and tape. Showering: You may shower 3 days after your procedure allowing soap and water to run over incision. Do not scrub. Do not soak. Blot dry. Follow up: Please confirm a follow up appointment with your surgeon 3 weeks post operatively. Please make an appointment to follow up with your PCP in 1-2 weeks after surgery for evaluation `3 phase, 3-week plan POST OP WEEKS 1-3 1. Lifting/carrying/pushing/pulling limited to less than 5 pounds. 2. Do not sit for longer than 15 minutes at one time. Get up and walk around. Prolonged sitting is NOT advised. If you lay down, see if you can tolerate laying down on you front (belly side) 3. Walk for periods of 15 minutes = 1 mile but no longer; do it multiple times times each day. 4. Ice your low back after activity. POST OP WEEKS 3-6 1. Lifting limited to less than 20 pounds. 2. Do not sit for longer than 30 minutes at a time. Frequently change positions. Use a sit-to stand workstation or take frequent breaks from sitting if you have returned to work. 3. Walk for 30 minutes each day. If possible, do these three or more times a day POST OP WEEKS 6+ At your 6-week appointment we will give you a physical therapy referral to focus on a core stabilization and strengthening program. You should also work on leg & buttock strengthening, hamstring & quadriceps stretching, and continue a low impact aerobic activity program such as swimming, walking, or riding a stationary bicycle. During the initial 6 weeks after your surgery, you are at the highest risk of re-injuring your spine. You should generally avoid BLTs (bending, lifting and twisting combination motions) and follow the above guidelines to reduce the chance of reinjury. You can anticipate post op appointments in our office at approximately 3 weeks and 6 weeks after your surgery. INCISION CARE: If your incision is not draining you do NOT need to cover it with a dressing. Keep your incision clean, dry and intact. In most cases, we apply skin glue, cate or sutures to the incision at the time of surgery. This will be like a crust or have the appearance of a scab and will fall off in time on its own. The stitches or cate need to be removed at 3 weeks post op appointment. You may begin to shower 3 days after surgery (this allows the glue to galloway well). However, please avoid scrubbing the incision site or peeling off any of the skin glue. This will ensure optimal healing of your incision. Also, during this time avoid soaking the incision area in water - this includes swimming pools, hot tubs or baths. No ointments, lotions or o ils on the incision until your surgeon allows. Leave cate, sutures or glue in place. Neurological dysfunction that comes on suddenly can also be a sign of a stroke. Below some common symptoms of a stroke are listed: B - balance difficulty such as sudden onset walking or leaning to one side - NEW E - eye problem such as sudden double vision or trouble seeing on one side - NEW F - Facial weakness or numbness on one side - NEW A - Arm or leg weakness or numbness on one side - NEW S - Slurred speech or difficulty with word finding - NEW T - Time is BRAIN! Call 911 as soon as you recognize these symptoms Diet: Consume a regular diet rich in vegetables and lean protein such as chicken or fish. You should consume in a ratio of approximately 20% fats|40% carbohydrates|40%protein. Vegetables, sweet potatoes, brown rice or quinoa are examples of good carbohydrates. Chips, white bread, cookies and sweets/sugar are examples of bad carbohydrates. Limit your bad carbs, go wild with good carbs. 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 (1) Get Active. Physical activity can help people lose weight, control high blood pressure and cholesterol, feel emotionally better, and sleep better. (2) Control Cholesterol. Avoid a diet high in saturated fat, trans fat, & cholesterol. Limit whole milk & cream, ice cream, butter, egg yolks, processed meats (like sausage and hot dogs), and fatty meats. Choose healthy foods that are low in saturated fat, trans fat and cholesterol which include: Fruits and vegetables, fiber rich grain products (like whole grain pasta and brown rice), lean meat such as chicken, fish, nuts, seeds, and legumes. (3) Eat Better. Eat small portions. Shop at the grocery with a list and do not stray from it. Tips for a healthy diet include: Limit sodium intake to less than 1500mg daily, avoid prepackaged, processed, and fast foods, choose a diet rich in fruits, vegetables, and whole grain, high fiber foods, and limit saturated & cholesterol in your diet. (4) Manage Blood Pressure. If you have high blood pressure, you should have a cuff at home so that you can check your blood pressure regularly. Be sure you have a good cuff. An arm one is generally better than a wrist one. Bring the cuff to a doctor's appointment to validate that the measurements that your cuff are taking are accurate. Take your blood pressure twice daily when you are sitting down and relaxing. Record the numbers in a log and bring this log with you to your doctors' appointments. (5) Lose Weight if your BMI is above 25. A healthy BMI is between 19-25. To calculate Your BMI, you may use a Standard BMI Calculator on the NIH BMI website: <www.nhlbi.nih.gov/guidelines/obesity/BMI/bmicalc.htm>. Weigh oneself daily. If you are overweight, set a goal to lose weight. A pound a week loss if needed is a good target. (6) Reduce Blood Sugar. Limit foods and liquids with "added sugars." (Added sugars include sucrose, fructose, glucose, maltose, dextrose, high fructose corn syrup, corn syrup, concentrated fruit juice and honey). (7) Stop Smoking. If you smoke, quitting smoking is one of the best things that you can do for your health. Smoking increases your risk of heart attack, stroke, and peripheral vascular disease, which is a build-up of plaque in your arteries. Please discard all the cigarettes and lighters in your house. Have a plan for what you will do when you have the urge to smoke. Direct and second- hand smoke shortens your life as well as the lives of your family, friends and others around you. For your health and the health of those around you, please consider quitting! Proper Bending Body Mechanics: Maintain a wide stance with one foot slightly in front of the other. Keep your back straight. Bend utilizing the strength in your hips and knees. Do not bend at the waist. Maintain the lifted object at your waist-level close to your body. Avoid lifting weight that causes immediately pain or pain anywhere in the body afterwards. Smoking/Nicotine If there was ever one thing that you could do to increase your overall health, decrease your risk of cardiovascular problems by about 39% the second you make the choice, it is to STOP SMOKING. Your body's most instant gratification is the second you stop smoking. We have all heard the studies, read the articles but it is true, smoking is extremely bad for your overall health, and moreover it is detrimental to your bone health. Nicotine, IN ANY FORM, kills bone cells, prevents your body from healing fractures, and significantly prolongs healing after surgery. In spine surgery specifically, it increases your risk of not healing your bones to create a fusion and increases your risk of having a revision surgery due to this up to 60%. I know it is hard. I know it feels impossible. But there are ways. Take control of your life. We are here to help you through it. And when you are ready, ask us and we can direct you to help if you desire. Use the START Plan to Quit Smoking (please visit the Helpguide.org website listed below for more information): S = Set a quit date. Choose a date within the next 2 weeks, so you have enough time to prepare without losing your motivation to quit. If you mainly smoke at work, quit on the weekend, so you have a few days to adjust to the change. T = Tell family, friends, and co-workers that you plan to quit. Let your friends and family in on your plan to quit smoking and tell them you need their support and encouragement to stop. Look for a quit gianluca who wants to stop smoking as well. You can help each other get through the rough times. A = Anticipate and plan for the challenges you'll face while quitting. Most people who begin smoking again do so within the first 3 months. You can help yourself make it through by preparing ahead for common challenges, such as nicotine withdrawal and cigarette cravings. R = Remove cigarettes and other tobacco products from your home, car, and work. Throw away all your cigarettes (no emergency pack!), lighters, ashtrays, and matches. Wash your clothes and freshen up anything that smells like smoke. Shampoo your car, clean your drapes and carpet, and steam your furniture. T = Talk to your doctor about getting help to quit. Your doctor can prescribe medication to help with withdrawal and suggest other alternatives. If you can't see a doctor, you can get many products over the counter at your local pharmacy or grocery store, including the nicotine patch, nicotine lozenges, and nicotine gum. Resources for Quitting Smoking: <https://www.[place].gov/documents/[facility]/Quit_Tobacco_Resources_for_patients_313 480_7.pdf> Supplementation: Take recommended dosages of Vitamin D and Calcium to help fortify your bones and help them to heal. See your health maintenance packet for dosages and recommended levels. DVT/VTE prophylaxis: You will be given compression stockings from the hospital. Wear these daily for the first two weeks after surgery. You may take them off at night. You may be prescribed a medication to help thin your blood. Take this as directed. If you are not prescribed this medication, early and frequent ambulation has been shown to be the best prophylaxis to deep vein thrombosis and sequelae related to this event. Discharge Disposition: HOME SELF-CARE
[2024-01-13] MEDS ORDERED: INSULIN DETEMIR (LEVEMIR) 100 UNIT/ML SYR SQ SCH (21:00)
--- NOTE | 2024-01-14 07:08 | P.PN ---
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 with active medical history of type 2 diabetes, hypertension, hyperlipidemia, chronic lower back pain, chronic neuropathy, who is known to have history of pulmonary embolism off anticoagulation also severe GERD, chronic history of headache, type 2 diabetes insulin-dependent, mild overweight, depression and anxiety who was scheduled for elective surgery for C5-7 ACDF, apparently has been evaluated for neck and bilateral upper extremity pain with right upper extremity numbness and tingling sensation MRI of the c ervical spine from June last year revealed C5-6 and C6/7 HNP with moderate to severe stenosis there are cord signal changes that are happening at this level with no sign of fracture. Vertebral body height are preserved with multilevel bilateral foraminal stenosis with no acute osseous abnormality. With her persistent symptoms with failure to outpatient, physical therapy and epidural she was scheduled for elective C5-7 anterior cervical base ectomy and fusion. Patient was cleared for surgery by her primary care Dr. Tapia had her surgery on 01/13 2024 was admitted to the floor afterward feeling well and is feeling quite good pain discomfort otherwise hemodynamically stable. 01/13/2024: The patient had tolerated her procedure very well with no complication she still waiting cervical spine collar able to move her upper extremity still have slight numbness. She had a quite bit language barrier but able to understand the commonality of question here in general. She will be discharged home today hopefully after seeing him orthopedic doctor seen physical therapy. Her blood sugar has been doing well on current medication she will be going back on Mounjaro as a GLP-1 product beside her NovoLog, Lantus and Actos. Pain is under control currently on oral medication. No other complication patient be discharged she can be followed as an outpatient next few days. REVIEW OF SYSTEMS: CONSTITUTIONAL: Well-developed no acute respiratory distress. Wearing cervical spine collar EYES: No icterus sclerae, no conjunctivitis. EARS, NOSE, MOUTH, THROAT, and FACE: No sore throat, lymphadenopathy, carotid bruits or deformity. RESPIRATORY: No SOB cough or wheezes. CARDIOVASCULAR: No CP, Palpitation, PND, Orthopnea, or angina. GASTROINTESTINAL: No Abd pain, Nausea or vomiting, no Diarrhea or constipation, No GI Bleed, no distention or masses. GENITOURINARY: Negative for Hematuria or UTI, no kidney stones. INTEGUMENT/BREAST: Generalized myalgia and slight weakness in upper extremity. HEMATOLOGIC/LYMPHATIC: Negative for bleed or purpura. MUSCULOSKELTAL: Generalized arthralgia and myalgia. NEURLOGICAL: No LOC, Sz or syncope, blurred vision dizziness or abnormality. Still have slight weakness in the right upper extremity compared to the left side.. BEHAVIORAL/PSYCH: Negative. ENDOCRINE: Negative. PHYSICAL EXAMINATION: General Appearance: Alert, cooperative, no distress, appears stated age. Neck HEENT: Cervical spine collar with anterior incision., no lymphadenopathy, no thyroid enlargement, no carotid bruits. Lungs: Clear to auscultation without crackles or wheezes no rhonchi, no deformity. Chest Wall: Chest wall normal expansion with deep inspiration no tenderness and no deformity was found on exam, no costochondral pain or discomfort. Heart: Regular rate and rhythm, S1, S2 normal, no murmur, rub or gallop. Back: Symmetric, no curvature, ROM normal, no CVA tenderness. Abdomen: Soft, non-tender, bowel sounds active all four quadrants, no masses, no organomegaly. Extremities: Extremities normal, atraumatic, no cyanosis or edema. Pulses: 2+ and symmetric. Skin: Skin color, texture, tugor normal, no rashes or lesions. Neurologic: Alert oriented x3 cranial nerves II through XII intact, no motor deficit, no abnormal balance or gait. ASSESSMENT AND PLAN: _Post anterior C5-7 ACDF: Continue to watch patient hemodynamic status, continue pain meds and management. _Type 2 diabetes: Resume NovoLog 24 units AC meals along with Lantus 60 units daily. She is on Actos 45 units a day as well and Jardiance 10 mg daily and apparently was on Mounjaro which will be held for now. Accu-Chek with sliding scale coverage will be done her Lantus was order at 60 units 3 times daily which is around should be done either in the morning or at bedtime. _Hypertension: Has been on Inderal LA 160 mg a day and losartan 160 mg daily resume medication. Blood pressure well-controlled below 150. _Hyperlipidemia: Remain on Crestor 10 mg a day. _Chronic history of migraine: Currently has been on prophylaxis medication management which is enterology on exam. Continue Robaxin as well and a mitriptyline. _Chronic neuropathy: Has been on gabapentin 300 mg 3 times a day along with amitriptyline 50 mg at bedtime. _Chronic depression: Remain on BuSpar 15 mg 3 times daily, Geodon 20 mg daily still on mirtazapine 30 mg at bedtime amitriptyline 50 mg at bedtime and Abilify 30 mg daily _Chronic iron deficiency anemia: Continue iron supplement on regular basis and still on omeprazole. Prognosis: Very good. Discussion patient is very stable medically after surgery continue pain management increase mobility and patient be able to be discharged home with help today. Objective - Vital Signs Vital signs: Vital Signs Temp 97.7 F 01/13/24 07:40 Pulse 81 01/13/24 07:40 Resp 18 01/13/24 07:40 BP 125/79 01/13/24 07:40 Pulse Ox 93 L 01/13/24 07:40 FiO2 Intake & Output 01/12/24 01/13/24 01/13/24 18:59 06:59 18:59 Intake Total 1950 Output Total 250 Balance 1700 Weight 90.8 kg 90.8 kg Intake: IV 1950 Output: Urine 225 Estimated Blood Loss 25 Other: # Voids 2 - Labs CBC & Chem 7: 01/13/24 05:25 01/13/24 14:00 Labs: Abnormal Lab Results - Last 24 Hours (Table) 01/12/24 01/12/24 01/12/24 Range/Units 11:14 14:04 16:56 WBC (3.8-10.6) k/uL POC Glucose (mg/dL) 246 H 187 H 156 H (70-110) mg/dL 01/12/24 01/13/24 01/13/24 Range/Units 20:25 05:25 06:11 WBC 11.0 H (3.8-10.6) k/uL POC Glucose (mg/dL) 177 H 294 H (70-110) mg/dL
== END 2024-01-13 16:18 | disposition home or self-care (01) ==
LOC: OR 10:26 → 4SSUR 16:05
PROVIDERS: ADMIT Orthopaedic Surgery; ATTEND Orthopaedic Surgery
DX: M50.123 Cervical disc disorder at C6-C7 level with radiculopathy (principal); M48.02 Spinal stenosis, cervical region; Z79.4 Long term (current) use of insulin; Z79.84 Long term (current) use of oral hypoglycemic drugs; Z79.899 Other long term (current) drug therapy; Z80.0 Family history of malignant neoplasm of digestive organs; Z80.3 Family history of malignant neoplasm of breast; Z82.49 Family history of ischemic heart disease and other diseases of the circulatory system; Z83.3 Family history of diabetes mellitus; Z68.32 Body mass index [BMI] 32.0-32.9, adult; Z86.711 Personal history of pulmonary embolism; Z87.891 Personal history of nicotine dependence
CPT/HCPCS: 22551; 22552; 22845; 20936; 97161; 80048; 85025; 72040; 72125; G0378 ×2; C1713; J0690 ×2; J2405; J1170 ×3; J1790

== ENCOUNTER 2024-02-20 07:27 | Day surgery (SDC) | payer OTHER ==
[2024-02-18 11:36] VITALS: BMI 32.3
[2024-02-20 08:30] VITALS: RESP 16; TEMP 97
[2024-02-20] MEDS: IV FLUID CONTINUATION 1,000 ML IV ONE (08:38)
[2024-02-20] MEDS: LACTATED RINGERS 1,000 ML IV SCH (08:38)
[2024-02-20 08:59] LABS: Glucose,Whole Blood 148 mg/dL (70-110)
[2024-02-20] MEDS ORDERED: PROPOFOL 10 MG/ML 20 ML VIAL IV ONE (09:24)
--- NOTE | 2024-02-20 09:43 | P.PCN ---
Date of Procedure: 02/20/24 Procedure(s) Performed: BRIEF HISTORY: Patient is a 53-year-old pleasant female scheduled for an elective colonoscopy as a part of screening for colon cancer PROCEDURE PERFORMED: Colonoscopy. PREOPERATIVE DIAGNOSIS: Screening for colon cancer. IV sedation per Anesthesia. PROCEDURE: After informed consent was obtained, the patient, was brought into the endoscopy unit. IV sedation was administered by Anesthesia under continuous monitoring. Digital rectal examination was normal. Initially the Olympus CF-160 flexible video colonoscope was then inserted in the rectum, gradually advanced into the cecum without any difficulty. Careful examination was performed as the scope was gradually being withdrawn. Ileocecal valve and the appendiceal orifice were visualized and appeared normal. Prep was excellent. Mucosa of the cecum, ascending colon, transverse colon, descending colon, sigmoid colon, and rectum appeared normal. Retroflexion was performed in the rectum and no lesions were seen. The patient tolerated the procedure well. IMPRESSION: Normal-appearing colon from rectum to cecum with no evidence of colorectal neoplasia. RECOMMENDATIONS: Findings of this examination were discussed with the patient as well as her family. She was advised to have repeat screening colonoscopy in 10 years.
[2024-02-20 09:55] LABS: Glucose,Whole Blood 122 mg/dL (70-110)
[2024-02-20 09:59] VITALS: BP 106/64; PULSE 87
== END 2024-02-20 10:28 | disposition home or self-care (01) ==
LOC: ORWHC2ENDO 07:27
PROVIDERS: ATTEND Internal Medicine Gastroenterology
DX: Z12.11 Encounter for screening for malignant neoplasm of colon (principal); Z80.0 Family history of malignant neoplasm of digestive organs; I10 Essential (primary) hypertension; E11.69 Type 2 diabetes mellitus with other specified complication; E78.5 Hyperlipidemia, unspecified; F41.8 Other specified anxiety disorders; Z86.711 Personal history of pulmonary embolism; Z87.891 Personal history of nicotine dependence; Z79.4 Long term (current) use of insulin; Z79.899 Other long term (current) drug therapy; Z79.84 Long term (current) use of oral hypoglycemic drugs
CPT/HCPCS: 45378; J2704

== ENCOUNTER → 2024-06-15 | Outpatient (CLI) | payer OTHER ==
--- NOTE | 2024-06-15 10:04 | MM ---
Reason for Exam: Follow-up at short interval from prior study. Last screening mammogram was performed 6 month(s) ago. Patient History: Menarche at age 11. First Full-Term at age 16. Postmenopausal. Risk Values: Lisa 5 year model risk: 0.8%. NCI Lifetime model risk: 6.9%. Prior Study Comparison: 10/09/2022 Bilateral MG screening mammo w CAD, [facility]. 12/18/2023 Bilateral MG screening mammo w CAD, [facility]. 12/22/2023 Right MG 3D work up w/cad RT, [facility]. Tissue Density: Right: There are scattered areas of fibroglandular density. Findings: Analyzed By CAD. Calcification seen in the right breast the first slice on 3-D imaging possibly within a vessel/in the skin. No new suspicious masses, calcifications or distortions. Overall Assessment: Benign, BI-RAD 2 Management: Screening Mammogram of both breasts in 1 year. Results were given to the patient verbally at the time of exam. Patient should continue monthly self-breast exams. A clinical breast exam by your physician is recommended on an annual basis. This exam should not preclude additional follow-up of suspicious palpable abnormalities. Note on Lisa scores and lifetime risk: 1. A Lisa score greater than 3% is considered moderate risk. If this is the case, consider specialist referral to assess eligibility for a risk reducing agent. 2. If overall lifetime risk for the development of breast cancer is 20% or higher, the patient may qualify for future screening with alternating mammogram and breast MRI. [facility], , 06/15/2024 9:51 AM. Electronically signed and approved by: Juan Francisco Barbour DO
== END | disposition home or self-care (01) ==
LOC: RADMAMWWP 09:30
PROVIDERS: ATTEND Family Medicine
CPT/HCPCS: 77061; 77065

== ENCOUNTER → 2024-11-12 | Outpatient (CLI) | payer OTHER ==
--- NOTE | 2024-11-17 11:33 | P.PCN ---
Description of Procedure: CLINICAL: A home sleep apnea test has been done for confirmation of possible obstructive sleep apnea-hypopnea syndrome. DESCRIPTION OF PROCEDURE: RESULTS: Recording time was 8 hours 44 minutes. Evaluation time was 8 hours 23 minutes. Evaluation time is sufficient for making conclusion about results of the test. Raw data of sleep recording has been reviewed and is adequate. Respiratory channel showed 6 apneas and 91 hypopneas. Apnea-hypopnea index was 11.6 per hour. Pulse rate in the range between minimum 85, maximum 197, average 113 by computer calculation. Lowest desaturation was 75%. IMPRESSION: 1. Obstructive Sleep Apnea Hypopnea Syndrome. 2. Hypertension. Please see other impressions from consultation. PLAN: 1. The patient will be started on auto-PAP treatment for correction of respiratory abnormallities during sleep. 2. I will see patient for follow up visit to discuss results of the test, evaluate clinical response on treatment with PAP therapy and make any necessary adjustments related to mask fitting, pressure, and humidification. 3. Watching weight. 4. Sleep hygiene with regular time in bed for at least 8 hours. 5. No driving if feeling any sleepiness. Thank you very much for allowing me to participate in the management of your patient. Sincerely, Jevon Crawford MD, PhD, FAASM Diplomat of [employer] Sleep Medicine Board of [employer] Marketing Analytics Lead of [facility] [place] cc: Deja Tapia MD
== END ==
LOC: 3 N SLEEP 10:48
PROVIDERS: ATTEND Internal Medicine
DX: G47.33 Obstructive sleep apnea (adult) (pediatric) (principal); I10 Essential (primary) hypertension

== ENCOUNTER → 2024-11-30 | Outpatient (CLI) | payer OTHER ==
--- NOTE | 2024-11-30 16:01 | MR ---
EXAMINATION TYPE: MR shoulder LT wo con DATE OF EXAM: 11/30/2024 3:25 PM COMPARISON: MRI from outside facility dated 09/28/2020 CLINICAL INDICATION: Female, 54 years old with history of M25.512 PAIN IN LEFT SHOULDER, Left shoulde r pain x2 months, Hx shoulder surgery 3 yrs ago IV Contrast: cc (None if empty) TECHNIQUE: Multiplanar, multisequence imaging of the left shoulder is performed without contrast. FINDINGS: There is no bone contusion or fracture. There are tiny subchondral cysts in the lateral humeral head. There is no rotator cuff tear. Cartilaginous labrum is intact. The biceps tendon is not well seen within the bicipital groove but does not appear dislocated. Within the bicipital groove tendon appears diminutive in size raising the question of partial tearing or ch ronic tendinitis. There is no fluid within the biceps tendon sheath to suggest an acute abnormality. The biceps anchor is intact. There was fluid within the biceps tendon sheath on the prior study. IMPRESSION: 1.Findings raise the question of chronic biceps tendinitis or partial tearing 2. Mild subacromial bur sitis. 3. No evidence of rotator cuff tear or labral tear. [facility], , 11/30/2024 3:58 PM
== END | disposition home or self-care (01) ==
LOC: RADMRIMAIN 14:51
PROVIDERS: ATTEND Orthopaedic Surgery
DX: M75.52 Bursitis of left shoulder (principal)

== ENCOUNTER → 2024-12-08 | Outpatient (CLI) | payer OTHER ==
[2024-12-08 11:17] VITALS: BP 133/82; PULSE 88; RESP 16; TEMP 98
--- NOTE | 2024-12-08 12:15 | P.PROGSL ---
Subjective DATE: [] FOLLOW UP VISIT. Patient with obstructive sleep apnea hypopnea syndrome return to sleep center for follow-up visit. Recently patient had sleep study which documented obstructive sleep apnea hypopnea syndrome. Patient was initiated on PAP therapy and today is first visit after treatment was started. Follow-up visit was done with the help of Welsh-speaking towboat operator. I explained results of the sleep study to the patient in details. Patient was not able to use PAP equipment every night for the whole night mostly secondary to pressure problems. [place]mer sleepiness scale is 0. I checked information from PAP unit. PAP unit pressure 5-13, average 6.5 cm H2O. Usage is about 2.5 hours for several nights. Leak is increased to 45.1 l/m. Apnea Hypopnea Index is 1.2, which is normal. MEDICATIONS: Please see below During physical exam: GENERAL: A pleasant patient without any distress. VITAL SIGNS: Please see below. HEENT: PERRLA, EOMI.low position of soft palate, Mallapati 3 . NECK: Supple. No JVD. LUNGS: Clear to percussion and to auscultation. Good air exchange. No wheezing or rhonchi. HEART: S1, S2 regular. ABDOMEN: Soft and nontender.[] EXTREMITIES: No clubbing or cyanosis. JAVA PROGRAMMER ANALYST: Awake, alert, and oriented x3. No focal deficit. Impressions: 1. Obstructive sleep apnea-hypopnea syndrome. Patient cannot use CPAP most clearly secondary to pressure. Apnea hypopnea index reading from CPAP unit is normal. 2. Hypertension. 3. Diabetes mellitus. 4. Hyperlipidemia. 5. Mild obesity. 6. Status post bilateral shoulder surgery. 7. 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 I reduced maximal AutoPAP pressure down to 7 cm of water. Plan: 1. Continue using PAP equipment every night for the whole night. 2. To change air filter at least 1-2 times per month. 3. PAP unit should stay lower then position of the head. 4. Advised patient to remove all remaining water from humidifier canister daily and make it dry after each usage. Refill canister with fresh distilled water before each usage. 5. Sleep hygiene with regular time in bed for at least 8 hours. 6. Precautions related to driving. No driving if feel any sleepiness. 7. I will maintain prescription for PAP supplies including mask, tube, filters. 8. Follow up visit in 2 months or earlier if patient has any problems. 9. Watching weight. Thank you very much for allowing me to participate in the management of your patient. Jevon Crawford MD, PhD, FAASM. Diplomat of [employer] [employer], Sleep Medicine Board by [employer] Insulation Manager of [facility] [place] Objective - Vital Signs Vital Signs: Vital Signs Temp 98 F 12/08/24 11:16 Pulse 88 12/08/24 11:16 Resp 16 12/08/24 11:16 BP 133/82 12/08/24 11:16 Pulse Ox 100 12/08/24 11:16 FiO2 Home Medications: Home Medications Medication Instructions Recorded Confirmed Type Amitriptyline HCl 50 mg PO HS 06/01/21 10/21/24 History Ferrous Sulfate [Iron] 325 mg PO DAILY 06/01/21 02/18/24 History Valsartan 160 mg PO DAILY 10/08/22 10/21/24 History methocarbamoL 1,000 mg PO TID 10/08/22 02/20/24 History Empagliflozin [Jardiance] 10 mg PO DAILY 11/07/22 10/21/24 History Omeprazole [PriLOSEC] 40 mg PO DAILY 11/07/22 02/18/24 History ARIPiprazole [Abilify] 30 mg PO DAILY 03/13/23 02/18/24 History Insulin Glargine,Hum.rec.anlog 45 units SQ TID 03/13/23 10/21/24 History [Lantus Solostar Pen] Propranolol HCl [Inderal LA] 160 mg PO DAILY 03/13/23 10/21/24 History busPIRone HCL [Buspirone HCl] 15 mg PO TID 03/13/23 10/21/24 History Acetaminophen Tab [Tylenol] 650 mg PO Q6H PRN 01/07/24 10/21/24 History Ergocalciferol [Vitamin D2 (1250 1,250 mcg PO TU 01/07/24 02/18/24 History Mcg = 77384 Iu)] Mirtazapine 30 mg PO HS 01/07/24 02/18/24 History Rosuvastatin [Crestor] 10 mg PO DAILY 01/07/24 10/21/24 History Ziprasidone [Geodon] 20 mg PO DAILY 01/07/24 02/18/24 History Cyclobenzaprine [Flexeril] 5 mg PO TID #21 tablet 01/13/24 02/18/24 Rx Gabapentin 300 mg PO TID #30 cap 01/13/24 10/21/24 Rx
== END ==
LOC: 3 N SLEEP 10:54
PROVIDERS: ATTEND Internal Medicine
DX: G47.33 Obstructive sleep apnea (adult) (pediatric) (principal); I10 Essential (primary) hypertension; E11.9 Type 2 diabetes mellitus without complications; E78.5 Hyperlipidemia, unspecified; E66.01 Morbid (severe) obesity due to excess calories; R44.3 Hallucinations, unspecified; Z96.612 Presence of left artificial shoulder joint
CPT/HCPCS: 99212

== ENCOUNTER → 2025-02-09 | Outpatient (CLI) | payer OTHER ==
[2025-02-09 15:39] VITALS: BP 104/65; PULSE 78; RESP 16; TEMP 98.2
--- NOTE | 2025-02-09 18:00 | P.PROGSL ---
Subjective DATE: 02/09/2025 FOLLOW UP VISIT. Patient with obstructive sleep apnea hypopnea syndrome return to sleep center for follow-up visit. Information from previous visit have been reviewed. Patient is using PAP equipment every night for the whole night, getting PAP supplies in time. The patient does not have significant problems with the mask, PAP unit and humidification. [place] sleepiness scale is 8. I checked information from PAP unit. PAP unit pressure 5-13, average 7.5 cm H2O. Apnea Hypopnea Index is 1.0, which is normal. Leak is increased to 38 l/m. Usage is 97% and 60% for more than 4 hours, average 4 hours per night. MEDICATIONS have been reviewed, please see below. During physical exam: GENERAL: A pleasant patient without any distress. VITAL SIGNS: Please see below, weight is 176 lbs. HEENT: PERRLA, EOMI.low position of soft palate, Mallapati 3. NECK: Supple. No JVD. LUNGS: Clear to percussion and to auscultation. Good air exchange. No wheezing or rhonchi. HEART: S1, S2 regular. ABDOMEN: Soft and nontender.[] EXTREMITIES: No clubbing or cyanosis. BRISTLE MACHINE OPERATOR: Awake, alert, and oriented x3. No focal deficit. Impressions: 1. Obstructive sleep apnea-hypopnea syndrome. Patient demonstrated borderline compliance with treatment, benefiting from treatment. 2. Hypertension. 3. Diabetes mellitus. 4. Hyperlipidemia. 5. Mild obesity. 6. History of questionable cataplexy and hypnogogical hallucinations. Plan: 1. Continue using PAP equipment every night for the whole night. Extend trial. For another 90 days. 2. Sleep hygiene with regular time in bed for at least 7.5-8 hours 3. PAP unit should stay lower then position of the head. 4. Advised patient to remove all remaining water from humidifier canister daily and make it dry after each usage. Refill canister with fresh distilled water before each usage. 5. Watching weight. 6. Precautions related to driving. No driving if feel any sleepiness. 7. I will maintain prescription for PAP supplies including mask, tube, filters. 8. Follow up visit in 2-3 months or earlier if patient has any problems. Thank you very much for allowing me to participate in the management of your patient. Jevon Crawford MD, PhD, FAASM. Diplomat of [employer], Sleep Medicine Board by [employer] Dining Room Helper [facility] [place] Objective - Vital Signs Vital Signs: Vital Signs Temp 98.2 F 02/09/25 15:38 Pulse 78 02/09/25 15:38 Resp 16 02/09/25 15:38 BP 104/65 02/09/25 15:38 Pulse Ox 99 02/09/25 15:38 FiO2 Intake & Output 02/08/25 02/09/25 02/09/25 18:59 06:59 18:59 Weight 79.832 kg Home Medications: Home Medications Medication Instructions Recorded Confirmed Type Amitriptyline HCl 50 mg PO HS 06/01/21 10/21/24 History Ferrous Sulfate [Iron] 325 mg PO DAILY 06/01/21 02/18/24 History Valsartan 160 mg PO DAILY 10/08/22 10/21/24 History methocarbamoL 1,000 mg PO TID 10/08/22 02/20/24 History Empagliflozin [Jardiance] 10 mg PO DAILY 11/07/22 10/21/24 History Omeprazole [PriLOSEC] 40 mg PO DAILY 11/07/22 02/18/24 History ARIPiprazole [Abilify] 30 mg PO DAILY 03/13/23 02/18/24 History Insulin Glargine,Hum.rec.anlog 45 units SQ TID 03/13/23 10/21/24 History [Lantus Solostar Pen] Propranolol HCl [Inderal LA] 160 mg PO DAILY 03/13/23 10/21/24 History busPIRone HCL [Buspirone HCl] 15 mg PO TID 03/13/23 10/21/24 History Acetaminophen Tab [Tylenol] 650 mg PO Q6H PRN 01/07/24 10/21/24 History Ergocalciferol [Vitamin D2 (1250 1,250 mcg PO TU 01/07/24 02/18/24 History Mcg = 03302 Iu)] Mirtazapine 30 mg PO HS 01/07/24 02/18/24 History Rosuvastatin [Crestor] 10 mg PO DAILY 01/07/24 10/21/24 History Ziprasidone [Geodon] 20 mg PO DAILY 01/07/24 02/18/24 History Cyclobenzaprine [Flexeril] 5 mg PO TID #21 tablet 01/13/24 02/18/24 Rx Gabapentin 300 mg PO TID #30 cap 01/13/24 10/21/24 Rx
== END ==
LOC: 3 N SLEEP 14:56
PROVIDERS: ATTEND Internal Medicine
DX: G47.33 Obstructive sleep apnea (adult) (pediatric) (principal); I10 Essential (primary) hypertension; E11.9 Type 2 diabetes mellitus without complications; E78.5 Hyperlipidemia, unspecified; E66.9 Obesity, unspecified; Z87.898 Personal history of other specified conditions; Z99.89 Dependence on other enabling machines and devices
CPT/HCPCS: 99212